=== PATIENT | male | born 1965 | race Caucasian/White ===

== ENCOUNTER 2017-05-22 14:04 | Outpatient (CLI) | payer MEDICARE, MEDICAID, SELFPAY ==
[2017-05-22 14:21] VITALS: BMI 36.4
[2017-05-22 14:40] VITALS: BP 86/49; PULSE 68; RESP 20; TEMP 36.6; O2SAT 98
[2017-05-22 14:51] LABS: Anion Gap 11.1 mEq/L (5-15); Blood Urea Nitrogen 20 mg/dL (7-18); Carbon Dioxide 30 mmol/L (21.0-32.0); Chloride 103 mmol/L (98-107); Creatinine Clearance Estimated 127 mL/min (0-300); Creatinine,Serum 1.11 mg/dL (0.70-1.30); Estimated Glomerular Filt Rate 70 ml/min (>60); GFR (African American) 84 ML/MIN (>60); Glucose 220 mg/dL (74-106); Potassium 4.1 mmoL/L (3.5-5.1); Sodium 140 mmol/L (136-145)
[2017-05-22 15:05] VITALS: BP 86/49; PULSE 68; RESP 20; TEMP 36.6; O2SAT 98
== END 2017-05-22 15:00 | disposition home or self-care (01) ==
LOC: INF 14:04
PROVIDERS: Visit Provider Urology
DX: N39.0 Urinary tract infection, site not specified (principal)
CPT/HCPCS: 80048; 96372; J1335

== ENCOUNTER 2017-05-23 14:42 | Outpatient (CLI) | payer MEDICARE, MEDICAID, SELFPAY ==
[2017-05-23 15:08] VITALS: BP 86/50; PULSE 71; RESP 20; TEMP 36.8; O2SAT 97
[2017-05-23 15:59] LABS: Basophils % 0.4 % (0.1-2.0); Eosinophils # 0.2 K/mm3 (0.0-0.4); Eosinophils % 4.1 % (0.1-12.0); Hematocrit 47.7 % (42.0-52.0); Hemoglobin 14.8 g/dL (14.1-18.0); Lymphocytes # 1.4 K/mm3 (0.7-4.5); Lymphocytes % 26.3 K/mm3 (10-50); Mean Corpuscular HGB Conc 31.1 g/dL (31.8-35.4); Mean Corpuscular Hemoglobin 29.2 pg (27.0-31.2); Mean Corpuscular Volume 93.9 fl (80-94); Monocytes # 0.4 K/mm3 (0.1-1.0); Monocytes % 7.7 % (1.7-9.3); Neutrophils # 3.2 K/mm3 (1.8-7.8); Neutrophils % 61.5 % (37.0-80.0); Platelet Count 205 K/mm3 (142-424); Red Blood Count 5.08 M/mm3 (4.60-6.20); Red Cell Distribution Width 14.5 % (11.5-17.5); White Blood Count 5.2 K/mm3 (4.8-10.8)
[2017-05-23 19:31] LABS: Alanine Aminotransferase 32 U/L (12-78); Albumin Level 3.2 gm/dL (3.4-5.0); Alkaline Phosphatase 86 U/L (46-116); Anion Gap 13.1 mEq/L (5-15); Aspartate Amino Transferase 8 U/L (15-37); Bilirubin,Total 0.2 mg/dL (0.2-1.0); Blood Urea Nitrogen 18 mg/dL (7-18); Calcium 8.4 mg/dL (8.5-10.1); Carbon Dioxide 29 mmol/L (21.0-32.0); Chloride 102 mmol/L (98-107); Creatinine,Serum 0.99 mg/dL (0.70-1.30); Estimated Glomerular Filt Rate 79 ml/min (>60); GFR (African American) 96 ML/MIN (>60); Globulin 3.3 gm/dl (1.3-3.2); Glucose 237 mg/dL (74-106); Magnesium 1.5 mg/dL (1.4-2.2); Potassium 4.1 mmoL/L (3.5-5.1); Sodium 140 mmol/L (136-145); Total Protein,Serum 6.5 gm/dL (6.4-8.2)
[2017-05-25 19:23] LABS: Vitamin B12 426 pg/mL (232-1245)
== END 2017-05-23 15:20 | disposition home or self-care (01) ==
LOC: INF 14:42
PROVIDERS: Visit Provider Urology
DX: K59.09 Other constipation (principal); R10.11 Right upper quadrant pain; Z12.11 Encounter for screening for malignant neoplasm of colon; Z79.899 Other long term (current) drug therapy
CPT/HCPCS: 36415; 80053; 82607; 83735; 85025; 96372; J1335

== ENCOUNTER 2017-05-24 15:40 | Outpatient (CLI) | payer MEDICARE, MEDICAID, SELFPAY ==
[2017-05-24 16:10] VITALS: BP 112/67; PULSE 80; RESP 18; TEMP 36.4
== END 2017-05-24 16:25 | disposition home or self-care (01) ==
LOC: INF 15:55
PROVIDERS: Visit Provider Urology
DX: N39.0 Urinary tract infection, site not specified (principal)
CPT/HCPCS: 96372; J1335

== ENCOUNTER 2017-05-25 13:35 | Outpatient (CLI) | payer MEDICARE, MEDICAID, SELFPAY ==
[2017-05-25 14:05] VITALS: BP 105/66; PULSE 77; RESP 18; TEMP 36.9
== END 2017-05-25 14:20 | disposition home or self-care (01) ==
LOC: INF 13:42
PROVIDERS: Visit Provider Urology
DX: N39.0 Urinary tract infection, site not specified (principal)
CPT/HCPCS: 96372; J1335

== ENCOUNTER → 2017-05-26 13:56 | Outpatient (CLI) | payer MEDICARE, MEDICAID, SELFPAY ==
[2017-05-26 13:56] VITALS: BP 107/59; PULSE 70; RESP 20; TEMP 36.8; O2SAT 96
[2017-05-26 14:19] VITALS: BP 107/59; PULSE 70; RESP 20; TEMP 36.8; O2SAT 98; BMI 80.6
== END ==
PROVIDERS: Visit Provider Urology
DX: N39.0 Urinary tract infection, site not specified (principal)
CPT/HCPCS: 96372; G0463; J1335

== ENCOUNTER → 2017-05-27 13:06 | Outpatient (CLI) | payer MEDICARE, MEDICAID, SELFPAY ==
[2017-05-27 13:06] VITALS: BP 98/62; PULSE 78; RESP 18; TEMP 36.9; O2SAT 97
[2017-05-27 13:25] VITALS: BP 90/61; PULSE 77; RESP 18; TEMP 36.7; O2SAT 98; BMI 36.6
== END ==
PROVIDERS: Visit Provider Urology
DX: N39.0 Urinary tract infection, site not specified (principal)
CPT/HCPCS: 96372; G0463; J1335

== ENCOUNTER 2017-05-28 13:50 | Outpatient (CLI) | payer MEDICARE, MEDICAID, SELFPAY ==
[2017-05-28 13:45] VITALS: BP 118/70; PULSE 68; RESP 20; TEMP 37.1; O2SAT 96
[2017-05-28 14:10] VITALS: BP 118/70; PULSE 68; RESP 20; TEMP 37.1; O2SAT 96
== END 2017-05-28 14:10 | disposition home or self-care (01) ==
LOC: INF 13:53
PROVIDERS: Visit Provider Urology
DX: N39.0 Urinary tract infection, site not specified (principal)
CPT/HCPCS: 96372; J1335

== ENCOUNTER 2017-05-29 13:45 | Outpatient (CLI) | payer MEDICARE, MEDICAID, SELFPAY ==
[2017-05-29 13:35] VITALS: BP 135/90; PULSE 68; RESP 20; TEMP 36.6; O2SAT 96
[2017-05-29 14:30] VITALS: BP 135/90; PULSE 68; RESP 20; TEMP 36.6; O2SAT 96
== END 2017-05-29 14:30 | disposition home or self-care (01) ==
LOC: INF 13:48
PROVIDERS: Visit Provider Urology
DX: N39.0 Urinary tract infection, site not specified (principal)
CPT/HCPCS: 96372; J1335

== ENCOUNTER 2017-05-30 13:30 | Outpatient (CLI) | payer MEDICARE, MEDICAID, SELFPAY ==
[2017-05-30 13:48] VITALS: BP 91/52; PULSE 74; RESP 18; TEMP 36.6; O2SAT 95
== END 2017-05-30 14:00 | disposition home or self-care (01) ==
LOC: INF 13:45
PROVIDERS: Visit Provider Urology
DX: N39.0 Urinary tract infection, site not specified (principal)
CPT/HCPCS: 96372; J1335

== ENCOUNTER 2017-05-31 14:40 | Outpatient (CLI) | payer MEDICARE, MEDICAID, SELFPAY ==
[2017-05-31 15:10] VITALS: BP 127/82; PULSE 67; RESP 18; TEMP 36.1; O2SAT 94
== END 2017-05-31 15:25 | disposition home or self-care (01) ==
LOC: INF 14:45
PROVIDERS: Visit Provider Urology
DX: N39.0 Urinary tract infection, site not specified (principal)
CPT/HCPCS: 96372; J1335

== ENCOUNTER → 2017-07-18 20:53 | Outpatient (CLI) | payer MEDICARE, MEDICAID, SELFPAY | PROVIDERS: PCP Family Medicine; Visit Provider Specialist | DX: G47.33 Obstructive sleep apnea (adult) (pediatric) (principal) | CPT/HCPCS: 95811 ==

== ENCOUNTER 2017-10-09 14:07 | Outpatient (CLI) | payer MEDICARE, MEDICAID, SELFPAY ==
[2017-10-09 14:30] VITALS: BP 110/65; PULSE 59; RESP 20; TEMP 36.7; O2SAT 97
[2017-10-09 14:49] LABS: Anion Gap 14.1 mEq/L (5-15); Blood Urea Nitrogen 20 mg/dL (7-18); Calcium 8.8 mg/dL (8.5-10.1); Carbon Dioxide 28 mmol/L (21.0-32.0); Chloride 105 mmol/L (98-107); Creatinine,Serum 1.06 mg/dL (0.70-1.30); Estimated Glomerular Filt Rate 73 ml/min (>60); GFR (African American) 89 ML/MIN (>60); Glucose 227 mg/dL (74-106); Potassium 4.1 mmoL/L (3.5-5.1); Sodium 143 mmol/L (136-145)
== END 2017-10-09 14:40 | disposition home or self-care (01) ==
LOC: INF 14:07
PROVIDERS: PCP Family Medicine; Visit Provider Urology
DX: N39.0 Urinary tract infection, site not specified (principal)
CPT/HCPCS: 80048; 96372; J1335

== ENCOUNTER 2017-10-10 14:00 | Outpatient (CLI) | payer MEDICARE, MEDICAID, SELFPAY ==
[2017-10-10 14:15] VITALS: BP 129/84; PULSE 66; RESP 18
== END 2017-10-10 14:15 | disposition home or self-care (01) ==
LOC: INF 14:14
PROVIDERS: PCP Family Medicine; Visit Provider Urology
DX: N39.0 Urinary tract infection, site not specified (principal)
CPT/HCPCS: 96372; J1335

== ENCOUNTER 2017-10-11 13:49 | Outpatient (CLI) | payer MEDICARE, MEDICAID, SELFPAY ==
[2017-10-11 14:00] VITALS: BP 86/53; PULSE 73; RESP 18; TEMP 36.6; O2SAT 93
== END 2017-10-11 14:00 | disposition home or self-care (01) ==
LOC: INF 13:49
PROVIDERS: PCP Family Medicine; Visit Provider Urology
DX: N39.0 Urinary tract infection, site not specified (principal)
CPT/HCPCS: 96372; J1335

== ENCOUNTER 2017-10-12 14:00 | Outpatient (CLI) | payer MEDICARE, MEDICAID, SELFPAY ==
[2017-10-12 14:35] VITALS: BP 84/59; PULSE 80; RESP 18; TEMP 36.4; O2SAT 94
== END 2017-10-12 14:35 | disposition home or self-care (01) ==
LOC: INF 14:20
PROVIDERS: PCP Family Medicine; Visit Provider Urology
DX: N39.0 Urinary tract infection, site not specified (principal)
CPT/HCPCS: 96372; J1335

== ENCOUNTER → 2017-10-13 15:33 | Outpatient (CLI) | payer MEDICARE, MEDICAID, SELFPAY ==
[2017-10-13 15:51] VITALS: BP 111/66; PULSE 76; RESP 18; TEMP 37.2; O2SAT 95; BMI 36.0
[2017-10-13 15:55] VITALS: BP 111/66; PULSE 76; RESP 18; TEMP 37.2; O2SAT 95
== END ==
PROVIDERS: PCP Family Medicine; Visit Provider Urology
DX: N39.0 Urinary tract infection, site not specified (principal)
CPT/HCPCS: 96372; G0463; J1335

== ENCOUNTER → 2017-10-14 14:35 | Outpatient (CLI) | payer MEDICARE, MEDICAID, SELFPAY ==
[2017-10-14 14:35] VITALS: BP 110/46; PULSE 77; RESP 18; TEMP 36.6; O2SAT 97
[2017-10-14 14:47] VITALS: BP 107/48; PULSE 77; RESP 18; TEMP 36.6; O2SAT 95; BMI 36.0
== END ==
PROVIDERS: PCP Family Medicine; Visit Provider Urology
DX: N39.0 Urinary tract infection, site not specified (principal)
CPT/HCPCS: 96372; G0463; J1335

== ENCOUNTER 2017-10-15 14:58 | Outpatient (CLI) | payer MEDICARE, MEDICAID, SELFPAY ==
[2017-10-15 15:10] VITALS: BP 103/63; PULSE 69; RESP 18; O2SAT 97
== END 2017-10-15 15:10 | disposition home or self-care (01) ==
LOC: INF 14:59
PROVIDERS: PCP Family Medicine; Visit Provider Urology
DX: N39.0 Urinary tract infection, site not specified (principal)
CPT/HCPCS: 96372; J1335

== ENCOUNTER 2017-10-16 14:24 | Outpatient (CLI) | payer MEDICARE, MEDICAID, SELFPAY ==
[2017-10-16 14:22] VITALS: BP 88/64; PULSE 74; RESP 18; TEMP 36.7; O2SAT 95
== END 2017-10-16 14:35 | disposition home or self-care (01) ==
LOC: INF 14:24
PROVIDERS: PCP Family Medicine; Visit Provider Urology
DX: N39.0 Urinary tract infection, site not specified (principal)
CPT/HCPCS: 96372; J1335

== ENCOUNTER 2017-10-17 14:05 | Outpatient (CLI) | payer MEDICARE, MEDICAID, SELFPAY ==
[2017-10-17 14:30] VITALS: BP 86/58; PULSE 71; RESP 18; TEMP 36.6; O2SAT 95
== END 2017-10-17 14:38 | disposition home or self-care (01) ==
LOC: INF 14:20
PROVIDERS: PCP Family Medicine; Visit Provider Urology
DX: N39.0 Urinary tract infection, site not specified (principal)
CPT/HCPCS: 96372; J1335

== ENCOUNTER 2017-10-18 15:27 | Outpatient (CLI) | payer MEDICARE, MEDICAID, SELFPAY ==
[2017-10-18 15:32] VITALS: BP 99/60; PULSE 74; RESP 18; O2SAT 95
== END 2017-10-18 15:46 | disposition home or self-care (01) ==
LOC: INF 15:27
PROVIDERS: PCP Family Medicine; Visit Provider Urology
DX: N39.0 Urinary tract infection, site not specified (principal)
CPT/HCPCS: 96372; J1335

== ENCOUNTER → 2018-03-06 09:14 | Outpatient (CLI) | payer MEDICARE, MEDICAID, SELFPAY | PROVIDERS: PCP Family Medicine; Visit Provider Internal Medicine | DX: E11.8 Type 2 diabetes mellitus with unspecified complications (principal); G47.33 Obstructive sleep apnea (adult) (pediatric); I25.10 Atherosclerotic heart disease of native coronary artery without angina pectoris; R94.31 Abnormal electrocardiogram [ECG] [EKG] | CPT/HCPCS: 93306 ==

== ENCOUNTER → 2018-03-25 08:41 | Outpatient (CLI) | payer MEDICARE, MEDICAID, SELFPAY ==
[2018-03-25 11:10] LABS: Alanine Aminotransferase 35 U/L (12-78); Albumin Level 3.1 gm/dL (3.4-5.0); Albumin/Globulin Ratio 0.8 (1.1-1.8); Alkaline Phosphatase 85 U/L (46-116); Aspartate Amino Transferase 18 U/L (15-37); Bilirubin,Total 0.3 mg/dL (0.2-1.0); Blood Urea Nitrogen 16 mg/dL (7-18); Calcium 8.7 mg/dL (8.5-10.1); Carbon Dioxide 31 mmol/L (21.0-32.0); Chloride 101 mmol/L (98-107); Chol/HDL Ratio 4.2 (1-3.5); Cholesterol 137 mg/dL (140-200); Estimated Glomerular Filt Rate 118 ml/min (>60); GFR (African American) 143 ML/MIN (>60); Globulin 3.8 gm/dl (1.3-3.2); Glucose 158 mg/dL (74-106); HDL Cholesterol 33 mg/dL (27-67); LDL Cholesterol 46 mg/dL (0-130); Sodium 142 mmol/L (136-145); Thyroid Stimulating Hormone 1.95 uIU/ml (0.358-3.740); Total Protein,Serum 6.9 gm/dL (6.4-8.2); Triglycerides 289 mg/dL (30-200); VLDL Cholesterol 58 mg/dL (0-40)
== END ==
PROVIDERS: Visit Provider Physician Assistant
DX: E11.22 Type 2 diabetes mellitus with diabetic chronic kidney disease (principal); I10 Essential (primary) hypertension; Z13.220 Encounter for screening for lipoid disorders
CPT/HCPCS: 36415; 80053; 80061; 84443

== ENCOUNTER → 2018-04-01 14:20 | Outpatient (CLI) | payer MEDICARE, MEDICAID, SELFPAY ==
--- NOTE | 2018-04-01 14:27 | US_ITS ---
US Arterial Ankle Brachial Ind History: Skin color changes with edema, diabetes and hypertension ORDERING PHYSICIAN: Joann Marmolejo DPM PATIENT AGE: 53 years TECHNIQUE: Segmental pressures obtained of both right and left leg. These are compared to brachial blood pressure to yield index at each level sampled including summary TAMMY. The data sheets from the procedure are available in PACS FINDINGS Rest study only performed today No prior studies available for comparison. Blood pressures reported are in millimeters mercury. Bilateral ABIs are noncompressible consistent with hardening/calcification of the arteries. The right TBI is 0.90 left TAMMY 0.8 within normal limits. IMPRESSION: Noncompressible vessels of the lower extremities consistent with hardening/calcification of the arteries. ABIs not able to be calculated
== END ==
PROVIDERS: PCP Family Medicine; Visit Provider Podiatrist
DX: R09.89 Other specified symptoms and signs involving the circulatory and respiratory systems (principal)
CPT/HCPCS: 93922

== ENCOUNTER → 2018-04-12 15:31 | Outpatient (CLI) | payer MEDICARE, MEDICAID, SELFPAY ==
[2018-04-12 17:10] LABS: Anion Gap 15.2 mEq/L (5-15); Blood Urea Nitrogen 24 mg/dL (7-18); Calcium 9.5 mg/dL (8.5-10.1); Carbon Dioxide 29 mmol/L (21.0-32.0); Chloride 101 mmol/L (98-107); Estimated Glomerular Filt Rate 88 ml/min (>60); GFR (African American) 107 ML/MIN (>60); Glucose 247 mg/dL (74-106); Potassium 4.2 mmoL/L (3.5-5.1); Sodium 141 mmol/L (136-145)
== END ==
PROVIDERS: Urology; PCP Family Medicine; Visit Provider Internal Medicine
DX: I25.10 Atherosclerotic heart disease of native coronary artery without angina pectoris (principal); I51.9 Heart disease, unspecified
CPT/HCPCS: 36415; 80048

== ENCOUNTER 2018-06-25 15:00 | Outpatient (RCR) | payer MEDICARE, MEDICAID, SELFPAY ==
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
== END 2018-06-25 15:05 | disposition home or self-care (01) ==
LOC: PT 15:00
PROVIDERS: Visit Provider Podiatrist
DX: I89.0 Lymphedema, not elsewhere classified (principal); R09.89 Other specified symptoms and signs involving the circulatory and respiratory systems
CPT/HCPCS: 97140; 97162; 97760

== ENCOUNTER 2018-06-28 14:49 | Outpatient (CLI) | payer MEDICARE, MEDICAID, SELFPAY ==
[2018-06-28 15:10] VITALS: BP 125/75; PULSE 84; RESP 18; O2SAT 97
== END 2018-06-28 15:25 | disposition home or self-care (01) ==
LOC: INF 14:49
PROVIDERS: Visit Provider Urology
DX: N39.0 Urinary tract infection, site not specified (principal)
CPT/HCPCS: 96372; J1335

== ENCOUNTER 2018-06-29 18:37 | Outpatient (CLI) | payer MEDICARE, MEDICAID, SELFPAY ==
[2018-06-29 18:58] VITALS: BP 93/51; PULSE 96; RESP 16; O2SAT 98
[2018-06-29 19:11] VITALS: BP 93/51; PULSE 95; RESP 16; O2SAT 97
== END 2018-06-29 19:11 | disposition home or self-care (01) ==
LOC: INF 18:38
PROVIDERS: PCP Family Medicine; Visit Provider Urology
DX: N39.0 Urinary tract infection, site not specified (principal)
CPT/HCPCS: 96372; J1335

== ENCOUNTER 2018-06-30 14:03 | Outpatient (CLI) | payer MEDICARE, MEDICAID, SELFPAY ==
[2018-06-30 14:32] VITALS: BP 80/53; PULSE 99; RESP 16
[2018-06-30 14:34] VITALS: BP 80/53; PULSE 99; RESP 16; O2SAT 100
== END 2018-06-30 14:34 | disposition home or self-care (01) ==
LOC: INF 14:04
PROVIDERS: PCP Family Medicine; Visit Provider Urology
DX: N39.0 Urinary tract infection, site not specified (principal)
CPT/HCPCS: 96372; J1335

== ENCOUNTER 2018-07-01 13:55 | Outpatient (CLI) | payer MEDICARE, MEDICAID, SELFPAY ==
[2018-07-01 13:55] VITALS: BP 102/46; PULSE 40; RESP 18; TEMP 37.1; O2SAT 95; O2SAT 96
== END 2018-07-01 14:05 | disposition home or self-care (01) ==
LOC: INF 14:12
PROVIDERS: Visit Provider Urology
DX: N39.0 Urinary tract infection, site not specified (principal)
CPT/HCPCS: 96372; J1335

== ENCOUNTER 2018-07-02 14:18 | Outpatient (CLI) | payer MEDICARE, MEDICAID, SELFPAY ==
[2018-07-02 14:29] VITALS: BP 89/65; PULSE 62; RESP 18; TEMP 36.5; O2SAT 95
--- NOTE | 2018-07-02 14:35 | PC.NURSE ---
1429 Invanz 500mg IM given per R thigh. Pt maki well. No prob noted at site.
== END 2018-07-02 14:39 | disposition home or self-care (01) ==
LOC: INF 14:18
PROVIDERS: Visit Provider Urology
DX: N39.0 Urinary tract infection, site not specified (principal)
CPT/HCPCS: 96372; J1335

== ENCOUNTER 2018-07-02 15:00 | Outpatient (RCR) | payer MEDICARE, MEDICAID, SELFPAY | END 2018-07-02 15:05 | disposition home or self-care (01) | LOC: PT 15:00 | PROVIDERS: Visit Provider Physical Medicine & Rehabilitation | DX: G82.50 Quadriplegia, unspecified (principal) | CPT/HCPCS: 97110; 97112; 97140; 97163; 97530 ==

== ENCOUNTER 2018-07-03 14:03 | Outpatient (CLI) | payer MEDICARE, MEDICAID, SELFPAY ==
--- NOTE | 2018-07-03 14:06 | PC.NURSE ---
1406 Invanz 500mg IM L thigh given. Pt maki well.
== END 2018-07-03 14:15 | disposition home or self-care (01) ==
LOC: INF 14:03
PROVIDERS: Visit Provider Urology
DX: N39.0 Urinary tract infection, site not specified (principal)
CPT/HCPCS: 96372; J1335

== ENCOUNTER 2018-07-04 12:30 | Outpatient (CLI) | payer MEDICARE, MEDICAID, SELFPAY ==
[2018-07-04 12:45] VITALS: BP 73/57; PULSE 91; RESP 18; O2SAT 94
== END 2018-07-04 13:00 | disposition home or self-care (01) ==
LOC: INF 12:37
PROVIDERS: Visit Provider Urology
DX: N39.0 Urinary tract infection, site not specified (principal)
CPT/HCPCS: 96372; J1335

== ENCOUNTER 2018-07-05 15:40 | Outpatient (CLI) | payer MEDICARE, MEDICAID, SELFPAY ==
[2018-07-05 15:45] VITALS: BP 89/48; PULSE 68; RESP 20; TEMP 36.9
== END 2018-07-05 16:00 | disposition home or self-care (01) ==
LOC: INF 15:40
PROVIDERS: Visit Provider Urology
DX: N39.0 Urinary tract infection, site not specified (principal)
CPT/HCPCS: 96372; J1335

== ENCOUNTER → 2018-07-06 08:58 | Outpatient (CLI) | payer MEDICARE, MEDICAID, SELFPAY ==
[2018-07-06 09:37] LABS: Creatinine,Urine Random 23 mg/dL (20-320)
[2018-07-06 10:32] LABS: Magnesium 1.6 mg/dL (1.4-2.2)
[2018-07-06 12:43] LABS: Alanine Aminotransferase 40 U/L (12-78); Albumin Level 3.3 gm/dL (3.4-5.0); Albumin/Globulin Ratio 0.9 (1.1-1.8); Alkaline Phosphatase 80 U/L (46-116); Aspartate Amino Transferase 13 U/L (15-37); Bilirubin,Total 0.6 mg/dL (0.2-1.0); Blood Urea Nitrogen 26 mg/dL (7-18); Calcium 9.6 mg/dL (8.5-10.1); Carbon Dioxide 27 mmol/L (21.0-32.0); Chloride 98 mmol/L (98-107); Chol/HDL Ratio 4.1 (1-3.5); Cholesterol 143 mg/dL (140-200); Creatinine,Serum 1.06 mg/dL (0.70-1.30); Estimated Glomerular Filt Rate 73 ml/min (>60); GFR (African American) 88 ML/MIN (>60); Globulin 3.5 gm/dl (1.3-3.2); Glucose 145 mg/dL (74-106); HDL Cholesterol 35 mg/dL (27-67); Sodium 138 mmol/L (136-145); Thyroid Stimulating Hormone 1.21 uIU/ml (0.358-3.740); Total Protein,Serum 6.8 gm/dL (6.4-8.2)
[2018-07-06 12:44] LABS: Triglycerides 463 mg/dL (30-200)
[2018-07-06 13:23] VITALS: BP 82/54; PULSE 90; RESP 18; TEMP 36.6; O2SAT 96; BMI 32.3
[2018-07-07 23:02] LABS: Vitamin B12 1425 pg/mL (232-1245)
[2018-07-07 23:02] LABS: Microalbumin, Urine 4.7 ug/mL (Not Estab.)
== END ==
PROVIDERS: Internal Medicine Gastroenterology; Physician Assistant; PCP Family Medicine; Visit Provider Urology
DX: N39.0 Urinary tract infection, site not specified (principal); E11.22 Type 2 diabetes mellitus with diabetic chronic kidney disease; Z79.84 Long term (current) use of oral hypoglycemic drugs; Z79.899 Other long term (current) drug therapy; E78.1 Pure hyperglyceridemia; Z13.29 Encounter for screening for other suspected endocrine disorder
CPT/HCPCS: 36415; 80053; 80061; 82043; 82570; 82607; 83735; 84443; 96372; J1335

== ENCOUNTER → 2018-07-07 20:07 | Outpatient (CLI) | payer MEDICARE, MEDICAID, SELFPAY ==
[2018-07-07 20:20] VITALS: BMI 33.6
== END ==
PROVIDERS: PCP Family Medicine; Visit Provider Urology
DX: N39.0 Urinary tract infection, site not specified (principal)
CPT/HCPCS: 96372; G0463; J1335

== ENCOUNTER → 2018-07-22 13:40 | Outpatient (CLI) | payer MEDICARE, MEDICAID, SELFPAY ==
--- NOTE | 2018-07-22 13:49 | XR_ITS ---
XR DEXA axial skeleton HISTORY: ITS.REASON: SPASTIC TETRAPLEGIA,PRLONGED IMMOBILIZATION,OSTEOPOROSIS SCR ORDERING PHYSICIAN: BILLY Izquierdo PATIENT AGE: 53 years COMPARISON: None FINDINGS: The BMD measured at the Femur Total Right is 0.543 g/cm squared with a T score of -3.9. The age matched Z score of the hips is -3.0. IMPRESSION: High fracture risk with markedly low bone density. Treatment is advised. Suggest follow-up exam July 2019
== END ==
PROVIDERS: PCP Family Medicine; Visit Provider Physician Assistant
DX: G82.50 Quadriplegia, unspecified; Z74.09 Other reduced mobility; Z13.820 Encounter for screening for osteoporosis; M85.89 Other specified disorders of bone density and structure, multiple sites
CPT/HCPCS: 77080

== ENCOUNTER → 2018-07-24 14:46 | Outpatient (CLI) | payer MEDICARE, MEDICAID, SELFPAY ==
--- NOTE | 2018-07-24 14:51 | XR_ITS ---
XR chest 2V HISTORY: ITS.REASON: COUGH ORDERING PHYSICIAN: BILLY Izquierdo PATIENT AGE: 53 years COMPARISON: 11/27/2016 FINDINGS: Unremarkable cardiovascular structures. There is mild thoracic curvature convex right. There are multiple old left rib fractures with pleural thickening on the left. No acute bony findings are evident. There are postsurgical changes of the cervical spine. There is a granuloma in the left midlung. IMPRESSION: No acute finding Old left-sided rib fractures with pleural thickening
== END ==
PROVIDERS: PCP Physician Assistant; Visit Provider Physician Assistant
DX: R05 Cough (principal)
CPT/HCPCS: 71046

== ENCOUNTER 2018-07-31 14:00 | Outpatient (RCR) | payer MEDICARE, MEDICAID, SELFPAY | END 2018-07-31 14:05 | disposition home or self-care (01) | LOC: OT 14:00 | PROVIDERS: Visit Provider Physical Medicine & Rehabilitation | DX: G82.20 Paraplegia, unspecified (principal) | CPT/HCPCS: 97110; 97140; 97166 ==

== ENCOUNTER 2018-08-26 13:05 | Outpatient (CLI) | payer MEDICARE, MEDICAID, SELFPAY ==
[2018-08-26 14:15] VITALS: BMI 32.3
--- NOTE | 2018-08-26 14:17 | XR_ITS ---
XR chest portable 2:19 PM HISTORY: ITS.REASON: PICC placement ORDERING PHYSICIAN: Dat Arevalo PATIENT AGE: 53 years COMPARISON: 07/24/2018 FINDINGS: Left upper extremity PICC line has been inserted. The tip is near the region of the superior vena cava and could be pulled back 1 to 2 cm. Lungs are clear. There are old left-sided rib fractures. IMPRESSION: PICC line tip near the cavoatrial junction. Could be pulled back 1 to 2 cm. Significant findings called to Monie on 08/26/2018 2:38 PM.
[2018-08-26 15:10] VITALS: BP 101/70; PULSE 87; RESP 18; TEMP 36.9; O2SAT 97
[2018-08-26 15:39] LABS: Basophils # 0.1 K/mm3 (0-0.2); Basophils % 0.8 % (0.1-2.0); Eosinophils # 0.2 K/mm3 (0.0-0.4); Eosinophils % 2.9 % (0.1-12.0); Hematocrit 39.6 % (42.0-52.0); Hemoglobin 12.8 g/dL (14.1-18.0); Lymphocytes # 1.7 K/mm3 (0.7-4.5); Lymphocytes % 20.8 % (10-50); Mean Corpuscular HGB Conc 32.3 g/dL (31.8-35.4); Mean Corpuscular Hemoglobin 29.5 pg (27.0-31.2); Mean Corpuscular Volume 91.3 fl (80-94); Mean Platelet Volume 6.6 fl (7.4-10.4); Monocytes # 0.6 K/mm3 (0.1-1.0); Monocytes % 7.3 % (1.7-9.3); Neutrophils # 5.6 K/mm3 (1.8-7.8); Neutrophils % 68.1 % (37.0-80.0); Platelet Count 300 K/mm3 (142-424); Red Blood Count 4.34 M/mm3 (4.60-6.20); Red Cell Distribution Width 14.4 % (11.5-17.5); White Blood Count 8.3 K/mm3 (4.8-10.8)
[2018-08-26 15:52] LABS: C-Reactive Protein 4.3 mg/L (0.0-0.9)
[2018-08-26 16:06] LABS: Alanine Aminotransferase 37 U/L (12-78); Albumin/Globulin Ratio 0.7 (1.1-1.8); Alkaline Phosphatase 80 U/L (46-116); Anion Gap 12.5 mEq/L (5-15); Aspartate Amino Transferase 18 U/L (15-37); Bilirubin,Total 0.4 mg/dL (0.2-1.0); Blood Urea Nitrogen 18 mg/dL (7-18); Calcium 9.3 mg/dL (8.5-10.1); Carbon Dioxide 32 mmol/L (21.0-32.0); Chloride 101 mmol/L (98-107); Creatine Kinase 22 U/L (39-308); Creatinine Clearance Estimated 164 mL/min (50-200); Creatinine,Serum 0.75 mg/dL (0.70-1.30); Estimated Glomerular Filt Rate 109 ml/min (>60); GFR (African American) 132 ML/MIN (>60); Globulin 4.1 gm/dl (1.3-3.2); Glucose 207 mg/dL (74-106); Potassium 4.5 mmoL/L (3.5-5.1); Sodium 141 mmol/L (136-145); Total Protein,Serum 7.1 gm/dL (6.4-8.2)
[2018-08-26 16:09] VITALS: BP 102/66; PULSE 80; RESP 18; TEMP 36.9; O2SAT 97
--- NOTE | 2018-08-26 16:30 | SW/DCPLANNER ---
Addendum entered by Genie Hernandes 08/27/18 10:00: I have spoke with Sandy from [facility]: medication will be delivered at 1:30 today. I have spoke with Louise from [facility] and infusion will begin at home through their agency today at 2PM. I have notified patients and she is fine with this plan. Patient will begin home health services today. Addendum entered by Genie Hernandes 08/26/18 16:46: Sandy from [facility] has called and stated that patient is 100% covered and will not owe any money. I have informed patients and she is fine with plan....I will fax patient information to [facility] follow up with them in the AM. Original Note: Received notification from Joselyn in infusions regarding patient wanting to receive IV antibiotics at home. Patient did have a PICC line placed today. I did make contact with patients doctors office in [place] for clinicals for IV antibiotics. Patient order for IV Invanz and Cublain have been faxed to Sandy at [facility]. Sandy has confirmed that patient information has been received. I however have not heard back from Sandy regarding an out of pocket expense at this time. I have notified patients to inform her that I will follow up with her first thing in the AM. I will notify Sandy at [facility], patients , and home health in the AM. has chose for patient to receive care under [facility]. will be home everyday after 2PM to assist with infusion.
[2018-08-26 16:39] VITALS: BP 100/67; PULSE 81; RESP 18; O2SAT 97
--- NOTE | 2018-08-26 16:45 | PC.NURSE ---
Genie Hernandes checking into setting up home health services for patient. Wound care evaluation order from Dr. Arevalo faxed to care management/ wound care/PT dept notified of need for eval/ per Brandon, they will proceed based upon whether or not pt approved for home health. Care handed off/report given to JONY Crump at this time.
[2018-08-26 16:46] LABS: Erythrocyte Sedimentation Rate 90 mm/hr (0-20)
[2018-08-26 16:50] VITALS: BP 97/62; PULSE 82; RESP 18; O2SAT 96
== END 2018-08-26 16:50 | disposition home or self-care (01) ==
LOC: INF 13:05
PROVIDERS: Visit Provider Internal Medicine Infectious Disease
DX: N49.2 Inflammatory disorders of scrotum (principal); L89.309 Pressure ulcer of unspecified buttock, unspecified stage; A49.02 Methicillin resistant Staphylococcus aureus infection, unspecified site; G82.50 Quadriplegia, unspecified
CPT/HCPCS: 36569; 71045; 80053; 82550; 85025; 85651; 86140; 96365; 96367; C1751; J0878; J1335

== ENCOUNTER → 2018-10-07 08:58 | Outpatient (CLI) | payer MEDICARE, MEDICAID, SELFPAY ==
[2018-10-07 10:10] LABS: Chol/HDL Ratio 3.7 (1-3.5); Cholesterol 121 mg/dL (140-200); HDL Cholesterol 33 mg/dL (27-67); LDL Cholesterol 27 mg/dL (0-130); Triglycerides 305 mg/dL (30-200); VLDL Cholesterol 61 mg/dL (0-40)
[2018-10-07 10:15] LABS: Hemoglobin A1C 7.4 % (0.0-7.0)
== END ==
PROVIDERS: Visit Provider Family Medicine
DX: E11.22 Type 2 diabetes mellitus with diabetic chronic kidney disease (principal); E78.1 Pure hyperglyceridemia; Z79.84 Long term (current) use of oral hypoglycemic drugs
CPT/HCPCS: 36415; 80061; 83036

== ENCOUNTER 2018-10-30 02:18 | Inpatient (IN) ==
--- NOTE | 2018-10-30 02:37 | Emergency Department Note ---
ED Disposition Clinical Impression: Severe sepsis, Septic shock, Enterocolitis, Elevated erythrocyte sedimentation rate, MEHREEN (acute kidney injury), Hyponatremia, Hyperkalemia Cholelithiasis Qualifiers: Cholelithiasis location: gallbladder Cholecystitis presence: without cholecystitis Biliary obstruction: without biliary obstruction Qualified Code(s): K80.20 - Calculus of gallbladder without cholecystitis without ob struction Diabetes mellitus Qualifiers: Diabetes mellitus type: type 2 Diabetes mellitus analytical sciences director insulin use: with analytical sciences director use Diabetes mellitus complication status: with other specified complication Qualified Code(s): E11.69 - Type 2 diabetes mellitus with other specified complication; Z79.4 - meter tester primary (current) use of insulin Disposition: Admitted As Inpatient Condition on Discharge: Serious Instructions: DI for Diarrhea and Traveler's Diarrhea -- Adult, DI for Diarrhea and Traveler's Diarrhea -- Child, DI for Nausea -- Adult, DI for Nausea -- Child Referrals: Carlos Hale MD [Primary Care Provider] - - Critical Care Critical Care Time: No Attestation: On 10/30/18, the high probability of a clinically significant, sudden or life threatening deterioration of the following system(s) required my full and direct attention, intervention and personal management. The time I documented below is in addition to time spent performing reported procedures but includes the following listed in this critical care notation. Medical Decision Making - Medical Records Medical records reviewed: Yes: I reviewed the patient's medical records. - Ric Inquiry Pt receiving controlled substance: No Vital Signs: 10/30/18 02:19 10/30/18 04:01 10/30/18 04:25 Temperature 95.2 F L 94.7 F L Temperature Source Rectal Rectal Pulse Rate [Right] 65 74 76 Respiratory Rate 18 18 18 Blood Pressure [Right Arm] 84/44 L 72/48 L 74/43 L Blood Pressure Mean [Right Arm] 57 56 53 Blood Pressure Source [Right Arm] Manual Cuff/ Auscultation Blood Pressure Position [Right Arm] Supine Supine 02 Sat by Pulse Oximetry 99 99 94 L Oxygen Delivery Method Room Air Room Air Room Air 10/30/18 04:44 Temperature Temperature Source Pulse Rate [Right] 82 Respiratory Rate 18 Blood Pressure [Right Arm] 70/43 L Blood Pressure Mean [Right Arm] 52 Blood Pressure Source [Right Arm] Blood Pressure Position [Right Arm] 02 Sat by Pulse Oximetry 94 L Oxygen Delivery Method Room Air - Lab Data Lab results reviewed: Yes: I reviewed the patient's lab results. Lab Results 10/30/18 02:24: WBC 9.3, RBC 4.14 L, Hgb 12.1 L, Hct 38.3 L, MCV 92.5, MCH 29.2, MCHC 31.5 L, RDW 15.6, Plt Count 249, MPV 7.3 L, Neut % (Auto) 76.4, Lymph % (Auto) 13.6, Nicol[place] % (Auto) 5.7, Eos % (Auto) 3.7, Baso % (Auto) 0.6, Neut # (Auto) 7.1, Lymph # (Auto) 1.3, [place] # (Auto) 0.5, Eos # (Auto) 0.4, Baso # (Auto) 0.1, ESR 87 H 10/30/18 02:24: Sodium 121 L, Potassium 6.0 H, Chloride 91 L, Carbon Dioxide 21, Anion Gap 15.0, BUN 52 H, Creatinine 1.44 H, Estimated Creat Clear 77, Estimated GFR 51 L, Est GFR ( Amer) 62, Glucose 135 H, Calcium 8.8, Total Bilirubin 0.2, AST 9 L, ALT 10 L, Alkaline Phosphatase 62, C-Reactive Protein 0.7, Total Protein 6.7, Albumin 2.3 L, Globulin 4.4 H, Albumin/Globulin Ratio 0.5 L, Amylase 37, Lipase 218 10/30/18 02:24: Lactate 2.3 H 10/30/18 02:24: Urine Color Yellow, Urine Appearance Clear, Urine pH 5.5, Ur Specific [place] 1.020, Urine Protein 1+, Urine Glucose (UA) 1+, Urine Ketones Negative, Urine Blood 1+, Urine Nitrate Negative, Urine Bilirubin Negative, Urine Urobilinogen 0.2, Ur Leukocyte Esterase Trace, Urine RBC 5-10, Urine WBC 3-5, Ur Squamous Epith Cells 5-10, Amorphous Sediment 2+, Urine Bacteria 1+, Fine Granular Casts 3-5, Urine Mucus 1+ Result diagrams: 10/30/18 02:24 10/30/18 02:24 Orders (Tests/Meds): ED MEDICATIONS Generic Name Dose Route Start Last Admin Trade Name Freq PRN Reason Stop Dose Admin Sodium Chloride 1,000 mls @ 999 mls/hr 10/30/18 02:45 10/30/18 03:04 Sod Chlor 0.9% 1000ml Bag IV 10/30/18 03:45 999 mls/hr .Q1H1M SHELIA Administration Sodium Chloride 2,750 mls @ 1,375 mls/hr 10/30/18 04:04 10/30/18 04:06 Sod Chlor 0.9% 1000ml Bag 30 ml/kg infuse over 2 hr (2750 ml) 10/30/18 06:03 1,375 mls/hr IV Administration .Q2H ONE Discontinued Medications Generic Name Dose Route Start Last Admin Trade Name Freq PRN Reason Stop Dose Admin Ioversol 70 ml 10/30/18 03:57 10/30/18 03:59 Rad-Optiray 350 100ml Vial IV 10/30/18 03:58 70 ml ONCE ONE Administration Protocol Ondansetron HCl 4 mg 10/30/18 02:33 10/30/18 03:04 Zofran 4mg/2ml Vial IV 10/30/18 02:34 4 mg ONCE ONE Administration Sodium Chloride 10 ml 10/30/18 03:57 10/30/18 03:59 Rad-Saline Flush 10ml Syringe IV 10/30/18 03:58 10 ml ONCE ONE Administration ORDERS Category Date Time Status CT abdomen pelvis w con Stat Cat Scan 10/30/18 02:33 Taken Diarrhea 6-11 Panel, Cdiff PCR Stat Lab 10/30/18 04:00 Received Blood Culture Stat Micro 10/30/18 02:24 Received Blood Culture Stat Micro 10/30/18 04:47 Ordered - CT Data CT Scan: Abdomen, Pelvis Time Received: 03:[address] Reviewed: Yes: I have viewed the radiologist's interpretation Preliminary Findings: Abnormal (enterocolitis ) - Physician Consults Physician Consulted: mily Reason -: Admission Nausea/Vomiting/Diarrhea HPI - General Chief complaint: Nausea/Vomiting/Diarrhea Stated complaint: Nausea Time Seen by Provider: 10/30/18 02:25 Mode of Arrival: EMS Source of Information: Patient, Relative, EMS, Medical Record Limitations: Physical Limitations Description of Symptoms (Recalled from ER Triage Doc. by RN): Pt here via EMS f or nausea and not feeling well - History of Present Illness HPI Narrative: this pt has complex case of being on abx from [place] for osteo from buttock wds - he is at [facility] and sent for low bp - no vomiting - pt has diabetes - pt has abn electrolytes and was admitted for ivf and continued abx as he meets sepsis criteria with septic shock MD complaint: nausea Onset (ago): hour(s) Associated Abdominal Pain: Yes Location of pain: diffuse Severity: moderate Context: recent antibiotic use Associated symptoms: denies other symptoms - Related Data Home Medications Medication Instructions Recorded Confirmed Aspirin [Aspirin 81mg EC Tab] 81 mg PO DAILY 05/22/17 10/30/18 Metformin HCl [Fortamet] 1,000 mg PO BID 05/22/17 10/30/18 Simvastatin 40 mg PO DAILY 05/22/17 10/30/18 Ascorbic Acid [Vitamin C] 1,000 mg PO DAILY 05/24/17 10/30/18 Lactobacillus Acidophilus 1 each PO DAILY 05/24/17 10/30/18 [Probiotic] Omeprazole [Omeprazole 20mg Tab] 20 mg PO BID 05/24/17 10/30/18 Oxybutynin Chloride [Oxybutynin 5 mg PO DAILY 05/24/17 10/30/18 Chloride ER] gabapentin 300 mg capsule 300 mg PO BID 30 Days #60 cap 02/12/18 10/30/18 linaclotide 145 mcg capsule 145 mcg PO DAILY 90 Days cap 03/21/18 10/30/18 liraglutide 0.6 mg/0.1 mL (18 mg/3 1.8 mg SQ DAILY 04/02/18 10/30/18 mL) subcutaneous pen injector lisinopril 5 mg tablet 2.5 mg PO DAILY tab 08/06/18 10/30/18 Acetaminophen [Tylenol 500mg 1,000 mg PO Q6 PRN 10/30/18 10/30/18 tablet] Bisacodyl [Dulcolax 10mg Supp] 10 mg RC DAILYP PRN 10/30/18 10/30/18 Cefepime HCl in Dextrose 5 % 2 gm IV TID 10/30/18 10/30/18 [Cefepime-Dextrose 2 gm/50 ml] Cyanocobalamin (Vitamin B-12) 100 mcg PO DAILY 10/30/18 10/30/18 [Vitamin B-12] Dantrolene Sodium 50 mg PO TID 10/30/18 10/30/18 Empagliflozin [Jardiance] 25 mg PO DAILY 10/30/18 10/30/18 Furosemide [Furosemide 20mg Tab] 20 mg PO DAILY 10/30/18 10/30/18 Icosapent Ethyl [Vascepa] 0.5 gm PO BID 10/30/18 10/30/18 Imipenem/Cilastatin Sodium 250 mg IV TID 10/30/18 10/30/18 [Imipenem-Cilastatin 250 mg Vl] Trazodone HCl 50 mg PO HS 10/30/18 10/30/18 Zinc Sulfate [Zinc Sulfate 220mg 220 mg PO DAILY 10/30/18 10/30/18 capsule] metroNIDAZOLE [metroNIDAZOLE 500mg 500 mg PO TID 10/30/18 10/30/18 Tablet] Previous Rx's Medication Instructions Recorded spironolactone 25 mg tablet 25 mg PO DAILY #30 tab 09/26/18 Allergies Allergy/AdvReac Type Severity Reaction Status Date / Time nitrofurantoin Allergy Intermediate I-RASH Verified 08/26/18 15:52 [NITROFURANTOIN] gentamicin [Gentamicin] Allergy Unknown Verified 08/26/18 15:52 oxycodone [OXYCODONE] Allergy Unknown NA-NAUSEA Verified 08/26/18 15:52 Penicillins [PENICILLINS] Allergy Unknown I-RASH Verified 08/26/18 15:52 tizanidine [TIZANIDINE] Allergy Unknown Verified 08/26/18 15:52 oxytetracycline Allergy Verified 08/26/18 15:52 [From Terramycin] sulfamethoxazole Allergy Verified 08/26/18 15:52 [facility] History - Hepatitis A Screen Drug use history?: No High risk sexual behaviors?: No History of sexually transmitted infection?: No Currently employed?: No Childcare worker?: No Do you have indoor plumbing?: Yes Do you have electricity?: Yes Attestation statement:: This patient has been screened for Hepatitis A risk factors. I have reviewed the patient's past medical history: Yes Medical History: Reports:: Coronary Artery Disease, Diabetes Mellitus Type 2, Hyperlipidemia, Hypertension, Renal Disease Other Medical History: Reports: Arthritis Comment: HONG Laterality Cases: Bilateral: Arthroscopy Shoulder Other Surgeries: Yes: Cardiac Surgery, Colonoscopy, EGD Comment: rotator cuff, c4/c5 diffuse, decompression c2-c7 - Social History Smoking Status: Never smoker Alcohol Intake: never Alcohol Intake Frequency:: other Substance Use Type: denies use Occupational Status: disabled Housing: custodial Household Members: family Family Hx:: Hypertension ROS Obtained: Yes All systems reviewed & no additional complaints - Constitutional Constitutional: Denies fever(s) - Eyes Eyes: Denies change in vision - ENT Ears, Nose, Mouth, and Throat: Denies sore throat - Cardiovascular Cardiovascular: Denies chest pain - Respiratory Respiratory: No cough - Gastrointestinal Gastrointestingal: Reports: abdominal pain - Genitourinary Male Genitourinary: Denies hematuria - Musculoskeletal Musculoskeletal: Denies joint swelling - Integumentary/Breasts Skin/Breast: Denies rash - Neurologic Neurologic: Denies seizure-like activity Physical Exam - General General appearance: alert, in no apparent distress - Head Head exam: normocephalic - Eye Eye exam: Present: PERRL, EOMI. Absent: scleral icterus - ENT ENT exam: Present: mucous membranes dry - Neck Neck exam: Present: trachea midline. Absent: meningismus - Respiratory Respiratory exam: Present: other (dec bs bilat ) - Cardiovascular Cardiovascular exam: Present: regular rate, systolic murmur - Abdominal Exam Abdominal exam: Present: soft - Extremities Exam Extremities exam: Present: other (wraps bilat lower ext ) - Neurological Exam Neurological exam: Present: alert, CN II-XII intact - Psychiatric Psychiatric exam: Present: flat affect - Skin Skin exam: Absent: rash
[2018-10-30 02:41] LABS: Microscopic, Urine URINE MICROSCOPIC (MICROSCOPIC)
[2018-10-30 02:43] LABS: Basophils # 0.1 K/mm3 (0-0.2); Basophils % 0.6 % (0.1-2.0); Eosinophils # 0.4 K/mm3 (0.0-0.4); Eosinophils % 3.7 % (0.1-12.0); Hematocrit 38.3 % (42.0-52.0); Hemoglobin 12.1 g/dL (14.1-18.0); Lymphocytes # 1.3 K/mm3 (0.7-4.5); Lymphocytes % 13.6 % (10-50); Mean Corpuscular HGB Conc 31.5 g/dL (31.8-35.4); Mean Corpuscular Volume 92.5 fl (80-94); Mean Platelet Volume 7.3 fl (7.4-10.4); Monocytes # 0.5 K/mm3 (0.1-1.0); Monocytes % 5.7 % (1.7-9.3); Neutrophils # 7.1 K/mm3 (1.8-7.8); Neutrophils % 76.4 % (37.0-80.0); Platelet Count 249 K/mm3 (142-424); Red Blood Count 4.14 M/mm3 (4.60-6.20); Red Cell Distribution Width 15.6 % (11.5-17.5); White Blood Count 9.3 K/mm3 (4.8-10.8)
[2018-10-30 02:49] LABS: Appearance,Urine CLEAR (Clear); Bilirubin,Urine Negative (Negative); Blood, Urine 1+ (Negative); Color,Urine YELLOW (Yellow); Glucose,Urine (UA) 1+ (Negative); Ketones,Urine Negative (Negative); Leukocyte Esterase,Urine TRACE (Negative); PH,Urine 5.5 (5.0-8.5); Protein,Urine 1+ (Negative); Urobilinogen,Urine 0.2 EU/dl (0.2)
[2018-10-30 02:56] LABS: Amorphous Sediment,Urine 2+ /lpf; Bacteria,Urine 1+ /lpf; Mucus,Urine 1+ /lpf
[2018-10-30 02:57] LABS: Albumin Level 2.3 gm/dL (3.4-5.0); Albumin/Globulin Ratio 0.5 (1.1-1.8); Bilirubin,Total 0.2 mg/dL (0.2-1.0); C-Reactive Protein 0.7 mg/dL (0.0-0.9); Calcium 8.8 mg/dL (8.5-10.1); Globulin 4.4 gm/dl (1.3-3.2); Total Protein,Serum 6.7 gm/dL (6.4-8.2)
[2018-10-30 03:21] LABS: Erythrocyte Sedimentation Rate 87 mm/hr (0-20)
--- NOTE | 2018-10-30 05:18 | Sepsis Event Note ---
Tissue Perfusion Evaluation Sepsis Re-Evaluation Performed: Yes Date Performed: 10/30/18 Time Performed: 05:18 Sepsis Follow-Up: Yes: Respiratory exam, Cardiovascular exam, Capillary refill, Skin exam, Vital Signs Most Recent Vital Signs: Temperature 95.4 F L 10/30/18 04:53 Temperature Source Rectal 10/30/18 04:53 Pulse Rate 82 10/30/18 04:44 Respiratory Rate 18 10/30/18 04:44 Blood Pressure 70/43 L 10/30/18 04:44 Blood Pressure Mean 52 10/30/18 04:44 Blood Pressure Source Manual Cuff/Auscultation 10/30/18 02:19 Blood Pressure Position Supine 10/30/18 04:25 02 Sat by Pulse Oximetry 94 L 10/30/18 04:44 Oxygen Delivery Method 10/30/18 04:44
[2018-10-30 07:32] LABS: Anion Gap 14.5 mEq/L (5-15)
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
[2018-10-30 09:15] LABS: ABG Base Excess -12.1 mmol/L (-2.4-2.3); ABG HCO3 16.2 mmhg (22.0-26.0); ABG Oxygen Saturation 95 % (90-100); ABG PCO2 44.6 mmhg (35.0-45.0); ABG PO2 79.3 mmhg (80-100); ABG TCO2 17.6 mmhg (23-27)
[2018-10-30 09:18] LABS: Oxygen ROOM AIR %
[2018-10-30 09:20] LABS: ABG PH 7.18 mmol/L (7.35-7.45)
--- NOTE | 2018-10-30 10:13 | Pharmacy Consult Notes ---
[facility] Pharmacy VTE Monitoring - Patient Demographics Admission date: 10/30/18 Report Date: 10/30/18 Time: 10:13 Allergies/Adverse Reactions: Patient Allergies nitrofurantoin [NITROFURANTOIN] Allergy (Intermediate, Verified 10/30/18 07:03) I-RASH gentamicin [Gentamicin] Allergy (Unknown, Verified 10/30/18 07:03) oxycodone [OXYCODONE] Allergy (Unknown, Verified 10/30/18 07:03) NA-NAUSEA Penicillins [PENICILLINS] Allergy (Unknown, Verified 10/30/18 07:03) I-RASH tizanidine [TIZANIDINE] Allergy (Unknown, Verified 10/30/18 07:03) oxytetracycline [From Terramycin] Allergy (Verified 10/30/18 07:03) sulfamethoxazole Allergy (Verified 10/30/18 07:03) Height: 1.78 m Weight: 91.626 kg Patient Problems: Current Active Problems Severe sepsis (Acute) Septic shock (Acute) Enterocolitis (Acute) Cholelithiasis (Acute) Elevated erythrocyte sedimentation rate (Acute) MEHREEN (acute kidney injury) (Acute) Hyponatremia (Acute) Hyperkalemia (Acute) Diabetes mellitus (Chronic) - VTE Risk Labs: VTE Related Lab Results Hgb 12.1 g/dL (14.1-18.0) L 10/30/18 02:24 Hct 38.3 % (42.0-52.0) L 10/30/18 02:24 Plt Count 249 K/mm3 (142-424) 10/30/18 02:24 BUN 50 mg/dL (7-18) H 10/30/18 07:08 Creatinine 1.28 mg/dL (0.70-1.30) 10/30/18 07:08 Estimated Creat Clear 86 mL/min (50-200) 10/30/18 07:08 VTE Score: 8 VTE Risk Level: Moderate Risk - Prophylaxis VTE Prophylaxis Ordered?: Yes Types of VTE Prophylaxis: TEDS Knee High Location of Applied Device: Bilateral Lower Extremeties
--- NOTE | 2018-10-30 12:00 | Progress Note ---
Internal Medicine - PN: Subj *Date: 10/30/18 *Time: 11:57 Interval history: Spoke to patient's and to Dr. Joya with [facility]. He has agreed to accept patient in transfer for further treatment. Exam Vital signs and Labs for Last 24 Hours: Temp Pulse Resp BP Pulse Ox 98.5 F 107 H 20 96/46 L 98 10/30/18 11:00 10/30/18 11:00 10/30/18 11:00 10/30/18 11:00 10/30/18 11:00 Laboratory Results - last 24 hr 10/30/18 02:24: WBC 9.3, RBC 4.14 L, Hgb 12.1 L, Hct 38.3 L, MCV 92.5, MCH 29.2, MCHC 31.5 L, RDW 15.6, Plt Count 249, MPV 7.3 L, Neut % (Auto) 76.4, Lymph % (Auto) 13.6, [place] % (Auto) 5.7, Eos % (Auto) 3.7, Baso % (Auto) 0.6, Neut # (Auto) 7.1, Lymph # (Auto) 1.3, [place] # (Auto) 0.5, Eos # (Auto) 0.4, Baso # (Auto) 0.1, ESR 87 H 10/30/18 02:24: Sodium 121 L, Potassium 6.0 H, Chloride 91 L, Carbon Dioxide 21, Anion Gap 15.0, BUN 52 H, Creatinine 1.44 H, Estimated Creat Clear 77, Estimated GFR 51 L, Est GFR ( Amer) 62, Glucose 135 H, Calcium 8.8, Total Bilirubin 0.2, AST 9 L, ALT 10 L, Alkaline Phosphatase 62, C-Reactive Protein 0.7, Total Protein 6.7, Albumin 2.3 L, Globulin 4.4 H, Albumin/Globulin Ratio 0.5 L, Amylase 37, Lipase 218 10/30/18 02:24: Lactate 2.3 H 10/30/18 02:24: Urine Color Yellow, Urine Appearance Clear, Urine pH 5.5, Ur Specific [place] 1.020, Urine Protein 1+, Urine Glucose (UA) 1+, Urine Ketones Negative, Urine Blood 1+, Urine Nitrate Negative, Urine Bilirubin Negative, Urine Urobilinogen 0.2, Ur Leukocyte Esterase Trace, Urine RBC 5-10, Urine WBC 3-5, Ur Squamous Epith Cells 5-10, Amorphous Sediment 2+, Urine Bacteria 1+, Fine Granular Casts 3-5, Urine Mucus 1+ 10/30/18 04:00: Stl Aeromonas (PCR) Not detected, Stl C. cayetanensis PCR Not detected, Stool Rotavirus (PCR) Not detected, Stl Adenov F 40/41 PCR Not detected, Stool Astrovirus (PCR) Not detected, Stool Campylobacter PCR Not detected, Stl C.difficile Tox PCR Not detected, Stool Cryptosporidium PCR Not detected, Stl E.coli Shiga Tox PCR Not detected, Stool E coli O157 PCR Not detected, Stl Enterotoxigenic E PCR Not detected, Stool EPEC (PCR) Not detected, Stool EAEC (PCR) Not detected, Stl E. histolytica PCR Not detected, Stool Giardia Lamblia PCR Not detected, Stool Salmonella PCR Not detected, Stool Sapovirus (PCR) Not detected, Stl P. shigelloides PCR Not detected, Stl Shigella/EIEC PCR Not detected, St Y.enterocolitica PCR Not detected, Stool Vibrio (PCR) Not detected, Stl Vibrio cholerae PCR Not detected, Stl Norovirus GI/GII PCR Not detected 10/30/18 06:03: POC Glucose 129 H 10/30/18 07:08: Sodium 122 L, Potassium 5.5 H, Chloride 95 L, Carbon Dioxide 18 L, Anion Gap 14.5, BUN 50 H, Creatinine 1.28, Estimated Creat Clear 86, Estimated GFR 59, Est GFR ( Amer) 71, Glucose 134 H, Calcium 8.0 L 10/30/18 07:08: Lactate 0.5 10/30/18 08:28: Specimen Source L brachial, O2 % Room air, ABG pH 7.18 L*, ABG pCO2 44.6, ABG pO2 79.3 L, ABG HCO3 16.2 L, ABG Total CO2 17.6 L, ABG O2 Saturation 95, ABG Base Excess -12.1 L I & O for Last 24 hours: Intake & Output 10/27/18 10/28/18 10/29/18 10/30/18 23:59 23:59 23:59 23:59 Intake Total 2990 / 2990 Output Total 250 / 250 Balance 2740 / 2740 Weight 202 lb Assessment and Plan (1) MEHREEN (acute kidney injury) Current visit: Yes Status: Acute Category: Medical Code(s): N17.9 - Acute kidney failure, unspecified (2) Elevated erythrocyte sedimentation rate Current visit: Yes Status: Acute Category: Medical Code(s): R70.0 - Elevated erythrocyte sedimentation rate (3) Enterocolitis Current visit: Yes Status: Acute Category: Medical Code(s): K52.9 - Noninfective gastroenteritis and colitis, unspecified (4) Hyperkalemia Current visit: Yes Status: Acute Category: Medical Code(s): E87.5 - Hyperkalemia (5) Hyponatremia Current visit: Yes Status: Acute Category: Medical Code(s): E87.1 - Hypo- osmolality and hyponatremia (6) CAD (coronary artery disease) Current visit: No Status: Chronic Qualifiers: Category: Medical Code(s): I25.10 - Atherosclerotic heart disease of [place] coronary artery without angina pectoris (7) HLD (hyperlipidemia) Current visit: No Status: Chronic Qualifiers: Category: Medical Code(s): E78.5 - Hyperlipidemia, unspecified (8) HTN (hypertension) Current visit: No Status: Chronic Qualifiers: Category: Medical Code(s): I10 - Essential (primary) hypertension (9) HONG (obstructive sleep apnea) Current visit: No Status: Chronic Category: Medical Code(s): G47.33 - Obstructive sleep apnea (adult) (pediatric) (10) SIRS (systemic inflammatory response syndrome) Current visit: Yes Status: Acute Category: Medical Code(s): R65.10 - Systemic inflammatory response syndrome (SIRS) of non-infectious origin without acute organ dysfunction (11) Metabolic acidosis Current visit: Yes Status: Acute Category: Medical Code(s): E87.2 - A cidosis (12) Occluded PICC line Current visit: Yes Status: Acute Category: Medical Code(s): T82.898A - Other specified complication of vascular prosthetic devices, implants and grafts, initial encounter - Assessment and plan all Dx Assessment and Plan for all problems:: OK to transfer to once a bed is available
--- NOTE | 2018-10-30 14:19 | Electrocardiograph Report ---
APPROVED REPORT Exam: Resting ECG HR:70 bpm ECG Measurements Heart Rate 70 AXES [place] 194 P 51 QRSd 92 QRS -27 QT 402 T46 QTc 434 <Conclusion> Normal sinus rhythm Normal ECG Electronically signed by : Milton Kent, 10/30/2018 13:46:56
[2018-10-31 06:34] LABS: Basophils % 0.3 % (0.1-2.0); Eosinophils # 0.1 K/mm3 (0.0-0.4); Hematocrit 32.1 % (42.0-52.0); Hemoglobin 10.1 g/dL (14.1-18.0); Lymphocytes # 1.6 K/mm3 (0.7-4.5); Lymphocytes % 18.9 % (10-50); Mean Corpuscular HGB Conc 31.6 g/dL (31.8-35.4); Mean Corpuscular Volume 91.7 fl (80-94); Mean Platelet Volume 7.2 fl (7.4-10.4); Monocytes # 0.7 K/mm3 (0.1-1.0); Monocytes % 8.9 % (1.7-9.3); Neutrophils # 5.9 K/mm3 (1.8-7.8); Neutrophils % 70.9 % (37.0-80.0); Platelet Count 263 K/mm3 (142-424); Red Cell Distribution Width 15.6 % (11.5-17.5); White Blood Count 8.4 K/mm3 (4.8-10.8)
[2018-10-31 06:48] LABS: Anion Gap 13.9 mEq/L (5-15); Calcium 7.8 mg/dL (8.5-10.1)
--- NOTE | 2018-10-31 08:25 | Progress Note ---
<Patricia Chau - Last Filed: 10/31/18 08:21> Internal Medicine - PN: Subj *Date: 10/31/18 *Time: 08:21 Interval history: Patient is still lethargic today but is able to answer questions without falling asleep. He denies any pain. He states he feels very weak. He has been unable to eat but is drinking. He states he has had no further vomiting. Exam Vital signs and Labs for Last 24 Hours: Temp Pulse Resp BP Pulse Ox 99.1 F 88 16 89/53 L 100 10/31/18 06:00 10/31/18 06:00 10/31/18 06:00 10/31/18 06:00 10/31/18 06:00 Laboratory Results - last 24 hr 10/30/18 08:28: Specimen Source L brachial, O2 % Room air, ABG pH 7.18 L*, ABG pCO2 44.6, ABG pO2 79.3 L, ABG HCO3 16.2 L, ABG Total CO2 17.6 L, ABG O2 Saturation 95, ABG Base Excess -12.1 L 10/30/18 11:05: POC Glucose 169 H 10/30/18 16:46: POC Glucose 163 H 10/30/18 20:33: POC Glucose 168 H 10/31/18 05:09: POC Glucose 122 H 10/31/18 05:25: WBC 8.4, RBC 3.50 L, Hgb 10.1 L, Hct 32.1 L, MCV 91.7, MCH 29.0, MCHC 31.6 L, RDW 15.6, Plt Count 263, MPV 7.2 L, Neut % (Auto) 70.9, Lymph % (Auto) 18.9, Polk % (Auto) 8.9, Eos % (Auto) 1.0, Baso % (Auto) 0.3, Neut # (Auto) 5.9, Lymph # (Auto) 1.6, Polk # (Auto) 0.7, Eos # (Auto) 0.1, Baso # (Auto) 0.0 10/31/18 05:25: Sodium 118 L, Potassium 4.9, Chloride 90 L, Carbon Dioxide 19 L, Anion Gap 13.9, BUN 43 H, Creatinine 1.26, Estimated Creat Clear 88, Estimated GFR 60, Est GFR ( Amer) 72, Glucose 103 D, Calcium 7.8 L I & O for Last 24 hours: Intake & Output 10/28/18 10/29/18 10/30/18 10/31/18 11:59 11:59 11:59 11:59 Intake Total 2990 / 2990 5725 / 5725 Output Total 250 / 250 5025 / 5025 Balance 2740 / 2740 700 / 700 Weight 202 lb 202 lb Radiology Reports for the Last 24 Hours: Abd/pelvic CT The findings are consistent with enterocolitis. Cholelithiasis - Constitutional Comments: lethargic - *Routine Respiratory Exam Present: CTA bilaterally - *Routine Cardiovascular Exam Present: RRR - *Routine Abdominal Exam Present: soft, normoactive bowel sounds. Absent: tenderness - *Routine Extremities Exam Absent: cyanosis, clubbing, edema - *Routine Neurological Exam Present: oriented X3 Assessment and Plan (1) MEHREEN (acute kidney injury) Current visit: Yes Status: Acute Category: Medical Code(s): N17.9 - Acute kidney failure, unspecified (2) Elevated erythrocyte sedimentation rate Current visit: Yes Status: Acute Category: Medical Code(s): R70.0 - Elevated erythrocyte sedimentation rate (3) Enterocolitis Current visit: Yes Status: Acute Category: Medical Code(s): K52.9 - No ninfective gastroenteritis and colitis, unspecified (4) Hyperkalemia Current visit: Yes Status: Acute Category: Medical Code(s): E87.5 - Hyperkalemia (5) Hyponatremia Current visit: Yes Status: Acute Category: Medical Code(s): E87.1 - Hypo- osmolality and hyponatremia (6) CAD (coronary artery disease) Current visit: No Status: Chronic Category: Medical Code(s): I25.10 - Atherosclerotic heart disease of teller coronary artery without angina pectoris (7) HLD (hyperlipidemia) Current visit: No Status: Chronic Category: Medical Code(s): E78.5 - Hyperlipidemia, unspecified (8) HTN (hypertension) Current visit: No Status: Chronic Category: Medical Code(s): I10 - Essential (primary) hypertension (9) HONG (obstructive sleep apnea) Current visit: No Status: Chronic Category: Medical Code(s): G47.33 - Obstructive sleep apnea (adult) (pediatric) (10) SIRS (systemic inflammatory response syndrome) Current visit: Yes Status: Acute Category: Medical Code(s): R65.10 - Systemic inflammatory response syndrome (SIRS) of non-infectious origin without acute organ dysfunction (11) Metabolic acidosis Current visit: Yes Status: Acute Category: Medical Code(s): E87.2 - Acidosis (12) Occluded PICC line Current visit: Yes Status: Acute Category: Medical Code(s): T82.898A - Other specified complication of vascular prosthetic devices, implants and grafts, initial encounter - Assessment and plan all Dx Assessment and Plan for all problems:: Patient's renal function has improved slightly, however his sodium is lower today. He is awaiting a bed for transfer at . Will discuss further care with Dr. Hale. <Carlos Hale - Last Filed: 10/31/18 10:46> Internal Medicine - PN: Subj *Date: 10/31/18 *Time: 10:46 Exam Vital signs and Labs for Last 24 Hours: Temp Pulse Resp BP Pulse Ox 99.1 F 90 16 83/49 L 99 10/31/18 08:00 10/31/18 08:00 10/31/18 08:00 10/31/18 08:00 10/31/18 08:00 Laboratory Results - last 24 hr 10/30/18 11:05: POC Glucose 169 H 10/30/18 16:46: POC Glucose 163 H 10/30/18 20:33: POC Glucose 168 H 10/31/18 05:09: POC Glucose 122 H 10/31/18 05:25: WBC 8.4, RBC 3.50 L, Hgb 10.1 L, Hct 32.1 L, MCV 91.7, MCH 29.0, MCHC 31.6 L, RDW 15.6, Plt Count 263, MPV 7.2 L, Neut % (Auto) 70.9, Lymph % (Auto) 18.9, Polk % (Auto) 8.9, Eos % (Auto) 1.0, Baso % (Auto) 0.3, Neut # (Auto) 5.9, Lymph # (Auto) 1.6, Polk # (Auto) 0.7, Eos # (Auto) 0.1, Baso # (Auto) 0.0 10/31/18 05:25: Sodium 118 L, Potassium 4.9, Chloride 90 L, Carbon Dioxide 19 L, Anion Gap 13.9, BUN 43 H, Creatinine 1.26, Estimated Creat Clear 88, Estimated GFR 60, Est GFR ( Amer) 72, Glucose 103 D, Calcium 7.8 L I & O for Last 24 hours: Intake & Output 10/28/18 10/29/18 10/30/18 10/31/18 23:59 23:59 23:59 23:59 Intake Total 6081 / 6081 2874 / 2874 Output Total 2975 / 2975 2300 / 2300 Balance 3106 / 3106 574 / 574 Weight 202 lb 202 lb Assessment and Plan (1) MEHREEN (acute kidney injury) Current visit: Yes Status: Acute Category: Medical Code(s): N17.9 - Acute kidney failure, unspecified (2) Elevated erythrocyte sedimentation rate Current visit: Yes Status: Acute Category: Medical Code(s): R70.0 - Elevated erythrocyte sedimentation rate (3) Enterocolitis Current visit: Yes Status: Acute Category: Medical Code(s): K52.9 - Noninfective gastroenteritis and colitis, unspecified (4) Hyperkalemia Current visit: Yes Status: Acute Category: Medical Code(s): E87.5 - Hyperkalemia (5) Hyponatremia Current visit: Yes Status: Acute Category: Medical Code(s): E87.1 - Hypo- osmolality and hyponatremia (6) CAD (coronary artery disease) Current visit: No Status: Chronic Qualifiers: Category: Medical Code(s): I25.10 - Atherosclerotic heart disease of teller coronary artery without angina pectoris (7) HLD (hyperlipidemia) Current visit: No Status: Chronic Qualifiers: Category: Medical Code(s): E78.5 - Hyperlipidemia, unspecified (8) HTN (hypertension) Current visit: No Status: Chronic Qualifiers: Category: Medical Code(s): I10 - Essential (primary) hypertension (9) HONG (obstructive sleep apnea) Current visit: No Status: Chronic Category: Medical Code(s): G47.33 - Obstructive sleep apnea (adult) (pediatric) (10) SIRS (systemic inflammatory response syndrome) Current visit: Yes Status: Acute Category: Medical Code(s): R65.10 - Systemic inflammatory response syndrome (SIRS) of non-infectious origin without acute organ dysfunction (11) Metabolic acidosis Current visit: Yes Status: Acute Category: Medical Code(s): E87.2 - Acidosis (12) Occluded PICC line Current visit: Yes Status: Acute Category: Medical Code(s): T82.898A - Other specified complication of vascular prosthetic devices, implants and grafts, initial encounter - Assessment and plan all Dx Assessment and Plan for all problems:: Saw patient, agree with above note. Will give some 3% saline today
--- NOTE | 2018-10-31 10:56 | Progress Note ---
Internal Medicine - PN: Subj *Date: 10/31/18 *Time: 10:54 Exam Vital signs and Labs for Last 24 Hours: Temp Pulse Resp BP Pulse Ox 99.1 F 90 16 83/49 L 99 10/31/18 08:00 10/31/18 08:00 10/31/18 08:00 10/31/18 08:00 10/31/18 08:00 Laboratory Results - last 24 hr 10/30/18 11:05: POC Glucose 169 H 10/30/18 16:46: POC Glucose 163 H 10/30/18 20:33: POC Glucose 168 H 10/31/18 05:09: POC Glucose 122 H 10/31/18 05:25: WBC 8.4, RBC 3.50 L, Hgb 10.1 L, Hct 32.1 L, MCV 91.7, MCH 29.0, MCHC 31.6 L, RDW 15.6, Plt Count 263, MPV 7.2 L, Neut % (Auto) 70.9, Lymph % (Auto) 18.9, O'Brien % (Auto) 8.9, Eos % (Auto) 1.0, Baso % (Auto) 0.3, Neut # (Auto) 5.9, Lymph # (Auto) 1.6, O'Brien # (Auto) 0.7, Eos # (Auto) 0.1, Baso # (Auto) 0.0 10/31/18 05:25: Sodium 118 L, Potassium 4.9, Chloride 90 L, Carbon Dioxide 19 L, Anion Gap 13.9, BUN 43 H, Creatinine 1.26, Estimated Creat Clear 88, Estimated GFR 60, Est GFR ( Amer) 72, Glucose 103 D, Calcium 7.8 L I & O for Last 24 hours: Intake & Output 10/28/18 10/29/18 10/30/18 10/31/18 23:59 23:59 23:59 23:59 Intake Total 6081 / 6081 2874 / 2874 Output Total 2975 / 2975 2300 / 2300 Balance 3106 / 3106 574 / 574 Weight 202 lb 202 lb Assessment and Plan (1) MEHREEN (acute kidney injury) Current visit: Yes Status: Acute Category: Medical Code(s): N17.9 - Acute kidney failure, unspecified (2) Elevated erythrocyte sedimentation rate Current visit: Yes Status: Acute Category: Medical Code(s): R70.0 - Elevated erythrocyte sedimentation rate (3) Enterocolitis Current visit: Yes Status: Acute Category: Medical Code(s): K52.9 - Noninfective gastroenteritis and colitis, unspecified (4) Hyperkalemia Current visit: Yes Status: Acute Category: Medical Code(s): E87.5 - Hyperkalemia (5) Hyponatremia Current visit: Yes Status: Acute Category: Medical Code(s): E87.1 - Hypo- osmolality and hyponatremia (6) CAD (coronary artery disease) Current visit: No Status: Chronic Qualifiers: Category: Medical Code(s): I25.10 - Atherosclerotic heart disease of lummi coronary artery without angina pectoris (7) HLD (hyperlipidemia) Current visit: No Status: Chronic Qualifiers: Category: Medical Code(s): E78.5 - Hyperlipidemia, unspecified (8) HTN (hypertension) Current visit: No Status: Chronic Qualifiers: Category: Medical Code(s): I10 - Essential (primary) hypertension (9) HONG (obstructive sleep apnea) Current visit: No Status: Chronic Category: Medical Code(s): G47.33 - Obstructive sleep apnea (adult) (pediatric) (10) SIRS (systemic inflammatory response syndrome) Current visit: Yes Status: Acute Category: Medical Code(s): R65.10 - Systemic inflammatory response syndrome (SIRS) of non-infectious origin without acute organ dysfunction (11) Metabolic acidosis Current visit: Yes Status: Acute Category: Medical Code(s): E87.2 - Acidosis (12) Occluded PICC line Current visit: Yes Status: Acute Category: Medical Code(s): T82.898A - Other specified complication of vascular prosthetic devices, implants and grafts, initial encounter (13) Severe sepsis Current visit: Yes Status: Acute Category: Medical Code(s): A41.9 - Sepsis, unspecified organism; R65.20 - Severe sepsis without septic shock - Assessment and plan all Dx Assessment and Plan for all problems:: Pt still awaiting bed at
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
== END 2018-10-31 16:05 | disposition short-term general hospital (02) | DRG 871 ==
LOC: ER 02:18 → 2ND 04:46
PROVIDERS: ADMIT Family Medicine; ATTEND Family Medicine
CPT/HCPCS: 36415; 74177; 80048; 80053; 81001; 82150; 82803; 82962; 83605; 83690; 85025; 85651; 86140; 87040; 87506; 93005; 96365; 96366; 96375; 99285; J2185; J2405; Q9967

== ENCOUNTER → 2019-02-05 11:45 | Outpatient (CLI) | payer MEDICARE, MEDICAID, SELFPAY ==
[2019-02-05 12:31] LABS: Basophils # 0.1 K/mm3 (0-0.2); Basophils % 0.8 % (0.1-2.0); Eosinophils # 0.6 K/mm3 (0.0-0.4); Eosinophils % 7.2 % (0.1-12.0); Hematocrit 36.7 % (42.0-52.0); Hemoglobin 11.6 g/dL (14.1-18.0); Lymphocytes % 24.4 % (10-50); Mean Corpuscular HGB Conc 31.5 g/dL (31.8-35.4); Mean Corpuscular Hemoglobin 29.6 pg (27.0-31.2); Mean Corpuscular Volume 93.9 fl (80-94); Mean Platelet Volume 7.9 fl (7.4-10.4); Monocytes # 0.4 K/mm3 (0.1-1.0); Monocytes % 5.3 % (1.7-9.3); Neutrophils % 62.4 % (37.0-80.0); Platelet Count 330 K/mm3 (142-424); Red Cell Distribution Width 16.5 % (11.5-17.5)
[2019-02-05 12:41] LABS: Alanine Aminotransferase 64 U/L (12-78); Albumin Level 2.6 gm/dL (3.4-5.0); Albumin/Globulin Ratio 0.6 (1.1-1.8); Alkaline Phosphatase 241 U/L (46-116); Anion Gap 10.7 mEq/L (5-15); Aspartate Amino Transferase 38 U/L (15-37); Bilirubin,Total 0.3 mg/dL (0.2-1.0); Blood Urea Nitrogen 17 mg/dL (7-18); Calcium 10.7 mg/dL (8.5-10.1); Carbon Dioxide 28 mmol/L (21.0-32.0); Chloride 106 mmol/L (98-107); Creatinine,Serum 0.86 mg/dL (0.70-1.30); Estimated Glomerular Filt Rate 93 ml/min (>60); GFR (African American) 112 ML/MIN (>60); Globulin 4.5 gm/dl (1.3-3.2); Glucose 165 mg/dL (74-106); Potassium 3.7 mmoL/L (3.5-5.1); Sodium 141 mmol/L (136-145); Total Protein,Serum 7.1 gm/dL (6.4-8.2)
[2019-02-05 14:30] LABS: Microscopic, Urine URINE MICROSCOPIC (MICROSCOPIC)
[2019-02-05 15:41] LABS: Appearance,Urine CLEAR (Clear); Bilirubin,Urine Negative (Negative); Blood, Urine 1+ (Negative); Color,Urine YELLOW (Yellow); Glucose,Urine (UA) Negative (Negative); Ketones,Urine Negative (Negative); Leukocyte Esterase,Urine 2+ (Negative); Nitrate,Urine Negative (Negative); Protein,Urine 1+ (Negative); Urobilinogen,Urine 0.2 EU/dl (0.2)
[2019-02-05 16:11] LABS: Bacteria,Urine Trace /lpf
[2019-02-18 16:27] LABS: Baclofen (Lioresal) <20 ng/mL (100 - 400)
== END ==
PROVIDERS: Internal Medicine Infectious Disease; Visit Provider Family Medicine
DX: L89.314 Pressure ulcer of right buttock, stage 4 (principal); L89.324 Pressure ulcer of left buttock, stage 4; G82.52 Quadriplegia, C1-C4 incomplete; I25.10 Atherosclerotic heart disease of native coronary artery without angina pectoris; N31.9 Neuromuscular dysfunction of bladder, unspecified; E11.622 Type 2 diabetes mellitus with other skin ulcer; Z79.84 Long term (current) use of oral hypoglycemic drugs; Z93.0 Tracheostomy status; Z95.5 Presence of coronary angioplasty implant and graft; Z46.6 Encounter for fitting and adjustment of urinary device
CPT/HCPCS: 80053; 81001; 85025; 87040; 87086

== ENCOUNTER → 2019-03-31 16:21 | Outpatient (CLI) | payer MEDICARE, MEDICAID, SELFPAY ==
[2019-03-31 16:35] LABS: Basophils % 0.5 % (0.1-2.0); Eosinophils # 0.2 K/mm3 (0.0-0.4); Eosinophils % 4.2 % (0.1-12.0); Hemoglobin 8.6 g/dL (14.1-18.0); Lymphocytes # 0.9 K/mm3 (0.7-4.5); Lymphocytes % 16.7 % (10-50); Mean Corpuscular HGB Conc 29.9 g/dL (31.8-35.4); Mean Corpuscular Hemoglobin 27.1 pg (27.0-31.2); Mean Corpuscular Volume 90.7 fl (80-94); Mean Platelet Volume 8.5 fl (7.4-10.4); Monocytes # 0.2 K/mm3 (0.1-1.0); Monocytes % 4.4 % (1.7-9.3); Neutrophils # 3.8 K/mm3 (1.8-7.8); Neutrophils % 74.2 % (37.0-80.0); Platelet Count 106 K/mm3 (142-424); Red Blood Count 3.16 M/mm3 (4.60-6.20); Red Cell Distribution Width 15.4 % (11.5-17.5); White Blood Count 5.1 K/mm3 (4.8-10.8)
[2019-03-31 16:41] LABS: Hematocrit 28.9 % (42.0-52.0)
[2019-03-31 16:43] LABS: Alanine Aminotransferase 6 U/L (12-78); Albumin Level 1.9 gm/dL (3.4-5.0); Albumin/Globulin Ratio 0.5 (1.1-1.8); Alkaline Phosphatase 80 U/L (46-116); Anion Gap 11.1 mEq/L (5-15); Aspartate Amino Transferase 4 U/L (15-37); Bilirubin,Total 0.1 mg/dL (0.2-1.0); Blood Urea Nitrogen 18 mg/dL (7-18); C-Reactive Protein 1.3 mg/dL (0.0-0.9); Calcium 8.5 mg/dL (8.5-10.1); Carbon Dioxide 28 mmol/L (21.0-32.0); Chloride 105 mmol/L (98-107); Creatinine,Serum 0.78 mg/dL (0.70-1.30); Estimated Glomerular Filt Rate 104 ml/min (>60); GFR (African American) 126 ML/MIN (>60); Globulin 3.7 gm/dl (1.3-3.2); Glucose 217 mg/dL (74-106); Potassium 4.1 mmoL/L (3.5-5.1); Sodium 140 mmol/L (136-145); Total Protein,Serum 5.6 gm/dL (6.4-8.2)
== END ==
PROVIDERS: Visit Provider Internal Medicine Infectious Disease
DX: L89.310 Pressure ulcer of right buttock, unstageable (principal); L89.320 Pressure ulcer of left buttock, unstageable; B96.1 Klebsiella pneumoniae [K. pneumoniae] as the cause of diseases classified elsewhere; N31.9 Neuromuscular dysfunction of bladder, unspecified; Z46.6 Encounter for fitting and adjustment of urinary device
CPT/HCPCS: 80053; 85025; 86140

== ENCOUNTER → 2019-04-03 17:03 | Outpatient (CLI) | payer MEDICARE, MEDICAID, SELFPAY ==
[2019-04-03 17:10] LABS: Eosinophils # 0.2 K/mm3 (0.0-0.4); Mean Corpuscular Hemoglobin 27.7 pg (27.0-31.2); Red Cell Distribution Width 15.4 % (11.5-17.5)
[2019-04-03 17:23] LABS: Basophils % 0.6 % (0.1-2.0); Eosinophils % 2.5 % (0.1-12.0); Hematocrit 30.1 % (42.0-52.0); Hemoglobin 9.2 g/dL (14.1-18.0); Mean Corpuscular HGB Conc 30.5 g/dL (31.8-35.4); Mean Corpuscular Volume 90.9 fl (80-94); Mean Platelet Volume 9.4 fl (7.4-10.4); Monocytes # 0.2 K/mm3 (0.1-1.0); Monocytes % 3.4 % (1.7-9.3); Neutrophils # 4.5 K/mm3 (1.8-7.8); Neutrophils % 76.6 % (37.0-80.0); Platelet Count 90 K/mm3 (142-424); Red Blood Count 3.31 M/mm3 (4.60-6.20); White Blood Count 5.9 K/mm3 (4.8-10.8)
== END ==
PROVIDERS: Visit Provider Internal Medicine Infectious Disease
DX: L89.310 Pressure ulcer of right buttock, unstageable (principal); B96.1 Klebsiella pneumoniae [K. pneumoniae] as the cause of diseases classified elsewhere
CPT/HCPCS: 85025

== ENCOUNTER → 2019-04-07 15:02 | Outpatient (CLI) | payer MEDICARE, MEDICAID, SELFPAY ==
[2019-04-07 15:12] LABS: Adenovirus F 40/41, stool Not Detected (NotDetected); Astrovirus Not Detected (NotDetected); Campylobacter Not Detected (NotDetected); Cryptosporidium Not Detected (NotDetected); Cyclospora Cayetanesis Not Detected (NotDetected); Entamoeba histolytica Not Detected (NotDetected); Enteroaggregative E coli Not Detected (NotDetected); Enteropathogenic E coli Not Detected (NotDetected); Enterotoxigenic E coli Not Detected (NotDetected); Giardia lamblia Not Detected (NotDetected); Norovirus Not Detected (NotDetected); Plesimonas Shigalloides, PCR Not Detected (NotDetected); Rotavirus A Not Detected (NotDetected); Salmonella, PCR Not Detected (NotDetected); Sapovirus Not Detected (NotDetected); Shiga-like toxin E coli Not Detected (NotDetected); Shigella Enterovasive E coli Not Detected (NotDetected); Vibrio Cholerae Not Detected (NotDetected); Vibrio, PCR Not Detected (NotDetected); Yersinia Entercolitica, PCR Not Detected (NotDetected)
[2019-04-07 15:25] LABS: Basophils % 0.6 % (0.1-2.0); Eosinophils # 0.2 K/mm3 (0.0-0.4); Eosinophils % 5.2 % (0.1-12.0); Hemoglobin 8.6 g/dL (14.1-18.0); Lymphocytes # 0.9 K/mm3 (0.7-4.5); Lymphocytes % 24.4 % (10-50); Mean Corpuscular HGB Conc 30.7 g/dL (31.8-35.4); Mean Corpuscular Hemoglobin 27.6 pg (27.0-31.2); Mean Corpuscular Volume 90.1 fl (80-94); Mean Platelet Volume 10.3 fl (7.4-10.4); Monocytes # 0.1 K/mm3 (0.1-1.0); Monocytes % 3.1 % (1.7-9.3); Neutrophils # 2.6 K/mm3 (1.8-7.8); Neutrophils % 66.7 % (37.0-80.0); Platelet Count 65 K/mm3 (142-424); Red Blood Count 3.11 M/mm3 (4.60-6.20); Red Cell Distribution Width 15.4 % (11.5-17.5); White Blood Count 3.9 K/mm3 (4.8-10.8)
[2019-04-07 15:31] LABS: Alanine Aminotransferase 5 U/L (12-78); Albumin Level 2.1 gm/dL (3.4-5.0); Albumin/Globulin Ratio 0.6 (1.1-1.8); Alkaline Phosphatase 70 U/L (46-116); Aspartate Amino Transferase 6 U/L (15-37); Bilirubin,Total 0.1 mg/dL (0.2-1.0); Blood Urea Nitrogen 21 mg/dL (7-18); C-Reactive Protein 1.7 mg/dL (0.0-0.9); Calcium 8.9 mg/dL (8.5-10.1); Carbon Dioxide 25 mmol/L (21.0-32.0); Chloride 106 mmol/L (98-107); Creatinine,Serum 0.81 mg/dL (0.70-1.30); Estimated Glomerular Filt Rate 99 ml/min (>60); GFR (African American) 120 ML/MIN (>60); Globulin 3.7 gm/dl (1.3-3.2); Glucose 160 mg/dL (74-106); Sodium 141 mmol/L (136-145); Total Protein,Serum 5.8 gm/dL (6.4-8.2)
[2019-04-07 19:31] LABS: Clostridium Difficile A/B, PCR Detected (NotDetected)
== END ==
PROVIDERS: Visit Provider Internal Medicine Infectious Disease
DX: L89.320 Pressure ulcer of left buttock, unstageable (principal); L89.310 Pressure ulcer of right buttock, unstageable; M86.18 Other acute osteomyelitis, other site; B96.1 Klebsiella pneumoniae [K. pneumoniae] as the cause of diseases classified elsewhere; A04.72 Enterocolitis due to Clostridium difficile, not specified as recurrent
CPT/HCPCS: 80053; 85025; 86140; 87506

== ENCOUNTER → 2019-04-10 17:10 | Outpatient (CLI) | payer MEDICARE, MEDICAID, SELFPAY ==
[2019-04-10 17:32] LABS: Alanine Aminotransferase 4 U/L (12-78); Albumin Level 2.3 gm/dL (3.4-5.0); Albumin/Globulin Ratio 0.6 (1.1-1.8); Alkaline Phosphatase 73 U/L (46-116); Anion Gap 15.2 mEq/L (5-15); Aspartate Amino Transferase 9 U/L (15-37); Bilirubin,Total 0.2 mg/dL (0.2-1.0); Blood Urea Nitrogen 24 mg/dL (7-18); C-Reactive Protein 1.1 mg/dL (0.0-0.9); Calcium 8.6 mg/dL (8.5-10.1); Carbon Dioxide 24 mmol/L (21.0-32.0); Chloride 107 mmol/L (98-107); Creatine Kinase 6 U/L (39-308); Creatinine,Serum 0.96 mg/dL (0.70-1.30); Estimated Glomerular Filt Rate 82 ml/min (>60); GFR (African American) 99 ML/MIN (>60); Globulin 3.6 gm/dl (1.3-3.2); Glucose 204 mg/dL (74-106); Potassium 4.2 mmoL/L (3.5-5.1); Sodium 142 mmol/L (136-145); Total Protein,Serum 5.9 gm/dL (6.4-8.2)
[2019-04-10 17:42] LABS: Basophils % 0.4 % (0.1-2.0); Eosinophils # 0.1 K/mm3 (0.0-0.4); Eosinophils % 3.8 % (0.1-12.0); Lymphocytes # 0.7 K/mm3 (0.7-4.5); Lymphocytes % 21.4 % (10-50); Mean Corpuscular HGB Conc 30.2 g/dL (31.8-35.4); Mean Corpuscular Hemoglobin 27.2 pg (27.0-31.2); Mean Corpuscular Volume 89.9 fl (80-94); Mean Platelet Volume 10.4 fl (7.4-10.4); Monocytes # 0.1 K/mm3 (0.1-1.0); Monocytes % 3.4 % (1.7-9.3); Neutrophils # 2.3 K/mm3 (1.8-7.8); Platelet Count 52 K/mm3 (142-424); Red Blood Count 3.06 M/mm3 (4.60-6.20); Red Cell Distribution Width 15.2 % (11.5-17.5); White Blood Count 3.3 K/mm3 (4.8-10.8)
[2019-04-10 17:51] LABS: Hematocrit 27.5 % (42.0-52.0); Hemoglobin 8.4 g/dL (14.1-18.0)
== END ==
PROVIDERS: Visit Provider Internal Medicine Infectious Disease
DX: M86.18 Other acute osteomyelitis, other site (principal); B96.1 Klebsiella pneumoniae [K. pneumoniae] as the cause of diseases classified elsewhere
CPT/HCPCS: 80053; 82550; 85025; 86140

== ENCOUNTER → 2019-04-14 14:20 | Outpatient (CLI) | payer MEDICARE, MEDICAID, SELFPAY ==
[2019-04-14 14:45] LABS: Basophils % 0.6 % (0.1-2.0); Eosinophils # 0.2 K/mm3 (0.0-0.4); Eosinophils % 3.5 % (0.1-12.0); Hematocrit 26.4 % (42.0-52.0); Lymphocytes # 1.4 K/mm3 (0.7-4.5); Lymphocytes % 28.9 % (10-50); Mean Corpuscular HGB Conc 30.5 g/dL (31.8-35.4); Mean Corpuscular Hemoglobin 27.5 pg (27.0-31.2); Mean Corpuscular Volume 90.2 fl (80-94); Mean Platelet Volume 11.8 fl (7.4-10.4); Monocytes # 0.4 K/mm3 (0.1-1.0); Monocytes % 7.8 % (1.7-9.3); Neutrophils # 2.8 K/mm3 (1.8-7.8); Neutrophils % 59.1 % (37.0-80.0); Platelet Count 60 K/mm3 (142-424); Red Blood Count 2.92 M/mm3 (4.60-6.20); Red Cell Distribution Width 15.3 % (11.5-17.5); White Blood Count 4.7 K/mm3 (4.8-10.8)
[2019-04-14 14:51] LABS: Anion Gap 15.8 mEq/L (5-15); Blood Urea Nitrogen 17 mg/dL (7-18); C-Reactive Protein 0.8 mg/dL (0.0-0.9); Calcium 7.8 mg/dL (8.5-10.1); Carbon Dioxide 21 mmol/L (21.0-32.0); Chloride 111 mmol/L (98-107); Creatine Kinase 24 U/L (39-308); Creatinine,Serum 0.67 mg/dL (0.70-1.30); Estimated Glomerular Filt Rate 124 ml/min (>60); GFR (African American) 150 ML/MIN (>60); Glucose 219 mg/dL (74-106); Potassium 3.8 mmoL/L (3.5-5.1); Sodium 144 mmol/L (136-145)
== END ==
PROVIDERS: Visit Provider Internal Medicine Infectious Disease
DX: M86.18 Other acute osteomyelitis, other site (principal); B96.1 Klebsiella pneumoniae [K. pneumoniae] as the cause of diseases classified elsewhere
CPT/HCPCS: 80048; 82550; 85025; 86140

== ENCOUNTER → 2019-04-16 14:29 | Outpatient (CLI) | payer MEDICARE, MEDICAID, SELFPAY ==
[2019-04-16 14:54] LABS: Basophils # 0.1 K/mm3 (0-0.2); Basophils % 0.9 % (0.1-2.0); Eosinophils # 0.3 K/mm3 (0.0-0.4); Eosinophils % 3.7 % (0.1-12.0); Hematocrit 29.8 % (42.0-52.0); Hemoglobin 9.3 g/dL (14.1-18.0); Lymphocytes # 1.7 K/mm3 (0.7-4.5); Lymphocytes % 19.3 % (10-50); Mean Corpuscular HGB Conc 31.1 g/dL (31.8-35.4); Mean Corpuscular Hemoglobin 26.9 pg (27.0-31.2); Mean Corpuscular Volume 86.5 fl (80-94); Monocytes # 0.7 K/mm3 (0.1-1.0); Monocytes % 7.9 % (1.7-9.3); Neutrophils # 6.1 K/mm3 (1.8-7.8); Neutrophils % 68.2 % (37.0-80.0); Platelet Count 171 K/mm3 (142-424); Red Blood Count 3.44 M/mm3 (4.60-6.20); Red Cell Distribution Width 15.7 % (11.5-17.5)
== END ==
PROVIDERS: Visit Provider Internal Medicine Infectious Disease
DX: M86.18 Other acute osteomyelitis, other site (principal); B96.1 Klebsiella pneumoniae [K. pneumoniae] as the cause of diseases classified elsewhere; L89.310 Pressure ulcer of right buttock, unstageable; L89.320 Pressure ulcer of left buttock, unstageable
CPT/HCPCS: 85025

== ENCOUNTER → 2019-04-18 16:52 | Outpatient (CLI) | payer MEDICARE, MEDICAID, SELFPAY ==
[2019-04-18 17:24] LABS: Basophils % 0.5 % (0.1-2.0); Eosinophils # 0.2 K/mm3 (0.0-0.4); Hematocrit 27.2 % (42.0-52.0); Hemoglobin 8.4 g/dL (14.1-18.0); Lymphocytes # 0.8 K/mm3 (0.7-4.5); Lymphocytes % 20.1 % (10-50); Mean Corpuscular HGB Conc 30.9 g/dL (31.8-35.4); Mean Corpuscular Hemoglobin 27.4 pg (27.0-31.2); Mean Corpuscular Volume 88.6 fl (80-94); Mean Platelet Volume 8.4 fl (7.4-10.4); Monocytes # 0.3 K/mm3 (0.1-1.0); Monocytes % 8.3 % (1.7-9.3); Neutrophils # 2.7 K/mm3 (1.8-7.8); Neutrophils % 67.1 % (37.0-80.0); Platelet Count 185 K/mm3 (142-424); Red Blood Count 3.07 M/mm3 (4.60-6.20); Red Cell Distribution Width 17.8 % (11.5-17.5)
[2019-04-18 17:40] LABS: Alanine Aminotransferase 10 U/L (12-78); Albumin Level 2.4 gm/dL (3.4-5.0); Albumin/Globulin Ratio 0.7 (1.1-1.8); Alkaline Phosphatase 88 U/L (46-116); Aspartate Amino Transferase 11 U/L (15-37); Bilirubin,Total 0.2 mg/dL (0.2-1.0); Blood Urea Nitrogen 13 mg/dL (7-18); C-Reactive Protein 1.3 mg/dL (0.0-0.9); Carbon Dioxide 28 mmol/L (21.0-32.0); Chloride 108 mmol/L (98-107); Creatine Kinase 7 U/L (39-308); Creatinine,Serum 0.79 mg/dL (0.70-1.30); Estimated Glomerular Filt Rate 102 ml/min (>60); GFR (African American) 124 ML/MIN (>60); Globulin 3.4 gm/dl (1.3-3.2); Glucose 138 mg/dL (74-106); Sodium 145 mmol/L (136-145); Total Protein,Serum 5.8 gm/dL (6.4-8.2)
== END ==
PROVIDERS: Visit Provider Internal Medicine Infectious Disease
DX: L89.310 Pressure ulcer of right buttock, unstageable (principal); L89.320 Pressure ulcer of left buttock, unstageable; B96.1 Klebsiella pneumoniae [K. pneumoniae] as the cause of diseases classified elsewhere
CPT/HCPCS: 80053; 82550; 85025; 86140

== ENCOUNTER → 2019-04-28 13:39 | Outpatient (CLI) | payer MEDICARE, MEDICAID, SELFPAY ==
[2019-04-28 14:18] LABS: Alanine Aminotransferase 12 U/L (12-78); Albumin Level 2.1 g/dL (3.4-5.0); Albumin/Globulin Ratio 0.6 (1.1-1.8); Alkaline Phosphatase 67 U/L (46-116); Anion Gap 12.8 mEq/L (5-15); Aspartate Amino Transferase 12 U/L (15-37); Bilirubin,Direct 0.1 mg/dL (0.0-0.2); Bilirubin,Total 0.2 mg/dL (0.2-1.0); Blood Urea Nitrogen 12 mg/dL (7-18); C-Reactive Protein 0.8 mg/dL (0.0-0.9); Calcium 8.5 mg/dL (8.5-10.1); Carbon Dioxide 28 mmol/L (21.0-32.0); Chloride 112 mmol/L (98-107); Creatine Kinase 10 U/L (39-308); Creatinine,Serum 0.76 mg/dL (0.70-1.30); Estimated Glomerular Filt Rate 107 ml/min (>60); GFR (African American) 129 ML/MIN (>60); Globulin 3.5 gm/dl (1.3-3.2); Glucose 148 mg/dL (74-106); Potassium 3.8 mmoL/L (3.5-5.1); Sodium 149 mmol/L (137-145); Total Protein,Serum 5.6 g/dL (6.4-8.2)
[2019-04-28 14:41] LABS: Basophils % 0.2 % (0.1-2.0); Eosinophils # 0.2 K/mm3 (0.0-0.4); Eosinophils % 3.8 % (0.1-12.0); Hematocrit 31.8 % (42.0-52.0); Hemoglobin 9.5 g/dL (14.1-18.0); Lymphocytes # 0.9 K/mm3 (0.7-4.5); Lymphocytes % 19.5 % (10-50); Mean Corpuscular HGB Conc 29.8 g/dL (31.8-35.4); Mean Corpuscular Hemoglobin 26.9 pg (27.0-31.2); Mean Corpuscular Volume 90.1 fl (80-94); Mean Platelet Volume 7.8 fl (7.4-10.4); Monocytes # 0.3 K/mm3 (0.1-1.0); Monocytes % 5.8 % (1.7-9.3); Neutrophils # 3.4 K/mm3 (1.8-7.8); Neutrophils % 70.6 % (37.0-80.0); Platelet Count 224 K/mm3 (142-424); Red Blood Count 3.53 M/mm3 (4.60-6.20); Red Cell Distribution Width 18.9 % (11.5-17.5); White Blood Count 4.8 K/mm3 (4.8-10.8)
== END ==
PROVIDERS: Visit Provider Internal Medicine Infectious Disease
DX: M86.18 Other acute osteomyelitis, other site (principal); L89.320 Pressure ulcer of left buttock, unstageable; L89.310 Pressure ulcer of right buttock, unstageable
CPT/HCPCS: 80053; 82248; 82550; 85025; 86140

== ENCOUNTER → 2019-07-23 17:13 | Outpatient (CLI) | payer MEDICARE, MEDICAID, SELFPAY ==
[2019-07-23 17:19] LABS: Microscopic, Urine URINE MICROSCOPIC (MICROSCOPIC)
[2019-07-23 19:53] LABS: Appearance,Urine CLEAR (Clear); Bilirubin,Urine Negative (Negative); Blood, Urine 1+ (Negative); Color,Urine YELLOW (Yellow); Glucose,Urine (UA) Negative (Negative); Ketones,Urine Negative (Negative); Leukocyte Esterase,Urine 2+ (Negative); Nitrate,Urine Negative (Negative); PH,Urine 7.5 (5.0-8.5); Protein,Urine 1+ (Negative); Urobilinogen,Urine 0.2 EU/dl (0.2)
[2019-07-23 20:48] LABS: RBC,Urine Occasional #/hpf (0-3); Squamous Epithelial Cell,Urine Occasional #/hpf (0-5)
[2019-07-23 20:49] LABS: Bacteria,Urine Trace /lpf; Hyaline Casts,Urine Occasional #/lpf (0)
== END ==
PROVIDERS: Visit Provider Family Medicine
DX: L89.314 Pressure ulcer of right buttock, stage 4 (principal); L89.324 Pressure ulcer of left buttock, stage 4; R82.90 Unspecified abnormal findings in urine
CPT/HCPCS: 81001; 87070; 87077; 87086; 87088; 87186; 87205

== ENCOUNTER → 2019-08-01 09:14 | Outpatient (CLI) | payer MEDICARE, MEDICAID, SELFPAY ==
[2019-08-01 10:36] LABS: Blood Urea Nitrogen 29 mg/dl (9-20); Estimated Glomerular Filt Rate 88 ml/min (>60); GFR (African American) 106 ML/MIN (>60)
== END ==
PROVIDERS: Visit Provider Physician Assistant
DX: R19.02 Left upper quadrant abdominal swelling, mass and lump (principal)
CPT/HCPCS: 36415; 82565; 84520

== ENCOUNTER → 2019-08-05 09:27 | Outpatient (CLI) | payer MEDICARE, MEDICAID, SELFPAY ==
--- NOTE | 2019-08-05 09:30 | CT_ITS ---
PROCEDURE: CT ABDOMEN PELVIS W CON CLINICAL INDICATION: ABD MASS Left-sided abdominal mass, fluid collection COMPARISON: CT ABDOMEN PELVIS W CON from 10/30/2018 TECHNIQUE: IV Contrast: 75ML OPTIRAY 350 Oral Contrast none Axial images obtained with sagittal and coronal reformats. All CT scans at the facility use one or more dose reduction, viz: automated exposure control, ma/kV adjustment per patient size (including targeted exams where dose is matched to indication, i.e. head), or iterative reconstruction technique. FINDINGS: LOWER THORAX: There are small bilateral pleural effusions right slightly larger than left with bibasilar atelectatic changes. Coronary artery calcifications are present. ABDOMEN & PELVIS: There are multiple posterior layering gallstones. The liver, spleen, adrenal glands, and pancreas have an unremarkable appearance. There is a small right peripancreatic lymph node at 1.5 cm anterior to the portal vein an additional small periportal lymph node posterior to the portal vein is noted measuring 1.7 cm with an additional 3.6 x 1.8 cm node posterior to the portal vein not significantly changed. There are nonobstructing right renal calculi measuring up to 8 mm in the lower pole. No hydronephrosis. No intestinal obstruction or free air. No evidence of appendicitis. The appendix is retrocecal. There is a small amount of fluid in the right pericolic gutter. There is a mild amount of retained colonic feces. A no evidence of diverticulitis. There is a Valverde catheter present. No pelvic mass or abnormal fluid collection. There is mild thickening of the urinary bladder. There is mild diffuse subcutaneous edema. An epidural stimulator device is present in the right lateral flank entering the thecal sac at the T12-L1 level. A BB is placed at the area of palpable concern. There is diffuse stranding of the subcutaneous fat at this region but no discrete mass or fluid collection. Cellulitis is a consideration. There are degenerative changes in the thoracic and lumbar spine with no acute bony anomaly evident. IMPRESSION: 1. Bilateral pleural effusions with bibasilar atelectasis 2. Cholelithiasis 3. Periportal adenopathy nonspecific 4. Constipation 5. There is mild diffuse stranding of the pelvic fat on both sides but is more prominent in the left lower lateral abdominal and lateral pelvic region corresponding to the area of palpable concern suggestive cellulitis. No focal fluid collection or mass is evident. 6. Right nephrolithiasis with possible cystitis Dictated by: Danilo Young MD 08/05/2019 17:05 Electronically signed by Danilo Young MD in [place] 08/05/2019 17:05
== END ==
PROVIDERS: PCP Family Medicine; Visit Provider Physician Assistant
DX: R19.02 Left upper quadrant abdominal swelling, mass and lump (principal)
CPT/HCPCS: 74177; Q9967

== ENCOUNTER → 2019-08-27 17:17 | Outpatient (CLI) | payer MEDICARE, MEDICAID, SELFPAY ==
[2019-08-27 17:21] LABS: Microscopic, Urine URINE MICROSCOPIC (MICROSCOPIC)
[2019-08-27 17:48] LABS: Basophils % 0.3 % (0.1-2.0); Eosinophils # 0.2 K/mm3 (0.0-0.4); Eosinophils % 1.5 % (0.1-12.0); Hematocrit 32.7 % (42.0-52.0); Hemoglobin 10.4 g/dL (14.1-18.0); Lymphocytes # 1.2 K/mm3 (0.7-4.5); Lymphocytes % 8.3 % (10-50); Mean Corpuscular HGB Conc 31.8 g/dL (31.8-35.4); Mean Corpuscular Hemoglobin 28.4 pg (27.0-31.2); Mean Corpuscular Volume 89.4 fl (80-94); Mean Platelet Volume 7.5 fl (7.4-10.4); Monocytes # 0.6 K/mm3 (0.1-1.0); Monocytes % 4.4 % (1.7-9.3); Neutrophils # 12.5 K/mm3 (1.8-7.8); Neutrophils % 85.6 % (37.0-80.0); Platelet Count 330 K/mm3 (142-424); Red Blood Count 3.66 M/mm3 (4.60-6.20); Red Cell Distribution Width 15.6 % (11.5-17.5); White Blood Count 14.6 K/mm3 (4.8-10.8)
[2019-08-27 17:57] LABS: MANUAL DIFFERENTIAL MANUAL DIFFERENTIAL (MANUAL DIFF)
[2019-08-27 17:58] LABS: Prothrombin Time 11.2 seconds (9.4-11.8)
[2019-08-27 17:59] LABS: Activated Partial Thrombo Time 24.9 seconds (23.6-34.0)
[2019-08-27 18:13] LABS: Appearance,Urine CLEAR (Clear); Bilirubin,Urine Negative (Negative); Blood, Urine 2+ (Negative); Color,Urine YELLOW (Yellow); Glucose,Urine (UA) Negative (Negative); Ketones,Urine Negative (Negative); Leukocyte Esterase,Urine 3+ (Negative); Nitrate,Urine Negative (Negative); PH,Urine 5.5 (5.0-8.5); Protein,Urine 2+ (Negative); Urobilinogen,Urine 0.2 EU/dl (0.2)
[2019-08-27 19:00] LABS: WBC,Urine TNTC #/hpf (0-3)
[2019-08-27 19:01] LABS: Bacteria,Urine Trace /lpf; RBC,Urine 20-50 #/hpf (0-3)
[2019-08-27 20:43] LABS: Eosinophils % 1 % (0-3); Lymphocytes % 8 % (10-50); Monocytes % 2 % (2-9); Neutrophils % 89 % (42-76); Total Cells Counted 100
[2019-08-27 20:44] LABS: Platelet Estimate Normal; Stomatocytes 1+
[2019-08-27 20:59] LABS: Chloride 102 mmol/L (98-107); Potassium 5.3 mmoL/L (3.5-5.1); Sodium 139 mmol/L (136-145)
[2019-08-27 21:02] LABS: Anion Gap 12.3 mEq/L (5-15); Blood Urea Nitrogen 33 mg/dl (9-20); Carbon Dioxide 30 mmol/L (22.0-30.0); Estimated Glomerular Filt Rate 70 ml/min (>60); GFR (African American) 84 ML/MIN (>60)
[2019-08-27 21:03] LABS: Calcium 9.1 mg/dl (8.4-10.2); Glucose 292 mg/dl (74-100)
== END ==
PROVIDERS: Visit Provider Family Medicine
DX: L89.314 Pressure ulcer of right buttock, stage 4 (principal); Z46.6 Encounter for fitting and adjustment of urinary device; Z79.899 Other long term (current) drug therapy; Z51.81 Encounter for therapeutic drug level monitoring
CPT/HCPCS: 80048; 81001; 85007; 85025; 85610; 85730; 87086; 87088; 87186

== ENCOUNTER → 2019-09-15 12:42 | Outpatient (CLI) | payer MEDICARE, MEDICAID, SELFPAY | PROVIDERS: PCP Family Medicine; Visit Provider Nurse Practitioner Family | DX: G47.33 Obstructive sleep apnea (adult) (pediatric) (principal); Z93.0 Tracheostomy status | CPT/HCPCS: 94762 ==

== ENCOUNTER → 2019-09-24 14:03 | Outpatient (CLI) | payer MEDICARE, MEDICAID, SELFPAY ==
--- NOTE | 2019-09-24 14:12 | XR_ITS ---
PROCEDURE: XR SHOULDER LT MIN 2V CLINICAL INDICATION: L ANTERIOR SHOULDER PAIN The COMPARISON: None FINDINGS: There are osteoarthritic changes of the acromioclavicular joint. There is severe subacromial stenosis. Supraspinatus tendon tear is suspected with this degree of subacromial stenosis. No fracture or dislocation. There are old left-sided rib fractures. IMPRESSION: Osteoarthritic change of the AC joint with severe subacromial stenosis and high-riding humeral head suggesting supraspinatus tendon tear which could be confirmed with MRI if clinically desired Dictated by: Danilo Young MD 09/24/2019 15:21 Electronically signed by Danilo Young MD in [facility] 09/24/2019 15:21
== END ==
PROVIDERS: PCP Family Medicine; Visit Provider Physician Assistant
DX: M25.512 Pain in left shoulder (principal)
CPT/HCPCS: 73030

== ENCOUNTER → 2019-09-27 11:38 | Outpatient (CLI) | payer MEDICARE, MEDICAID, SELFPAY ==
[2019-09-27 11:41] LABS: Microscopic, Urine URINE MICROSCOPIC (MICROSCOPIC)
[2019-09-27 12:03] LABS: Appearance,Urine CLOUDY (Clear); Bilirubin,Urine Negative (Negative); Blood, Urine 1+ (Negative); Color,Urine YELLOW (Yellow); Glucose,Urine (UA) 3+ (Negative); Ketones,Urine Negative (Negative); Leukocyte Esterase,Urine 2+ (Negative); Nitrate,Urine Negative (Negative); Protein,Urine Negative (Negative); Specific Gravity, Urine 1.015 (1.005-1.030); Urobilinogen,Urine 0.2 EU/dl (0.2)
[2019-09-27 12:11] LABS: Bacteria,Urine 1+ /lpf; WBC,Urine 20-50 #/hpf (0-3)
[2019-09-27 12:12] LABS: Yeast,Urine 3+ /lpf
== END ==
PROVIDERS: Visit Provider Family Medicine
DX: N31.9 Neuromuscular dysfunction of bladder, unspecified (principal); Z46.6 Encounter for fitting and adjustment of urinary device; R82.90 Unspecified abnormal findings in urine
CPT/HCPCS: 81001; 87086

== ENCOUNTER → 2019-11-05 13:23 | Outpatient (CLI) | payer MEDICARE, MEDICAID, SELFPAY | DX: L89.314 Pressure ulcer of right buttock, stage 4 (principal); L89.324 Pressure ulcer of left buttock, stage 4 | CPT/HCPCS: 87070; 87077; 87186; 87205 ==

== ENCOUNTER → 2019-11-13 11:01 | Outpatient (CLI) | payer MEDICARE, MEDICAID, SELFPAY ==
--- NOTE | 2019-11-13 11:06 | XR_ITS ---
PROCEDURE: XR HIP RT 2-3V W/PELVIS CLINICAL INDICATION: RT HIP PAIN COMPARISON: No exams were available for comparison FINDINGS: No fracture or dislocation. No lytic or blastic change. No significant arthritic changes. There is generalized osteopenia. There is also generalized vascular calcification. IMPRESSION: Generalized osteopenia, no acute finding Dictated by: Danilo Young MD 11/13/2019 13:15 Danilo Young MD in [facility] 11/13/2019 13:15
== END ==
PROVIDERS: PCP Physician Assistant; Visit Provider Physician Assistant
DX: M25.551 Pain in right hip (principal)
CPT/HCPCS: 73502

== ENCOUNTER → 2020-03-22 10:31 | Outpatient (CLI) | payer MEDICARE, MEDICAID, SELFPAY ==
--- NOTE | 2020-03-22 10:36 | XR_ITS ---
PROCEDURE: XR SHOULDER RT MIN 2V CLINICAL INDICATION: RIGHT SHOULDER PAIN COMPARISON: CR XR SHOULDER LT MIN 2V from 09/24/2019 FINDINGS: Moderate osteoarthritic changes are present at the glenohumeral joint with high-riding humeral head which may be seen with rotator cuff tear. There is mild osteoarthritis of the acromioclavicular joint. Tracheostomy tube is present. Bony hardware noted in the lower cervical spine. Other findings:None. IMPRESSION: Severe osteoarthritis of the right shoulder Dictated by: Danilo Young MD 03/22/2020 16:35 Danilo Young MD in [facility] 03/22/2020 16:35
== END ==
PROVIDERS: PCP Physician Assistant; Visit Provider Physician Assistant
DX: M25.511 Pain in right shoulder (principal)
CPT/HCPCS: 73030

== ENCOUNTER → 2020-05-10 10:39 | Outpatient (CLI) | payer MEDICARE, MEDICAID, SELFPAY ==
[2020-05-10 10:44] LABS: Microscopic, Urine URINE MICROSCOPIC (MICROSCOPIC)
[2020-05-10 11:40] LABS: Appearance,Urine CLEAR (Clear); Bilirubin,Urine Negative (Negative); Blood, Urine 2+ (Negative); Color,Urine YELLOW (Yellow); Glucose,Urine (UA) Negative (Negative); Ketones,Urine Negative (Negative); Leukocyte Esterase,Urine 2+ (Negative); Nitrate,Urine Negative (Negative); PH,Urine 6.5 (5.0-8.5); Protein,Urine 1+ (Negative); Specific Gravity, Urine 1.025 (1.005-1.030); Urobilinogen,Urine 0.2 EU/dl (0.2)
[2020-05-10 11:49] LABS: Bacteria,Urine 1+ /lpf
== END ==
PROVIDERS: Visit Provider Nurse Practitioner Family
DX: R82.90 Unspecified abnormal findings in urine (principal)
CPT/HCPCS: 81001; 87086; 87088; 87186

== ENCOUNTER → 2020-06-23 15:08 | Outpatient (CLI) | payer MEDICARE, MEDICAID, SELFPAY ==
[2020-06-23 15:12] LABS: Microscopic, Urine URINE MICROSCOPIC (MICROSCOPIC)
[2020-06-23 15:31] LABS: Appearance,Urine CLOUDY (Clear); Bilirubin,Urine Negative (Negative); Blood, Urine 3+ (Negative); Color,Urine YELLOW (Yellow); Glucose,Urine (UA) Negative (Negative); Ketones,Urine Negative (Negative); Leukocyte Esterase,Urine 2+ (Negative); Nitrate,Urine Negative (Negative); Protein,Urine 1+ (Negative); Urobilinogen,Urine 0.2 EU/dl (0.2)
[2020-06-23 15:39] LABS: Bacteria,Urine 2+ /lpf; Yeast,Urine 3+ /lpf
== END ==
PROVIDERS: Visit Provider Family Medicine
DX: N39.0 Urinary tract infection, site not specified (principal)
CPT/HCPCS: 81001; 87086; 87088

== ENCOUNTER → 2020-07-14 16:33 | Outpatient (CLI) | payer MEDICARE, MEDICAID, SELFPAY ==
[2020-07-14 16:37] LABS: Microscopic, Urine URINE MICROSCOPIC (MICROSCOPIC)
[2020-07-14 16:47] LABS: Appearance,Urine TURBID (Clear); Bilirubin,Urine Negative (Negative); Blood, Urine 1+ (Negative); Color,Urine YELLOW (Yellow); Glucose,Urine (UA) Negative (Negative); Ketones,Urine Negative (Negative); Leukocyte Esterase,Urine 2+ (Negative); Nitrate,Urine Negative (Negative); Protein,Urine 1+ (Negative); Specific Gravity, Urine 1.025 (1.005-1.030); Urobilinogen,Urine 0.2 EU/dl (0.2)
[2020-07-14 16:48] LABS: Basophils # 0.1 K/mm3 (0-0.2); Basophils % 1.1 % (0.1-2.0); Eosinophils # 0.4 K/mm3 (0.0-0.4); Eosinophils % 5.2 % (0.1-12.0); Hematocrit 24.3 % (42.0-52.0); Lymphocytes # 1.6 K/mm3 (0.7-4.5); Mean Corpuscular HGB Conc 31.6 g/dL (31.8-35.4); Mean Corpuscular Hemoglobin 29.2 pg (27.0-31.2); Mean Corpuscular Volume 92.4 fl (80-94); Mean Platelet Volume 7.6 fl (7.4-10.4); Monocytes # 0.6 K/mm3 (0.1-1.0); Neutrophils # 4.5 K/mm3 (1.8-7.8); Neutrophils % 63.7 % (37.0-80.0); Platelet Count 382 K/mm3 (142-424); Red Blood Count 2.63 M/mm3 (4.60-6.20); Red Cell Distribution Width 15.9 % (11.5-17.5)
[2020-07-14 16:58] LABS: Bacteria,Urine 4+ /lpf; WBC,Urine TNTC #/hpf (0-3)
[2020-07-14 16:59] LABS: Chloride 107 mmol/L (98-107); Sodium 139 mmol/L (136-145)
[2020-07-14 17:00] LABS: Potassium 5.2 mmoL/L (3.5-5.1)
[2020-07-14 17:02] LABS: Alanine Aminotransferase 78 U/L (12-78); Alkaline Phosphatase 160 U/L (38-126); Anion Gap 16.2 mEq/L (5-15); Aspartate Amino Transferase 60 U/L (17-59); Bilirubin,Total 0.3 mg/dl (0.2-1.3); Blood Urea Nitrogen 46 mg/dl (9-20); Carbon Dioxide 21 mmol/L (22.0-30.0); Estimated Glomerular Filt Rate 42 ml/min (>60); GFR (African American) 51 ML/MIN (>60); Hemoglobin 7.7 g/dL (14.1-18.0)
[2020-07-14 17:03] LABS: Albumin Level 3.5 g/dl (3.5-5.0); Globulin 3.4 g/dL (1.3-3.2); Glucose 200 mg/dl (74-100); Total Protein,Serum 6.9 g/dl (6.3-8.2)
[2020-07-14 17:16] LABS: Calcium 12.1 mg/dl (8.4-10.2)
== END ==
PROVIDERS: Visit Provider Family Medicine
DX: N39.0 Urinary tract infection, site not specified (principal); B96.1 Klebsiella pneumoniae [K. pneumoniae] as the cause of diseases classified elsewhere
CPT/HCPCS: 80053; 81001; 85025; 87086; 87088; 87186

== ENCOUNTER → 2020-07-21 15:47 | Outpatient (CLI) | payer MEDICARE, MEDICAID, SELFPAY ==
[2020-07-21 15:51] LABS: Microscopic, Urine URINE MICROSCOPIC (MICROSCOPIC)
[2020-07-21 16:12] LABS: Basophils # 0.1 K/mm3 (0-0.2); Basophils % 0.7 % (0.1-2.0); Eosinophils # 0.5 K/mm3 (0.0-0.4); Eosinophils % 7.3 % (0.1-12.0); Hematocrit 25.1 % (42.0-52.0); Lymphocytes # 1.8 K/mm3 (0.7-4.5); Lymphocytes % 24.5 % (10-50); Mean Corpuscular HGB Conc 31.5 g/dL (31.8-35.4); Mean Corpuscular Hemoglobin 28.4 pg (27.0-31.2); Mean Corpuscular Volume 90.2 fl (80-94); Mean Platelet Volume 7.5 fl (7.4-10.4); Monocytes # 0.5 K/mm3 (0.1-1.0); Monocytes % 6.2 % (1.7-9.3); Neutrophils # 4.5 K/mm3 (1.8-7.8); Neutrophils % 61.3 % (37.0-80.0); Platelet Count 462 K/mm3 (142-424); Red Blood Count 2.79 M/mm3 (4.60-6.20); White Blood Count 7.3 K/mm3 (4.8-10.8)
[2020-07-21 16:18] LABS: Hemoglobin 7.9 g/dL (14.1-18.0)
[2020-07-21 16:19] LABS: Appearance,Urine CLOUDY (Clear); Bilirubin,Urine Negative (Negative); Blood, Urine 3+ (Negative); Color,Urine YELLOW (Yellow); Glucose,Urine (UA) Negative (Negative); Ketones,Urine Negative (Negative); Leukocyte Esterase,Urine 2+ (Negative); Nitrate,Urine Negative (Negative); PH,Urine 5.5 (5.0-8.5); Protein,Urine 1+ (Negative); Specific Gravity, Urine 1.025 (1.005-1.030); Urobilinogen,Urine 0.2 EU/dl (0.2)
[2020-07-21 16:36] LABS: Bacteria,Urine 3+ /lpf; WBC,Urine 50-100 #/hpf (0-3)
[2020-07-21 16:59] LABS: Anion Gap 13.1 mEq/L (5-15); Blood Urea Nitrogen 45 mg/dl (9-20); Carbon Dioxide 23 mmol/L (22.0-30.0); Chloride 112 mmol/L (98-107); Estimated Glomerular Filt Rate 37 ml/min (>60); GFR (African American) 45 ML/MIN (>60); Glucose 210 mg/dl (74-100); Potassium 5.1 mmoL/L (3.5-5.1); Sodium 143 mmol/L (136-145)
[2020-07-21 17:07] LABS: Calcium 13.2 mg/dl (8.4-10.2)
[2020-07-23 17:08] LABS: Calcium, Ionized 7.8 mg/dL (4.5-5.6)
== END ==
PROVIDERS: Visit Provider Family Medicine
DX: L89.44 Pressure ulcer of contiguous site of back, buttock and hip, stage 4 (principal); R82.90 Unspecified abnormal findings in urine
CPT/HCPCS: 80048; 80053; 81001; 82330; 85025; 87070; 87077; 87086; 87088; 87186; 87205

== ENCOUNTER → 2020-08-04 12:06 | Outpatient (CLI) | payer MEDICARE, MEDICAID, SELFPAY ==
[2020-08-04 12:20] LABS: Basophils % 0.6 % (0.1-2.0); Eosinophils # 0.5 K/mm3 (0.0-0.4); Eosinophils % 7.5 % (0.1-12.0); Hematocrit 26.4 % (42.0-52.0); Hemoglobin 8.2 g/dL (14.1-18.0); Lymphocytes # 1.7 K/mm3 (0.7-4.5); Lymphocytes % 23.9 % (10-50); Mean Corpuscular HGB Conc 31.3 g/dL (31.8-35.4); Mean Corpuscular Hemoglobin 29.1 pg (27.0-31.2); Monocytes # 0.5 K/mm3 (0.1-1.0); Monocytes % 7.1 % (1.7-9.3); Neutrophils # 4.3 K/mm3 (1.8-7.8); Neutrophils % 60.9 % (37.0-80.0); Platelet Count 282 K/mm3 (142-424); Red Blood Count 2.83 M/mm3 (4.60-6.20); White Blood Count 7.1 K/mm3 (4.8-10.8)
[2020-08-04 12:33] LABS: Chloride 112 mmol/L (98-107)
[2020-08-04 12:34] LABS: Sodium 141 mmol/L (136-145)
[2020-08-04 12:37] LABS: Blood Urea Nitrogen 59 mg/dl (9-20); Carbon Dioxide 19 mmol/L (22.0-30.0); Estimated Glomerular Filt Rate 27 ml/min (>60); GFR (African American) 33 ML/MIN (>60); Glucose 187 mg/dl (74-100)
[2020-08-04 12:44] LABS: Calcium 13.3 mg/dl (8.4-10.2)
== END ==
LOC: LAB 12:07 → LAB.DROPOF 12:08
PROVIDERS: Visit Provider Family Medicine
DX: I10 Essential (primary) hypertension (principal); E78.5 Hyperlipidemia, unspecified; E11.9 Type 2 diabetes mellitus without complications; Z79.4 Long term (current) use of insulin
CPT/HCPCS: 80048; 85025

== ENCOUNTER → 2020-08-06 13:03 | Outpatient (CLI) | payer MEDICARE, MEDICAID, SELFPAY ==
[2020-08-06 13:23] LABS: Chloride 110 mmol/L (98-107); Sodium 140 mmol/L (136-145)
[2020-08-06 13:24] LABS: Potassium 5.6 mmoL/L (3.5-5.1)
[2020-08-06 13:26] LABS: Blood Urea Nitrogen 58 mg/dl (9-20); Estimated Glomerular Filt Rate 30 ml/min (>60); GFR (African American) 36 ML/MIN (>60)
[2020-08-06 13:27] LABS: Anion Gap 14.6 mEq/L (5-15); Carbon Dioxide 21 mmol/L (22.0-30.0); Glucose 128 mg/dl (74-100)
[2020-08-06 13:34] LABS: Calcium 12.7 mg/dl (8.4-10.2)
== END ==
PROVIDERS: Visit Provider Family Medicine
DX: I25.10 Atherosclerotic heart disease of native coronary artery without angina pectoris (principal)
CPT/HCPCS: 80048

== ENCOUNTER → 2020-08-13 13:40 | Outpatient (CLI) | payer MEDICARE, MEDICAID, SELFPAY ==
[2020-08-13 14:51] LABS: Blood Urea Nitrogen 49 mg/dl (9-20); Carbon Dioxide 23 mmol/L (22.0-30.0); Chloride 111 mmol/L (98-107); Estimated Glomerular Filt Rate 37 ml/min (>60); GFR (African American) 45 ML/MIN (>60); Glucose 144 mg/dl (74-100); Sodium 142 mmol/L (136-145)
[2020-08-13 14:57] LABS: Calcium 12.7 mg/dl (8.4-10.2)
[2020-08-13 15:02] LABS: Intact Parathyroid Hormone 5.1 pg/mL (7.5-53.5)
== END ==
PROVIDERS: Visit Provider Family Medicine
DX: E83.52 Hypercalcemia (principal)
CPT/HCPCS: 80048; 83970

== ENCOUNTER → 2020-08-26 12:46 | Outpatient (CLI) | payer MEDICARE, MEDICAID, SELFPAY ==
[2020-08-26 13:00] LABS: Basophils # 0.1 K/mm3 (0-0.2); Basophils % 0.7 % (0.1-2.0); Eosinophils # 0.4 K/mm3 (0.0-0.4); Eosinophils % 5.3 % (0.1-12.0); Hematocrit 26.6 % (42.0-52.0); Hemoglobin 8.5 g/dL (14.1-18.0); Lymphocytes # 1.6 K/mm3 (0.7-4.5); Lymphocytes % 22.8 % (10-50); Mean Corpuscular HGB Conc 31.8 g/dL (31.8-35.4); Mean Corpuscular Hemoglobin 29.3 pg (27.0-31.2); Mean Platelet Volume 7.7 fl (7.4-10.4); Monocytes # 0.5 K/mm3 (0.1-1.0); Monocytes % 6.2 % (1.7-9.3); Neutrophils # 4.6 K/mm3 (1.8-7.8); Neutrophils % 64.9 % (37.0-80.0); Platelet Count 307 K/mm3 (142-424); White Blood Count 7.2 K/mm3 (4.8-10.8)
[2020-08-26 13:08] LABS: Chloride 110 mmol/L (98-107); Sodium 139 mmol/L (136-145)
[2020-08-26 13:09] LABS: Potassium 4.7 mmoL/L (3.5-5.1)
[2020-08-26 13:12] LABS: Anion Gap 13.7 mEq/L (5-15); Blood Urea Nitrogen 44 mg/dl (9-20); Calcium 11.2 mg/dl (8.4-10.2); Carbon Dioxide 20 mmol/L (22.0-30.0); Estimated Glomerular Filt Rate 42 ml/min (>60); GFR (African American) 51 ML/MIN (>60); Glucose 225 mg/dl (74-100)
== END ==
PROVIDERS: Visit Provider Family Medicine
DX: Z79.891 Long term (current) use of opiate analgesic (principal)
CPT/HCPCS: 80048; 85025

== ENCOUNTER → 2020-09-13 08:45 | Outpatient (CLI) | payer MEDICARE, MEDICAID, SELFPAY ==
[2020-09-13 09:21] LABS: Basophils # 0.1 K/mm3 (0-0.2); Basophils % 0.8 % (0.1-2.0); Eosinophils # 0.5 K/mm3 (0.0-0.4); Eosinophils % 5.8 % (0.1-12.0); Hematocrit 28.3 % (42.0-52.0); Hemoglobin 8.9 g/dL (14.1-18.0); Lymphocytes # 1.4 K/mm3 (0.7-4.5); Lymphocytes % 15.4 % (10-50); Mean Corpuscular HGB Conc 31.6 g/dL (31.8-35.4); Mean Corpuscular Hemoglobin 28.6 pg (27.0-31.2); Mean Corpuscular Volume 90.6 fl (80-94); Mean Platelet Volume 8.1 fl (7.4-10.4); Monocytes # 0.6 K/mm3 (0.1-1.0); Monocytes % 6.4 % (1.7-9.3); Neutrophils # 6.6 K/mm3 (1.8-7.8); Neutrophils % 71.5 % (37.0-80.0); Platelet Count 299 K/mm3 (142-424); Red Blood Count 3.13 M/mm3 (4.60-6.20); Red Cell Distribution Width 16.1 % (11.5-17.5); White Blood Count 9.2 K/mm3 (4.8-10.8)
[2020-09-13 10:17] LABS: Intact Parathyroid Hormone 5.7 pg/mL (7.5-53.5)
[2020-09-13 10:21] LABS: 25-OH Vitamin D, Total 57.4 ng/mL (30-100)
[2020-09-13 10:47] LABS: Albumin Level 3.7 g/dl (3.5-5.0); Anion Gap 15.9 mEq/L (5-15); Blood Urea Nitrogen 53 mg/dl (9-20); Calcium 11.9 mg/dl (8.4-10.2); Carbon Dioxide 18 mmol/L (22.0-30.0); Chloride 111 mmol/L (98-107); Estimated Glomerular Filt Rate 42 ml/min (>60); GFR (African American) 51 ML/MIN (>60); Glucose 153 mg/dl (74-100); Phosphorous 4.5 mg/dl (2.5-4.5); Potassium 4.9 mmoL/L (3.5-5.1); Sodium 140 mmol/L (136-145)
[2020-09-13 12:15] LABS: Microscopic, Urine URINE MICROSCOPIC (MICROSCOPIC)
[2020-09-13 13:40] LABS: Appearance,Urine CLEAR (Clear); Bilirubin,Urine Negative (Negative); Blood, Urine 1+ (Negative); Color,Urine YELLOW (Yellow); Glucose,Urine (UA) 1+ (Negative); Ketones,Urine Negative (Negative); Leukocyte Esterase,Urine 2+ (Negative); Nitrate,Urine Negative (Negative); PH,Urine 5.5 (5.0-8.5); Protein,Urine 1+ (Negative); Urobilinogen,Urine 0.2 EU/dl (0.2)
[2020-09-13 13:55] LABS: Creatinine,Urine Random 45 mg/dL (Not Estab.)
[2020-09-13 14:22] LABS: Bacteria,Urine 4+ /lpf; RBC,Urine TNTC #/hpf (0-3); Squamous Epithelial Cell,Urine Occasional #/hpf (0-5); WBC,Urine TNTC #/hpf (0-3)
== END ==
PROVIDERS: Visit Provider Internal Medicine Nephrology
DX: N18.4 Chronic kidney disease, stage 4 (severe) (principal); R82.90 Unspecified abnormal findings in urine
CPT/HCPCS: 36415; 80069; 81001; 82306; 82570; 83970; 84155; 85025; 87086; 87088; 87186

== ENCOUNTER → 2020-09-16 14:36 | Outpatient (POV) | payer MEDICARE, MEDICAID, SELFPAY | PROVIDERS: Visit Provider Internal Medicine Nephrology | DX: Z00.00 Encounter for general adult medical examination without abnormal findings (principal) ==

== ENCOUNTER → 2020-10-01 12:01 | Outpatient (CLI) | payer MEDICARE, MEDICAID, SELFPAY ==
[2020-10-01 12:17] LABS: Basophils # 0.1 K/mm3 (0-0.2); Basophils % 0.9 % (0.1-2.0); Eosinophils # 0.5 K/mm3 (0.0-0.4); Eosinophils % 4.7 % (0.1-12.0); Hemoglobin 8.6 g/dL (14.1-18.0); Mean Corpuscular HGB Conc 30.5 g/dL (31.8-35.4); Mean Corpuscular Hemoglobin 27.8 pg (27.0-31.2); Mean Corpuscular Volume 91.1 fl (80-94); Mean Platelet Volume 7.5 fl (7.4-10.4); Monocytes # 0.4 K/mm3 (0.1-1.0); Monocytes % 4.6 % (1.7-9.3); Neutrophils # 6.5 K/mm3 (1.8-7.8); Neutrophils % 68.8 % (37.0-80.0); Platelet Count 437 K/mm3 (142-424); Red Blood Count 3.08 M/mm3 (4.60-6.20); Red Cell Distribution Width 15.9 % (11.5-17.5); White Blood Count 9.5 K/mm3 (4.8-10.8)
[2020-10-01 12:29] LABS: Anion Gap 14.8 mEq/L (5-15); Blood Urea Nitrogen 48 mg/dl (9-20); Calcium 11.6 mg/dl (8.4-10.2); Carbon Dioxide 20 mmol/L (22.0-30.0); Chloride 111 mmol/L (98-107); Estimated Glomerular Filt Rate 42 ml/min (>60); GFR (African American) 51 ML/MIN (>60); Glucose 245 mg/dl (74-100); Potassium 4.8 mmoL/L (3.5-5.1); Sodium 141 mmol/L (136-145)
== END ==
PROVIDERS: Visit Provider Family Medicine
DX: I10 Essential (primary) hypertension (principal); E78.5 Hyperlipidemia, unspecified; E11.9 Type 2 diabetes mellitus without complications; Z79.4 Long term (current) use of insulin
CPT/HCPCS: 80048; 85025

== ENCOUNTER → 2020-10-08 11:12 | Outpatient (CLI) | payer MEDICARE, MEDICAID, SELFPAY ==
[2020-10-08 11:26] LABS: Basophils # 0.1 K/mm3 (0-0.2); Eosinophils # 0.5 K/mm3 (0.0-0.4); Eosinophils % 4.9 % (0.1-12.0); Hematocrit 29.6 % (42.0-52.0); Lymphocytes # 2.1 K/mm3 (0.7-4.5); Lymphocytes % 23.7 % (10-50); Mean Corpuscular HGB Conc 30.4 g/dL (31.8-35.4); Mean Corpuscular Hemoglobin 27.5 pg (27.0-31.2); Mean Corpuscular Volume 90.6 fl (80-94); Mean Platelet Volume 7.6 fl (7.4-10.4); Monocytes # 0.5 K/mm3 (0.1-1.0); Monocytes % 5.9 % (1.7-9.3); Neutrophils # 5.8 K/mm3 (1.8-7.8); Neutrophils % 64.5 % (37.0-80.0); Platelet Count 443 K/mm3 (142-424); Red Blood Count 3.27 M/mm3 (4.60-6.20); Red Cell Distribution Width 15.6 % (11.5-17.5)
[2020-10-08 11:37] LABS: Chloride 112 mmol/L (98-107); Potassium 4.9 mmoL/L (3.5-5.1); Sodium 145 mmol/L (136-145)
[2020-10-08 11:40] LABS: Anion Gap 14.9 mEq/L (5-15); Blood Urea Nitrogen 42 mg/dl (9-20); Calcium 11.9 mg/dl (8.4-10.2); Carbon Dioxide 23 mmol/L (22.0-30.0); Estimated Glomerular Filt Rate 42 ml/min (>60); GFR (African American) 51 ML/MIN (>60); Glucose 155 mg/dl (74-100)
== END ==
PROVIDERS: Visit Provider Family Medicine
DX: I10 Essential (primary) hypertension (principal); E78.5 Hyperlipidemia, unspecified; E11.9 Type 2 diabetes mellitus without complications; Z79.4 Long term (current) use of insulin
CPT/HCPCS: 80048; 85025

== ENCOUNTER → 2020-10-18 14:33 | Outpatient (CLI) | payer MEDICARE, MEDICAID, SELFPAY ==
[2020-10-18 14:46] LABS: Basophils # 0.2 K/mm3 (0-0.2); Basophils % 1.6 % (0.1-2.0); Eosinophils # 0.4 K/mm3 (0.0-0.4); Eosinophils % 3.7 % (0.1-12.0); Hematocrit 27.5 % (42.0-52.0); Hemoglobin 8.2 g/dL (14.1-18.0); Lymphocytes # 1.9 K/mm3 (0.7-4.5); Mean Corpuscular HGB Conc 29.8 g/dL (31.8-35.4); Mean Corpuscular Hemoglobin 27.2 pg (27.0-31.2); Mean Corpuscular Volume 91.3 fl (80-94); Monocytes # 0.7 K/mm3 (0.1-1.0); Monocytes % 6.4 % (1.7-9.3); Neutrophils % 69.2 % (37.0-80.0); Platelet Count 423 K/mm3 (142-424); Red Blood Count 3.01 M/mm3 (4.60-6.20); Red Cell Distribution Width 15.9 % (11.5-17.5); White Blood Count 10.2 K/mm3 (4.8-10.8)
[2020-10-18 14:56] LABS: Chloride 110 mmol/L (98-107); Sodium 141 mmol/L (136-145)
[2020-10-18 14:59] LABS: Blood Urea Nitrogen 50 mg/dl (9-20); Carbon Dioxide 24 mmol/L (22.0-30.0); Estimated Glomerular Filt Rate 39 ml/min (>60); GFR (African American) 48 ML/MIN (>60)
[2020-10-18 15:00] LABS: Calcium 11.3 mg/dl (8.4-10.2); Glucose 323 mg/dl (74-100)
== END ==
PROVIDERS: Visit Provider Family Medicine
DX: I10 Essential (primary) hypertension (principal)
CPT/HCPCS: 80048; 85025

== ENCOUNTER → 2020-11-05 12:52 | Outpatient (CLI) | payer MEDICARE, MEDICAID, SELFPAY ==
[2020-11-05 13:05] LABS: Basophils # 0.1 K/mm3 (0-0.2); Basophils % 0.8 % (0.1-2.0); Eosinophils # 0.4 K/mm3 (0.0-0.4); Eosinophils % 4.6 % (0.1-12.0); Hematocrit 27.9 % (42.0-52.0); Hemoglobin 8.4 g/dL (14.1-18.0); Lymphocytes # 1.6 K/mm3 (0.7-4.5); Lymphocytes % 16.6 % (10-50); Mean Corpuscular Hemoglobin 27.2 pg (27.0-31.2); Mean Corpuscular Volume 90.7 fl (80-94); Mean Platelet Volume 8.2 fl (7.4-10.4); Monocytes # 0.5 K/mm3 (0.1-1.0); Monocytes % 5.4 % (1.7-9.3); Neutrophils # 6.9 K/mm3 (1.8-7.8); Neutrophils % 72.5 % (37.0-80.0); Platelet Count 385 K/mm3 (142-424); Red Blood Count 3.07 M/mm3 (4.60-6.20); Red Cell Distribution Width 16.3 % (11.5-17.5); White Blood Count 9.5 K/mm3 (4.8-10.8)
[2020-11-05 13:59] LABS: Chloride 114 mmol/L (98-107); Potassium 5.4 mmoL/L (3.5-5.1); Sodium 142 mmol/L (136-145)
[2020-11-05 14:01] LABS: Blood Urea Nitrogen 65 mg/dl (9-20); Estimated Glomerular Filt Rate 42 ml/min (>60); GFR (African American) 51 ML/MIN (>60)
[2020-11-05 14:02] LABS: Anion Gap 17.4 mEq/L (5-15); Calcium 10.8 mg/dl (8.4-10.2); Carbon Dioxide 16 mmol/L (22.0-30.0); Glucose 172 mg/dl (74-100)
== END ==
PROVIDERS: Visit Provider Family Medicine
DX: I10 Essential (primary) hypertension (principal); E83.52 Hypercalcemia
CPT/HCPCS: 80048; 85025

== ENCOUNTER → 2020-11-10 11:51 | Outpatient (CLI) | payer MEDICARE, MEDICAID, SELFPAY ==
--- NOTE | 2020-11-10 11:55 | XR_ITS ---
PROCEDURE: XR SHOULDER LT MIN 2V CLINICAL INDICATION: PAIN IN LT SHOULDER COMPARISON: CR XR SHOULDER LT MIN 2V from 09/24/2019 CR XR SHOULDER RT MIN 2V from 03/22/2020 FINDINGS: There is severe subacromial stenosis with high-riding humeral head with loss of the acromial humeral joint space consistent with rotator cuff tear. There is diffuse demineralization No acute fracture apparent. There are multiple old left-sided rib fractures. Osteoarthritic changes are present at the AC joint Other findings:None. IMPRESSION: Severe subacromial stenosis with high-riding humeral head consistent with rotator cuff tear Dictated by: Danilo Young MD 11/10/2020 12:44 Danilo Young MD in [facility] 11/10/2020 12:44
--- NOTE | 2020-11-10 11:55 | XR_ITS ---
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 There is mottled air like density overlying the inferior pubic rami on both sides possibly due to trapped air and debris within the soft tissue/skin fold. Please correlate clinically. No acute fracture or dislocation is evident. There are mild osteoarthritic changes of the hips. There is diffuse bony demineralization of the femoral shafts. IMPRESSION: No acute fracture. Mild osteoarthritic change of the hips. Diffuse demineralization of the proximal shafts of the femurs which may be due to osteoporosis. Multiple myeloma could have a similar appearance. Mottled air density along the inferior aspect of the inferior pubic rami possibly due to artifact. Please correlate with physical exam. Dictated by: Danilo Young MD 11/10/2020 12:49 Danilo Young MD in [place] 11/10/2020 12:49
== END ==
PROVIDERS: PCP Physician Assistant; Visit Provider Physician Assistant
DX: M25.551 Pain in right hip (principal); E11.22 Type 2 diabetes mellitus with diabetic chronic kidney disease; M25.512 Pain in left shoulder; Z79.4 Long term (current) use of insulin
CPT/HCPCS: 73030; 73502

== ENCOUNTER → 2020-11-18 11:19 | Outpatient (CLI) | payer MEDICARE, MEDICAID, SELFPAY ==
[2020-11-18 11:23] LABS: Microscopic, Urine URINE MICROSCOPIC (MICROSCOPIC)
[2020-11-18 12:57] LABS: Appearance,Urine CLOUDY (Clear); Blood, Urine 3+ (Negative); Color,Urine RED (Yellow); Glucose,Urine (UA) Negative (Negative); Ketones,Urine Negative (Negative); Leukocyte Esterase,Urine 2+ (Negative); Nitrate,Urine POSITIVE (Negative); PH,Urine 5.5 (5.0-8.5); Protein,Urine 2+ (Negative); Specific Gravity, Urine 1.015 (1.005-1.030)
[2020-11-18 12:58] LABS: Bilirubin,Urine 1+ (Negative)
[2020-11-18 13:06] LABS: Bacteria,Urine 1+ /lpf; RBC,Urine TNTC #/hpf (0-3)
== END ==
PROVIDERS: Visit Provider Family Medicine
DX: R31.9 Hematuria, unspecified (principal)
CPT/HCPCS: 81001; 87086; 87088; 87186

== ENCOUNTER → 2020-11-19 16:04 | Outpatient (CLI) | payer MEDICARE, MEDICAID, SELFPAY ==
[2020-11-19 16:19] LABS: Basophils # 0.1 K/mm3 (0-0.2); Basophils % 0.7 % (0.1-2.0); Eosinophils # 0.4 K/mm3 (0.0-0.4); Eosinophils % 4.4 % (0.1-12.0); Hematocrit 28.2 % (42.0-52.0); Lymphocytes # 1.7 K/mm3 (0.7-4.5); Lymphocytes % 19.8 % (10-50); Mean Corpuscular HGB Conc 28.5 g/dL (31.8-35.4); Mean Corpuscular Hemoglobin 27.7 pg (27.0-31.2); Mean Corpuscular Volume 97.4 fl (80-94); Mean Platelet Volume 7.6 fl (7.4-10.4); Monocytes # 0.5 K/mm3 (0.1-1.0); Monocytes % 5.5 % (1.7-9.3); Neutrophils # 6.1 K/mm3 (1.8-7.8); Neutrophils % 69.6 % (37.0-80.0); Platelet Count 346 K/mm3 (142-424); Red Cell Distribution Width 17.2 % (11.5-17.5); White Blood Count 8.8 K/mm3 (4.8-10.8)
[2020-11-19 17:03] LABS: Anion Gap 17.9 mEq/L (5-15); Blood Urea Nitrogen 61 mg/dl (9-20); Calcium 10.7 mg/dl (8.4-10.2); Carbon Dioxide 18 mmol/L (22.0-30.0); Chloride 112 mmol/L (98-107); Estimated Glomerular Filt Rate 31 ml/min (>60); GFR (African American) 38 ML/MIN (>60); Glucose 242 mg/dl (74-100); Sodium 141 mmol/L (136-145)
[2020-11-19 17:17] LABS: Potassium 6.9 mmoL/L (3.5-5.1)
== END ==
PROVIDERS: Visit Provider Family Medicine
DX: I25.10 Atherosclerotic heart disease of native coronary artery without angina pectoris (principal)
CPT/HCPCS: 36415; 80048; 85025

== ENCOUNTER → 2020-11-24 12:14 | Outpatient (CLI) | payer MEDICARE, MEDICAID, SELFPAY ==
[2020-11-24 12:19] LABS: Microscopic, Urine URINE MICROSCOPIC (MICROSCOPIC)
[2020-11-24 12:33] LABS: Appearance,Urine TURBID (Clear); Bilirubin,Urine Negative (Negative); Blood, Urine 3+ (Negative); Color,Urine BROWN (Yellow); Glucose,Urine (UA) Negative (Negative); Ketones,Urine Negative (Negative); Leukocyte Esterase,Urine 3+ (Negative); Nitrate,Urine POSITIVE (Negative); PH,Urine 5.5 (5.0-8.5); Protein,Urine 2+ (Negative); Specific Gravity, Urine 1.015 (1.005-1.030); Urobilinogen,Urine 0.2 EU/dl (0.2)
[2020-11-24 12:36] LABS: Basophils % 0.7 % (0.1-2.0); Chloride 115 mmol/L (98-107); Eosinophils # 0.3 K/mm3 (0.0-0.4); Eosinophils % 5.3 % (0.1-12.0); Hematocrit 26.3 % (42.0-52.0); Hemoglobin 7.6 g/dL (14.1-18.0); Lymphocytes # 1.7 K/mm3 (0.7-4.5); Lymphocytes % 25.5 % (10-50); Mean Corpuscular HGB Conc 28.8 g/dL (31.8-35.4); Mean Corpuscular Hemoglobin 28.5 pg (27.0-31.2); Mean Corpuscular Volume 98.9 fl (80-94); Mean Platelet Volume 8.1 fl (7.4-10.4); Monocytes # 0.4 K/mm3 (0.1-1.0); Monocytes % 6.4 % (1.7-9.3); Neutrophils # 4.1 K/mm3 (1.8-7.8); Neutrophils % 62.2 % (37.0-80.0); Platelet Count 318 K/mm3 (142-424); Red Blood Count 2.66 M/mm3 (4.60-6.20); Red Cell Distribution Width 17.4 % (11.5-17.5); Sodium 142 mmol/L (136-145); White Blood Count 6.5 K/mm3 (4.8-10.8)
[2020-11-24 12:37] LABS: Potassium 5.2 mmoL/L (3.5-5.1)
[2020-11-24 12:39] LABS: Blood Urea Nitrogen 58 mg/dl (9-20); Estimated Glomerular Filt Rate 37 ml/min (>60); GFR (African American) 45 ML/MIN (>60)
[2020-11-24 12:40] LABS: Anion Gap 15.2 mEq/L (5-15); Calcium 10.4 mg/dl (8.4-10.2); Carbon Dioxide 17 mmol/L (22.0-30.0); Glucose 165 mg/dl (74-100)
[2020-11-24 12:46] LABS: Bacteria,Urine 3+ /lpf; RBC,Urine 20-50 #/hpf (0-3)
== END ==
PROVIDERS: Visit Provider Family Medicine
DX: E11.9 Type 2 diabetes mellitus without complications (principal); Z79.4 Long term (current) use of insulin; R82.90 Unspecified abnormal findings in urine
CPT/HCPCS: 80048; 81001; 85025; 87086; 87088; 87186

== ENCOUNTER → 2020-12-03 12:06 | Outpatient (CLI) | payer MEDICARE, MEDICAID, SELFPAY ==
[2020-12-03 13:26] LABS: Basophils # 0.1 K/mm3 (0-0.2); Basophils % 0.7 % (0.1-2.0); Eosinophils # 0.4 K/mm3 (0.0-0.4); Eosinophils % 5.5 % (0.1-12.0); Hematocrit 29.2 % (42.0-52.0); Hemoglobin 8.3 g/dL (14.1-18.0); Lymphocytes # 1.7 K/mm3 (0.7-4.5); Lymphocytes % 21.4 % (10-50); Mean Corpuscular HGB Conc 28.5 g/dL (31.8-35.4); Mean Corpuscular Hemoglobin 26.9 pg (27.0-31.2); Mean Corpuscular Volume 94.1 fl (80-94); Mean Platelet Volume 6.8 fl (7.4-10.4); Monocytes # 0.5 K/mm3 (0.1-1.0); Monocytes % 6.7 % (1.7-9.3); Neutrophils # 5.1 K/mm3 (1.8-7.8); Neutrophils % 65.7 % (37.0-80.0); Platelet Count 360 K/mm3 (142-424); Red Blood Count 3.11 M/mm3 (4.60-6.20); Red Cell Distribution Width 15.9 % (11.5-17.5); White Blood Count 7.8 K/mm3 (4.8-10.8)
[2020-12-03 14:19] LABS: Chloride 111 mmol/L (98-107)
[2020-12-03 14:20] LABS: Potassium 4.8 mmoL/L (3.5-5.1); Sodium 143 mmol/L (136-145)
[2020-12-03 14:23] LABS: Anion Gap 14.8 mEq/L (5-15); Blood Urea Nitrogen 41 mg/dl (9-20); Calcium 10.8 mg/dl (8.4-10.2); Carbon Dioxide 22 mmol/L (22.0-30.0); Estimated Glomerular Filt Rate 57 ml/min (>60); GFR (African American) 69 ML/MIN (>60); Glucose 147 mg/dl (74-100)
== END ==
PROVIDERS: Visit Provider Family Medicine
DX: N18.4 Chronic kidney disease, stage 4 (severe) (principal)
CPT/HCPCS: 36415; 80048; 85025

== ENCOUNTER → 2020-12-14 09:03 | Outpatient (CLI) | payer MEDICARE, MEDICAID, SELFPAY ==
[2020-12-14 09:16] LABS: Microscopic, Urine URINE MICROSCOPIC (MICROSCOPIC)
[2020-12-14 09:22] LABS: Appearance,Urine SL CLOUDY (Clear); Bilirubin,Urine Negative (Negative); Blood, Urine 1+ (Negative); Color,Urine YELLOW (Yellow); Glucose,Urine (UA) 1+ (Negative); Ketones,Urine Negative (Negative); Leukocyte Esterase,Urine 3+ (Negative); Nitrate,Urine POSITIVE (Negative); Protein,Urine TRACE (Negative); Urobilinogen,Urine 0.2 EU/dl (0.2)
[2020-12-14 09:47] LABS: Bacteria,Urine 1+ /lpf; WBC,Urine 20-50 #/hpf (0-3)
[2020-12-14 10:01] LABS: Hematocrit 27.8 % (42.0-52.0); Hemoglobin 8.2 g/dL (14.1-18.0); Mean Corpuscular HGB Conc 29.5 g/dL (31.8-35.4); Mean Corpuscular Hemoglobin 27.5 pg (27.0-31.2); Mean Corpuscular Volume 93.3 fl (80-94); Platelet Count 475 K/mm3 (142-424); Red Blood Count 2.98 M/mm3 (4.60-6.20); Red Cell Distribution Width 16.1 % (11.5-17.5); White Blood Count 10.5 K/mm3 (4.8-10.8)
[2020-12-14 10:30] LABS: Creatinine,Urine Random 28 mg/dL (Not Estab.)
[2020-12-14 10:31] LABS: Collection Time,Urine 24 hours; Creatinine 24 Hour,Urine 504 mg/24hr (630-2500); Total Protein 24 Hour,Urine 630 mg/24 hr (40-90); Total Volume,Urine 1800 mL (800-1800)
[2020-12-14 10:35] LABS: Albumin Level 3.2 g/dl (3.5-5.0); Blood Urea Nitrogen 56 mg/dl (9-20); Calcium 9.9 mg/dl (8.4-10.2); Carbon Dioxide 17 mmol/L (22.0-30.0); Chloride 113 mmol/L (98-107); Estimated Glomerular Filt Rate 57 ml/min (>60); GFR (African American) 69 ML/MIN (>60); Glucose 216 mg/dl (74-100); Phosphorous 4.3 mg/dl (2.5-4.5); Sodium 142 mmol/L (136-145)
[2020-12-14 10:46] LABS: Intact Parathyroid Hormone 11.2 pg/mL (7.5-53.5)
[2020-12-14 10:53] LABS: 25-OH Vitamin D, Total 45.9 ng/mL (30-100)
[2020-12-15 10:12] LABS: Calcium, Urine 5.7 mg/dL (Not Estab.); Calcium, Urine 24hr 97 mg/24 hr (0-320)
[2020-12-15 12:15] LABS: Albumin 2.8 g/dL (2.9-4.4); Alpha-1-Globulin 0.3 g/dL (0.0-0.4); Alpha-2-Globulin 1.1 g/dL (0.4-1.0); Gamma Globulin 1.6 g/dL (0.4-1.8); Protein, Total 7.2 g/dL (6.0-8.5)
[2021-03-16 04:15] LABS: Free Kappa Lt Chains 147.4; Free Lambda Lt Chains 94.1
== END ==
PROVIDERS: Visit Provider Internal Medicine Nephrology
DX: N18.32 Chronic kidney disease, stage 3b (principal); E83.52 Hypercalcemia; R82.90 Unspecified abnormal findings in urine
CPT/HCPCS: 36415; 80069; 81001; 82306; 82340; 82570; 83883; 83970; 84155; 84165; 85014; 85018; 85048; 85049; 87086; 87186

== ENCOUNTER → 2020-12-17 15:27 | Outpatient (CLI) | payer MEDICARE, MEDICAID, SELFPAY ==
[2020-12-17 15:39] LABS: Basophils # 0.1 K/mm3 (0-0.2); Basophils % 0.7 % (0.1-2.0); Eosinophils # 0.3 K/mm3 (0.0-0.4); Eosinophils % 2.7 % (0.1-12.0); Hemoglobin 8.3 g/dL (14.1-18.0); Lymphocytes # 1.6 K/mm3 (0.7-4.5); Lymphocytes % 17.4 % (10-50); Mean Corpuscular HGB Conc 28.8 g/dL (31.8-35.4); Mean Corpuscular Volume 93.6 fl (80-94); Mean Platelet Volume 6.6 fl (7.4-10.4); Monocytes # 0.5 K/mm3 (0.1-1.0); Monocytes % 5.7 % (1.7-9.3); Neutrophils # 6.9 K/mm3 (1.8-7.8); Neutrophils % 73.4 % (37.0-80.0); Platelet Count 382 K/mm3 (142-424); Red Blood Count 3.07 M/mm3 (4.60-6.20); Red Cell Distribution Width 15.5 % (11.5-17.5); White Blood Count 9.4 K/mm3 (4.8-10.8)
[2020-12-17 15:43] LABS: Hematocrit 28.8 % (42.0-52.0)
[2020-12-17 16:35] LABS: Chloride 114 mmol/L (98-107); Sodium 143 mmol/L (136-145)
[2020-12-17 16:36] LABS: Potassium 5.7 mmoL/L (3.5-5.1)
[2020-12-17 16:38] LABS: Blood Urea Nitrogen 51 mg/dl (9-20); Estimated Glomerular Filt Rate 63 ml/min (>60); GFR (African American) 76 ML/MIN (>60); Iron 36 ug/dL (49-181)
[2020-12-17 16:39] LABS: Anion Gap 14.7 mEq/L (5-15); Calcium 9.3 mg/dl (8.4-10.2); Carbon Dioxide 20 mmol/L (22.0-30.0); Glucose 288 mg/dl (74-100)
== END ==
PROVIDERS: Visit Provider Family Medicine
DX: I10 Essential (primary) hypertension (principal); D50.9 Iron deficiency anemia, unspecified; E87.5 Hyperkalemia
CPT/HCPCS: 80048; 83540; 85025

== ENCOUNTER 2020-12-27 09:30 | Outpatient (CLI) | payer MEDICARE, MEDICAID, SELFPAY ==
[2020-12-27 10:05] VITALS: BP 112/68; PULSE 84; RESP 14; TEMP 36.3; O2SAT 99
[2020-12-27 10:50] VITALS: BP 114/70; PULSE 78; RESP 16; TEMP 36.3; O2SAT 97
== END 2020-12-27 10:50 | disposition home or self-care (01) ==
LOC: INF 09:32
PROVIDERS: PCP Family Medicine; Visit Provider Family Medicine
DX: D50.9 Iron deficiency anemia, unspecified (principal)
CPT/HCPCS: 96365; J1439

== ENCOUNTER → 2020-12-31 13:07 | Outpatient (CLI) | payer MEDICARE, MEDICAID, SELFPAY ==
[2020-12-31 13:34] LABS: Basophils # 0.1 K/mm3 (0-0.2); Basophils % 0.8 % (0.1-2.0); Eosinophils # 0.3 K/mm3 (0.0-0.4); Eosinophils % 3.7 % (0.1-12.0); Hematocrit 28.5 % (42.0-52.0); Hemoglobin 8.4 g/dL (14.1-18.0); Lymphocytes # 1.9 K/mm3 (0.7-4.5); Lymphocytes % 23.6 % (10-50); Mean Corpuscular HGB Conc 29.5 g/dL (31.8-35.4); Mean Corpuscular Hemoglobin 27.3 pg (27.0-31.2); Mean Corpuscular Volume 92.8 fl (80-94); Mean Platelet Volume 8.2 fl (7.4-10.4); Monocytes # 0.6 K/mm3 (0.1-1.0); Monocytes % 7.4 % (1.7-9.3); Neutrophils # 5.2 K/mm3 (1.8-7.8); Neutrophils % 64.6 % (37.0-80.0); Platelet Count 373 K/mm3 (142-424); Red Blood Count 3.07 M/mm3 (4.60-6.20); Red Cell Distribution Width 17.2 % (11.5-17.5); White Blood Count 8.1 K/mm3 (4.8-10.8)
[2020-12-31 13:39] LABS: Chloride 113 mmol/L (98-107); Potassium 5.2 mmoL/L (3.5-5.1); Sodium 142 mmol/L (136-145)
[2020-12-31 13:42] LABS: Blood Urea Nitrogen 45 mg/dl (9-20); Estimated Glomerular Filt Rate 63 ml/min (>60); GFR (African American) 76 ML/MIN (>60); Iron 52 ug/dL (49-181)
[2020-12-31 13:43] LABS: Anion Gap 13.2 mEq/L (5-15); Calcium 9.8 mg/dl (8.4-10.2); Carbon Dioxide 21 mmol/L (22.0-30.0); Glucose 202 mg/dl (74-100)
== END ==
PROVIDERS: Visit Provider Family Medicine
DX: I10 Essential (primary) hypertension (principal); E78.5 Hyperlipidemia, unspecified; D64.9 Anemia, unspecified
CPT/HCPCS: 36415; 80048; 83540; 85025

== ENCOUNTER 2021-01-03 09:42 | Outpatient (CLI) | payer MEDICARE, MEDICAID, SELFPAY ==
[2021-01-03 10:07] VITALS: BP 87/53; PULSE 74; RESP 18; TEMP 36.2
[2021-01-03 10:45] VITALS: BP 98/58; PULSE 74; RESP 18
== END 2021-01-03 10:45 | disposition home or self-care (01) ==
LOC: INF 09:44
PROVIDERS: PCP Family Medicine; Visit Provider Family Medicine
DX: D50.9 Iron deficiency anemia, unspecified (principal)
CPT/HCPCS: 96365; J1439

== ENCOUNTER → 2021-01-14 17:30 | Outpatient (CLI) | payer MEDICARE, MEDICAID, SELFPAY ==
[2021-01-14 17:50] LABS: Basophils # 0.1 K/mm3 (0-0.2); Basophils % 0.7 % (0.1-2.0); Eosinophils # 0.2 K/mm3 (0.0-0.4); Eosinophils % 2.3 % (0.1-12.0); Hematocrit 29.7 % (42.0-52.0); Hemoglobin 8.4 g/dL (14.1-18.0); Lymphocytes % 9.1 % (10-50); Mean Corpuscular HGB Conc 28.3 g/dL (31.8-35.4); Mean Corpuscular Hemoglobin 27.6 pg (27.0-31.2); Mean Corpuscular Volume 97.6 fl (80-94); Mean Platelet Volume 8.6 fl (7.4-10.4); Monocytes # 0.6 K/mm3 (0.1-1.0); Monocytes % 5.4 % (1.7-9.3); Neutrophils # 8.8 K/mm3 (1.8-7.8); Neutrophils % 82.6 % (37.0-80.0); Platelet Count 378 K/mm3 (142-424); Red Blood Count 3.04 M/mm3 (4.60-6.20); Red Cell Distribution Width 18.3 % (11.5-17.5); White Blood Count 10.7 K/mm3 (4.8-10.8)
[2021-01-14 18:48] LABS: Anion Gap 13.8 mEq/L (5-15); Blood Urea Nitrogen 35 mg/dl (9-20); Carbon Dioxide 22 mmol/L (22.0-30.0); Chloride 107 mmol/L (98-107); Estimated Glomerular Filt Rate 52 ml/min (>60); GFR (African American) 63 ML/MIN (>60); Glucose 287 mg/dl (74-100); Potassium 4.8 mmoL/L (3.5-5.1); Sodium 138 mmol/L (136-145)
== END ==
PROVIDERS: Visit Provider Family Medicine
DX: I10 Essential (primary) hypertension (principal); E78.5 Hyperlipidemia, unspecified; D50.9 Iron deficiency anemia, unspecified
CPT/HCPCS: 80048; 85025

== ENCOUNTER → 2021-01-20 13:12 | Outpatient (POV) | payer MEDICARE, MEDICAID, SELFPAY | PROVIDERS: Visit Provider Internal Medicine Nephrology | DX: Z00.00 Encounter for general adult medical examination without abnormal findings (principal) ==

== ENCOUNTER → 2021-02-16 15:48 | Outpatient (CLI) | payer MEDICARE, MEDICAID, SELFPAY ==
[2021-02-16 16:24] LABS: Basophils # 0.1 K/mm3 (0-0.2); Eosinophils # 0.5 K/mm3 (0.0-0.4); Eosinophils % 5.1 % (0.1-12.0); Hematocrit 26.2 % (42.0-52.0); Lymphocytes # 1.9 K/mm3 (0.7-4.5); Lymphocytes % 21.5 % (10-50); Mean Corpuscular HGB Conc 30.6 g/dL (31.8-35.4); Mean Corpuscular Hemoglobin 28.8 pg (27.0-31.2); Mean Platelet Volume 8.2 fl (7.4-10.4); Monocytes # 0.5 K/mm3 (0.1-1.0); Monocytes % 5.8 % (1.7-9.3); Neutrophils # 5.9 K/mm3 (1.8-7.8); Neutrophils % 66.6 % (37.0-80.0); Platelet Count 408 K/mm3 (142-424); Red Blood Count 2.78 M/mm3 (4.60-6.20); Red Cell Distribution Width 18.4 % (11.5-17.5); White Blood Count 8.9 K/mm3 (4.8-10.8)
[2021-02-16 16:36] LABS: Chloride 112 mmol/L (98-107); Sodium 139 mmol/L (136-145)
[2021-02-16 16:37] LABS: Potassium 5.9 mmoL/L (3.5-5.1)
[2021-02-16 16:39] LABS: Blood Urea Nitrogen 65 mg/dl (9-20); Estimated Glomerular Filt Rate 33 ml/min (>60); GFR (African American) 40 ML/MIN (>60)
[2021-02-16 16:40] LABS: Anion Gap 16.9 mEq/L (5-15); Calcium 10.7 mg/dl (8.4-10.2); Carbon Dioxide 16 mmol/L (22.0-30.0); Glucose 188 mg/dl (74-100)
== END ==
PROVIDERS: Visit Provider Family Medicine
DX: I10 Essential (primary) hypertension (principal)
CPT/HCPCS: 80048; 85025

== ENCOUNTER → 2021-02-23 15:24 | Outpatient (CLI) | payer MEDICARE, MEDICAID, SELFPAY ==
[2021-02-23 15:38] LABS: Basophils # 0.1 K/mm3 (0-0.2); Basophils % 0.7 % (0.1-2.0); Eosinophils # 0.4 K/mm3 (0.0-0.4); Eosinophils % 4.2 % (0.1-12.0); Hematocrit 27.9 % (42.0-52.0); Hemoglobin 8.3 g/dL (14.1-18.0); Lymphocytes # 1.4 K/mm3 (0.7-4.5); Lymphocytes % 16.6 % (10-50); Mean Corpuscular HGB Conc 29.7 g/dL (31.8-35.4); Mean Corpuscular Volume 97.9 fl (80-94); Monocytes # 0.6 K/mm3 (0.1-1.0); Monocytes % 7.5 % (1.7-9.3); Platelet Count 307 K/mm3 (142-424); Red Blood Count 2.85 M/mm3 (4.60-6.20); Red Cell Distribution Width 19.5 % (11.5-17.5); White Blood Count 8.4 K/mm3 (4.8-10.8)
[2021-02-23 16:15] LABS: Anion Gap 13.4 mEq/L (5-15); Blood Urea Nitrogen 48 mg/dl (9-20); Calcium 10.8 mg/dl (8.4-10.2); Carbon Dioxide 19 mmol/L (22.0-30.0); Chloride 113 mmol/L (98-107); Estimated Glomerular Filt Rate 39 ml/min (>60); GFR (African American) 47 ML/MIN (>60); Glucose 169 mg/dl (74-100); Potassium 5.4 mmoL/L (3.5-5.1); Sodium 140 mmol/L (136-145)
[2021-02-23 23:17] LABS: Iron 42 ug/dL (49-181)
== END ==
PROVIDERS: Visit Provider Family Medicine
DX: D50.9 Iron deficiency anemia, unspecified (principal)
CPT/HCPCS: 80048; 83540; 85025

== ENCOUNTER → 2021-02-25 09:14 | Outpatient (CLI) | payer MEDICARE, MEDICAID, SELFPAY ==
[2021-02-25 09:16] LABS: Microscopic, Urine URINE MICROSCOPIC (MICROSCOPIC)
[2021-02-25 09:31] LABS: Appearance,Urine CLEAR (Clear); Bilirubin,Urine Negative (Negative); Blood, Urine 2+ (Negative); Color,Urine YELLOW (Yellow); Glucose,Urine (UA) Negative (Negative); Ketones,Urine Negative (Negative); Leukocyte Esterase,Urine 3+ (Negative); Nitrate,Urine POSITIVE (Negative); Protein,Urine TRACE (Negative); Urobilinogen,Urine 0.2 EU/dl (0.2)
[2021-02-25 09:42] LABS: Creatinine,Urine Random 14 mg/dL (Not Estab.)
[2021-02-25 09:46] LABS: Bacteria,Urine 2+ /lpf
== END ==
PROVIDERS: Visit Provider Internal Medicine Nephrology
DX: N18.31 Chronic kidney disease, stage 3a (principal); B96.1 Klebsiella pneumoniae [K. pneumoniae] as the cause of diseases classified elsewhere; R82.90 Unspecified abnormal findings in urine
CPT/HCPCS: 81001; 82570; 84155; 87086; 87088; 87186

== ENCOUNTER → 2021-02-28 15:37 | Outpatient (POV) | payer MEDICARE, MEDICAID, SELFPAY | PROVIDERS: Visit Provider Internal Medicine Nephrology | DX: Z00.00 Encounter for general adult medical examination without abnormal findings (principal) ==

== ENCOUNTER → 2021-03-09 14:22 | Outpatient (CLI) | payer MEDICARE, MEDICAID, SELFPAY ==
[2021-03-09 14:32] LABS: Basophils # 0.1 K/mm3 (0-0.2); Basophils % 1.6 % (0.1-2.0); Eosinophils # 0.3 K/mm3 (0.0-0.4); Eosinophils % 4.4 % (0.1-12.0); Hematocrit 30.8 % (42.0-52.0); Hemoglobin 8.8 g/dL (14.1-18.0); Lymphocytes # 1.2 K/mm3 (0.7-4.5); Lymphocytes % 17.1 % (10-50); Mean Corpuscular HGB Conc 28.5 g/dL (31.8-35.4); Mean Corpuscular Hemoglobin 29.2 pg (27.0-31.2); Mean Corpuscular Volume 102.8 fl (80-94); Mean Platelet Volume 7.8 fl (7.4-10.4); Monocytes # 0.4 K/mm3 (0.1-1.0); Monocytes % 5.8 % (1.7-9.3); Neutrophils # 5.2 K/mm3 (1.8-7.8); Neutrophils % 71.1 % (37.0-80.0); Platelet Count 491 K/mm3 (142-424); Red Blood Count 2.99 M/mm3 (4.60-6.20); Red Cell Distribution Width 18.9 % (11.5-17.5); White Blood Count 7.3 K/mm3 (4.8-10.8)
[2021-03-09 14:59] LABS: Chloride 112 mmol/L (98-107); Potassium 4.9 mmoL/L (3.5-5.1); Sodium 142 mmol/L (136-145)
[2021-03-09 15:02] LABS: Anion Gap 14.9 mEq/L (5-15); Blood Urea Nitrogen 43 mg/dl (9-20); Carbon Dioxide 20 mmol/L (22.0-30.0); Estimated Glomerular Filt Rate 42 ml/min (>60); GFR (African American) 51 ML/MIN (>60); Glucose 188 mg/dl (74-100)
== END ==
PROVIDERS: Visit Provider Family Medicine
DX: I10 Essential (primary) hypertension (principal); E78.5 Hyperlipidemia, unspecified; E11.9 Type 2 diabetes mellitus without complications; Z79.4 Long term (current) use of insulin
CPT/HCPCS: 80048; 85025

== ENCOUNTER → 2021-03-23 12:46 | Outpatient (CLI) | payer MEDICARE, MEDICAID, SELFPAY ==
[2021-03-23 13:22] LABS: Basophils # 0.2 K/mm3 (0-0.2); Basophils % 1.4 % (0.1-2.0); Eosinophils # 0.5 K/mm3 (0.0-0.4); Eosinophils % 4.8 % (0.1-12.0); Hematocrit 30.8 % (42.0-52.0); Hemoglobin 9.2 g/dL (14.1-18.0); Lymphocytes # 1.6 K/mm3 (0.7-4.5); Mean Corpuscular Volume 96.9 fl (80-94); Mean Platelet Volume 7.5 fl (7.4-10.4); Monocytes # 0.6 K/mm3 (0.1-1.0); Monocytes % 5.5 % (1.7-9.3); Neutrophils # 7.8 K/mm3 (1.8-7.8); Neutrophils % 73.4 % (37.0-80.0); Platelet Count 407 K/mm3 (142-424); Red Blood Count 3.17 M/mm3 (4.60-6.20); Red Cell Distribution Width 18.3 % (11.5-17.5); White Blood Count 10.6 K/mm3 (4.8-10.8)
[2021-03-23 14:18] LABS: Chloride 109 mmol/L (98-107); Potassium 5.6 mmoL/L (3.5-5.1); Sodium 139 mmol/L (136-145)
[2021-03-23 14:21] LABS: Anion Gap 15.6 mEq/L (5-15); Blood Urea Nitrogen 47 mg/dl (9-20); Calcium 10.7 mg/dl (8.4-10.2); Carbon Dioxide 20 mmol/L (22.0-30.0); Estimated Glomerular Filt Rate 45 ml/min (>60); GFR (African American) 54 ML/MIN (>60); Glucose 160 mg/dl (74-100); Iron 52 ug/dL (49-181)
== END ==
PROVIDERS: Visit Provider Family Medicine
DX: R79.89 Other specified abnormal findings of blood chemistry (principal); I10 Essential (primary) hypertension; E78.5 Hyperlipidemia, unspecified; E11.9 Type 2 diabetes mellitus without complications; Z79.4 Long term (current) use of insulin
CPT/HCPCS: 80048; 83540; 85025

== ENCOUNTER → 2021-04-06 12:06 | Outpatient (CLI) | payer MEDICARE, MEDICAID, SELFPAY ==
[2021-04-06 12:54] LABS: Basophils # 0.1 K/mm3 (0-0.2); Basophils % 1.6 % (0.1-2.0); Eosinophils # 0.6 K/mm3 (0.0-0.4); Eosinophils % 8.2 % (0.1-12.0); Hematocrit 32.4 % (42.0-52.0); Hemoglobin 10.1 g/dL (14.1-18.0); Lymphocytes # 1.9 K/mm3 (0.7-4.5); Lymphocytes % 24.3 % (10-50); Mean Corpuscular HGB Conc 31.1 g/dL (31.8-35.4); Mean Corpuscular Hemoglobin 30.7 pg (27.0-31.2); Mean Corpuscular Volume 98.7 fl (80-94); Mean Platelet Volume 8.1 fl (7.4-10.4); Monocytes # 0.5 K/mm3 (0.1-1.0); Monocytes % 6.5 % (1.7-9.3); Neutrophils # 4.5 K/mm3 (1.8-7.8); Neutrophils % 59.3 % (37.0-80.0); Platelet Count 375 K/mm3 (142-424); Red Blood Count 3.28 M/mm3 (4.60-6.20); Red Cell Distribution Width 17.8 % (11.5-17.5); White Blood Count 7.6 K/mm3 (4.8-10.8)
[2021-04-06 13:10] LABS: Chloride 113 mmol/L (98-107); Potassium 4.9 mmoL/L (3.5-5.1); Sodium 138 mmol/L (136-145)
[2021-04-06 13:13] LABS: Anion Gap 12.9 mEq/L (5-15); Blood Urea Nitrogen 50 mg/dl (9-20); Calcium 10.6 mg/dl (8.4-10.2); Carbon Dioxide 17 mmol/L (22.0-30.0); Estimated Glomerular Filt Rate 42 ml/min (>60); GFR (African American) 51 ML/MIN (>60); Glucose 195 mg/dl (74-100)
== END ==
PROVIDERS: Visit Provider Family Medicine
DX: I25.10 Atherosclerotic heart disease of native coronary artery without angina pectoris (principal); I10 Essential (primary) hypertension
CPT/HCPCS: 80048; 85025

== ENCOUNTER → 2021-04-18 11:02 | Outpatient (CLI) | payer MEDICARE, MEDICAID, SELFPAY ==
[2021-04-18 11:06] LABS: Microscopic, Urine URINE MICROSCOPIC (MICROSCOPIC)
[2021-04-18 11:34] LABS: Appearance,Urine CLEAR (Clear); Bilirubin,Urine Negative (Negative); Blood, Urine 3+ (Negative); Color,Urine YELLOW (Yellow); Glucose,Urine (UA) Negative (Negative); Ketones,Urine Negative (Negative); Leukocyte Esterase,Urine 3+ (Negative); Nitrate,Urine POSITIVE (Negative); PH,Urine 5.5 (5.0-8.5); Protein,Urine TRACE (Negative); Urobilinogen,Urine 0.2 EU/dl (0.2)
[2021-04-18 11:48] LABS: Chloride 113 mmol/L (98-107); Potassium 5.2 mmoL/L (3.5-5.1); Sodium 141 mmol/L (136-145)
[2021-04-18 11:49] LABS: Albumin Level 3.4 g/dl (3.5-5.0); Creatinine,Urine Random 13 mg/dL (Not Estab.)
[2021-04-18 11:51] LABS: Anion Gap 12.2 mEq/L (5-15); Blood Urea Nitrogen 45 mg/dl (9-20); Carbon Dioxide 21 mmol/L (22.0-30.0); Estimated Glomerular Filt Rate 52 ml/min (>60); GFR (African American) 63 ML/MIN (>60)
[2021-04-18 11:52] LABS: Calcium 11.5 mg/dl (8.4-10.2); Glucose 129 mg/dl (74-100); Phosphorous 4.3 mg/dl (2.5-4.5)
[2021-04-18 12:25] LABS: Bacteria,Urine 2+ /lpf; Yeast,Urine 3+ /lpf
[2021-04-18 12:43] LABS: Basophils # 0.1 K/mm3 (0-0.2); Basophils % 1.1 % (0.1-2.0); Eosinophils # 0.4 K/mm3 (0.0-0.4); Eosinophils % 5.7 % (0.1-12.0); Hematocrit 31.8 % (42.0-52.0); Hemoglobin 9.6 g/dL (14.1-18.0); Lymphocytes # 1.5 K/mm3 (0.7-4.5); Lymphocytes % 20.2 % (10-50); Mean Corpuscular HGB Conc 30.3 g/dL (31.8-35.4); Mean Corpuscular Hemoglobin 29.5 pg (27.0-31.2); Mean Corpuscular Volume 97.4 fl (80-94); Mean Platelet Volume 8.1 fl (7.4-10.4); Monocytes # 0.5 K/mm3 (0.1-1.0); Monocytes % 7.1 % (1.7-9.3); Neutrophils # 4.7 K/mm3 (1.8-7.8); Neutrophils % 65.9 % (37.0-80.0); Platelet Count 319 K/mm3 (142-424); Red Blood Count 3.26 M/mm3 (4.60-6.20); Red Cell Distribution Width 18.2 % (11.5-17.5); White Blood Count 7.2 K/mm3 (4.8-10.8)
[2021-04-18 12:47] LABS: Chloride 113 mmol/L (98-107); Sodium 142 mmol/L (136-145)
[2021-04-18 12:50] LABS: Blood Urea Nitrogen 43 mg/dl (9-20); Carbon Dioxide 22 mmol/L (22.0-30.0); Estimated Glomerular Filt Rate 48 ml/min (>60); GFR (African American) 59 ML/MIN (>60)
[2021-04-18 12:51] LABS: Calcium 11.6 mg/dl (8.4-10.2); Glucose 158 mg/dl (74-100)
== END ==
PROVIDERS: Family Medicine; Visit Provider Internal Medicine Nephrology
DX: N18.30 Chronic kidney disease, stage 3 unspecified (principal); B96.1 Klebsiella pneumoniae [K. pneumoniae] as the cause of diseases classified elsewhere; R82.90 Unspecified abnormal findings in urine
CPT/HCPCS: 36415; 80048; 80069; 81001; 82570; 84155; 85025; 87086; 87088; 87186

== ENCOUNTER → 2021-05-16 15:49 | Outpatient (CLI) | payer MEDICARE, MEDICAID, SELFPAY ==
[2021-05-16 17:04] LABS: Creatinine,Urine Random 35 mg/dL (Not Estab.)
== END ==
PROVIDERS: Visit Provider Nurse Practitioner Family
DX: E11.65 Type 2 diabetes mellitus with hyperglycemia (principal); Z79.4 Long term (current) use of insulin
CPT/HCPCS: 82043; 82570

== ENCOUNTER → 2021-05-19 15:48 | Outpatient (POV) | payer MEDICARE, MEDICAID, SELFPAY | PROVIDERS: Visit Provider Internal Medicine Nephrology | DX: Z00.00 Encounter for general adult medical examination without abnormal findings (principal) ==

== ENCOUNTER → 2021-06-06 10:42 | Outpatient (CLI) | payer MEDICARE, MEDICAID, SELFPAY ==
[2021-06-06 11:43] LABS: Basophils # 0.1 K/mm3 (0-0.2); Basophils % 1.4 % (0.1-2.0); Eosinophils # 0.4 K/mm3 (0.0-0.4); Eosinophils % 6.8 % (0.1-12.0); Hematocrit 32.4 % (42.0-52.0); Lymphocytes # 1.5 K/mm3 (0.7-4.5); Lymphocytes % 24.2 % (10-50); Mean Corpuscular HGB Conc 30.7 g/dL (31.8-35.4); Mean Corpuscular Hemoglobin 30.1 pg (27.0-31.2); Mean Corpuscular Volume 97.9 fl (80-94); Mean Platelet Volume 7.8 fl (7.4-10.4); Monocytes # 0.5 K/mm3 (0.1-1.0); Monocytes % 7.6 % (1.7-9.3); Neutrophils # 3.7 K/mm3 (1.8-7.8); Neutrophils % 60.1 % (37.0-80.0); Platelet Count 289 K/mm3 (142-424); Red Blood Count 3.31 M/mm3 (4.60-6.20); Red Cell Distribution Width 17.9 % (11.5-17.5); White Blood Count 6.1 K/mm3 (4.8-10.8)
[2021-06-06 12:08] LABS: Anion Gap 14.5 mEq/L (5-15); Blood Urea Nitrogen 27 mg/dl (9-20); Calcium 10.3 mg/dl (8.4-10.2); Carbon Dioxide 21 mmol/L (22.0-30.0); Chloride 111 mmol/L (98-107); Estimated Glomerular Filt Rate 48 ml/min (>60); GFR (African American) 59 ML/MIN (>60); Glucose 132 mg/dl (74-100); Potassium 4.5 mmoL/L (3.5-5.1); Sodium 142 mmol/L (136-145)
[2021-06-06 13:03] LABS: Iron 69 ug/dL (49-181)
[2021-06-06 13:12] LABS: Total Iron Binding Capacity 232 ug/dL (261-462)
== END ==
PROVIDERS: Visit Provider Family Medicine
DX: N18.4 Chronic kidney disease, stage 4 (severe) (principal); D63.1 Anemia in chronic kidney disease; E11.40 Type 2 diabetes mellitus with diabetic neuropathy, unspecified; J96.11 Chronic respiratory failure with hypoxia; B96.1 Klebsiella pneumoniae [K. pneumoniae] as the cause of diseases classified elsewhere; Z79.4 Long term (current) use of insulin
CPT/HCPCS: 80048; 83540; 83550; 85025

== ENCOUNTER → 2021-06-22 13:49 | Outpatient (CLI) | payer MEDICARE, MEDICAID, SELFPAY ==
[2021-06-22 14:11] LABS: Basophils % 0.6 % (0.1-2.0); Eosinophils # 0.5 K/mm3 (0.0-0.4); Eosinophils % 8.1 % (0.1-12.0); Hematocrit 30.7 % (42.0-52.0); Hemoglobin 9.2 g/dL (14.1-18.0); Lymphocytes # 1.4 K/mm3 (0.7-4.5); Lymphocytes % 23.5 % (10-50); Mean Corpuscular Hemoglobin 29.6 pg (27.0-31.2); Mean Corpuscular Volume 98.4 fl (80-94); Mean Platelet Volume 8.2 fl (7.4-10.4); Monocytes # 0.5 K/mm3 (0.1-1.0); Monocytes % 7.7 % (1.7-9.3); Neutrophils # 3.7 K/mm3 (1.8-7.8); Neutrophils % 60.1 % (37.0-80.0); Platelet Count 294 K/mm3 (142-424); Red Blood Count 3.12 M/mm3 (4.60-6.20); Red Cell Distribution Width 18.2 % (11.5-17.5); White Blood Count 6.2 K/mm3 (4.8-10.8)
[2021-06-22 14:44] LABS: Chloride 115 mmol/L (98-107); Potassium 4.6 mmoL/L (3.5-5.1); Sodium 141 mmol/L (136-145)
[2021-06-22 14:47] LABS: Anion Gap 10.6 mEq/L (5-15); Blood Urea Nitrogen 44 mg/dl (9-20); Carbon Dioxide 20 mmol/L (22.0-30.0); Estimated Glomerular Filt Rate 39 ml/min (>60); GFR (African American) 47 ML/MIN (>60)
[2021-06-22 14:48] LABS: Glucose 120 mg/dl (74-100)
== END ==
PROVIDERS: Visit Provider Family Medicine
DX: D50.9 Iron deficiency anemia, unspecified (principal); N18.4 Chronic kidney disease, stage 4 (severe); I20.9 Angina pectoris, unspecified; B96.1 Klebsiella pneumoniae [K. pneumoniae] as the cause of diseases classified elsewhere
CPT/HCPCS: 80048; 85025

== ENCOUNTER → 2021-07-04 16:33 | Outpatient (CLI) | payer MEDICARE, MEDICAID, SELFPAY ==
[2021-07-04 18:11] LABS: Basophils # 0.1 K/mm3 (0-0.2); Basophils % 1.5 % (0.1-2.0); Eosinophils # 0.4 K/mm3 (0.0-0.4); Eosinophils % 5.3 % (0.1-12.0); Hematocrit 32.4 % (42.0-52.0); Hemoglobin 9.8 g/dL (14.1-18.0); Lymphocytes # 1.3 K/mm3 (0.7-4.5); Lymphocytes % 19.2 % (10-50); Mean Corpuscular HGB Conc 30.3 g/dL (31.8-35.4); Mean Corpuscular Hemoglobin 29.9 pg (27.0-31.2); Mean Corpuscular Volume 98.7 fl (80-94); Mean Platelet Volume 8.7 fl (7.4-10.4); Monocytes # 0.5 K/mm3 (0.1-1.0); Monocytes % 7.5 % (1.7-9.3); Neutrophils # 4.6 K/mm3 (1.8-7.8); Neutrophils % 66.6 % (37.0-80.0); Platelet Count 396 K/mm3 (142-424); Red Blood Count 3.29 M/mm3 (4.60-6.20); Red Cell Distribution Width 17.3 % (11.5-17.5)
[2021-07-04 18:34] LABS: Chloride 113 mmol/L (98-107)
[2021-07-04 18:35] LABS: Potassium 4.6 mmoL/L (3.5-5.1); Sodium 141 mmol/L (136-145)
[2021-07-04 18:37] LABS: Blood Urea Nitrogen 48 mg/dl (9-20); Estimated Glomerular Filt Rate 39 ml/min (>60); GFR (African American) 47 ML/MIN (>60)
[2021-07-04 18:38] LABS: Anion Gap 14.6 mEq/L (5-15); Calcium 10.7 mg/dl (8.4-10.2); Carbon Dioxide 18 mmol/L (22.0-30.0); Glucose 132 mg/dl (74-100); Iron 42 ug/dL (49-181)
[2021-07-04 18:47] LABS: Total Iron Binding Capacity 260 ug/dL (261-462)
== END ==
PROVIDERS: PCP Family Medicine; Visit Provider Family Medicine
DX: I12.9 Hypertensive chronic kidney disease with stage 1 through stage 4 chronic kidney disease, or unspecified chronic kidney disease (principal); D50.9 Iron deficiency anemia, unspecified
CPT/HCPCS: 80048; 83540; 83550; 85025

== ENCOUNTER 2021-07-14 09:26 | Outpatient (CLI) | payer MEDICARE, MEDICAID, SELFPAY ==
[2021-07-14 09:52] VITALS: BP 129/85; PULSE 72; RESP 16; TEMP 36.4; O2SAT 96
[2021-07-14 10:10] VITALS: BP 129/85; PULSE 72; RESP 18; TEMP 36.4; O2SAT 96
[2021-07-14 11:00] VITALS: BP 136/83; PULSE 74; O2SAT 95
[2021-07-14 12:00] VITALS: BP 128/86; PULSE 78; O2SAT 96
[2021-07-14 13:12] VITALS: BP 152/85; PULSE 68; O2SAT 95
[2021-07-14 14:12] VITALS: BP 136/84; PULSE 82; O2SAT 95
== END 2021-07-14 14:20 | disposition home or self-care (01) ==
LOC: INF 09:28
PROVIDERS: PCP Family Medicine; Visit Provider Family Medicine
DX: D50.9 Iron deficiency anemia, unspecified (principal)
CPT/HCPCS: 96365; 96366; J1756

== ENCOUNTER → 2021-07-18 15:38 | Outpatient (CLI) | payer MEDICARE, MEDICAID, SELFPAY ==
[2021-07-18 15:59] LABS: Microscopic, Urine URINE MICROSCOPIC (MICROSCOPIC)
[2021-07-18 16:57] LABS: Appearance,Urine CLOUDY (Clear); Bilirubin,Urine Negative (Negative); Blood, Urine 3+ (Negative); Color,Urine YELLOW (Yellow); Glucose,Urine (UA) Negative (Negative); Ketones,Urine Negative (Negative); Leukocyte Esterase,Urine 2+ (Negative); Nitrate,Urine Negative (Negative); Protein,Urine 1+ (Negative); Urobilinogen,Urine 0.2 EU/dl (0.2)
[2021-07-18 17:26] LABS: Creatinine,Urine Random 42 mg/dL (Not Estab.)
[2021-07-18 17:34] LABS: Chloride 103 mmol/L (98-107); Potassium 4.2 mmoL/L (3.5-5.1); Sodium 137 mmol/L (136-145)
[2021-07-18 17:37] LABS: Anion Gap 14.2 mEq/L (5-15); Blood Urea Nitrogen 38 mg/dl (9-20); Carbon Dioxide 24 mmol/L (22.0-30.0); Estimated Glomerular Filt Rate 42 ml/min (>60); GFR (African American) 51 ML/MIN (>60); Glucose 229 mg/dl (74-100)
[2021-07-18 17:57] LABS: Calcium 12.4 mg/dl (8.4-10.2)
[2021-07-18 18:04] LABS: Basophils # 0.1 K/mm3 (0-0.2); Basophils % 0.8 % (0.1-2.0); Eosinophils # 0.4 K/mm3 (0.0-0.4); Eosinophils % 2.9 % (0.1-12.0); Hematocrit 32.9 % (42.0-52.0); Hemoglobin 10.4 g/dL (14.1-18.0); Lymphocytes # 1.1 K/mm3 (0.7-4.5); Lymphocytes % 8.5 % (10-50); Mean Corpuscular HGB Conc 31.6 g/dL (31.8-35.4); Mean Corpuscular Hemoglobin 29.9 pg (27.0-31.2); Mean Corpuscular Volume 94.5 fl (80-94); Mean Platelet Volume 8.5 fl (7.4-10.4); Monocytes # 0.8 K/mm3 (0.1-1.0); Monocytes % 6.6 % (1.7-9.3); Neutrophils # 10.4 K/mm3 (1.8-7.8); Neutrophils % 81.3 % (37.0-80.0); Platelet Count 413 K/mm3 (142-424); Red Blood Count 3.48 M/mm3 (4.60-6.20); Red Cell Distribution Width 16.7 % (11.5-17.5); White Blood Count 12.8 K/mm3 (4.8-10.8)
[2021-07-18 18:44] LABS: Bacteria,Urine 3+ /lpf; RBC,Urine TNTC #/hpf (0-3); Squamous Epithelial Cell,Urine Occasional #/hpf (0-5); WBC,Urine 50-100 #/hpf (0-3)
== END ==
PROVIDERS: PCP Family Medicine; Visit Provider Internal Medicine Nephrology
DX: N18.9 Chronic kidney disease, unspecified (principal); N17.9 Acute kidney failure, unspecified; B96.1 Klebsiella pneumoniae [K. pneumoniae] as the cause of diseases classified elsewhere; R82.90 Unspecified abnormal findings in urine
CPT/HCPCS: 80048; 81001; 82570; 84155; 85025; 87086; 87088; 87186

== ENCOUNTER → 2021-07-18 17:00 | Outpatient (CLI) | payer MEDICARE, MEDICAID, SELFPAY | PROVIDERS: PCP Family Medicine; Visit Provider Internal Medicine Nephrology | DX: N18.9 Chronic kidney disease, unspecified (principal) ==

== ENCOUNTER → 2021-07-21 13:07 | Outpatient (POV) | payer MEDICARE, MEDICAID, SELFPAY | PROVIDERS: Visit Provider Internal Medicine Nephrology | DX: Z00.00 Encounter for general adult medical examination without abnormal findings (principal) ==

== ENCOUNTER 2021-07-28 09:19 | Outpatient (CLI) | payer MEDICARE, MEDICAID, SELFPAY ==
[2021-07-28 09:26] VITALS: BP 140/84; PULSE 68; TEMP 36.4; O2SAT 94
[2021-07-28 12:45] VITALS: BP 115/73; PULSE 72; O2SAT 94
[2021-07-28 13:00] VITALS: BP 142/85; PULSE 72; O2SAT 95
== END 2021-07-28 13:00 | disposition home or self-care (01) ==
LOC: INF 09:20
PROVIDERS: PCP Family Medicine; Visit Provider Family Medicine
DX: D50.9 Iron deficiency anemia, unspecified (principal)
CPT/HCPCS: 96365; 96366; J1756

== ENCOUNTER → 2021-08-01 13:36 | Outpatient (CLI) | payer MEDICARE, MEDICAID, SELFPAY ==
[2021-08-01 14:05] LABS: Basophils # 0.1 K/mm3 (0-0.2); Basophils % 1.1 % (0.1-2.0); Eosinophils # 0.3 K/mm3 (0.0-0.4); Eosinophils % 3.6 % (0.1-12.0); Hematocrit 36.6 % (42.0-52.0); Hemoglobin 11.1 g/dL (14.1-18.0); Lymphocytes # 1.6 K/mm3 (0.7-4.5); Lymphocytes % 16.7 % (10-50); Mean Corpuscular HGB Conc 30.3 g/dL (31.8-35.4); Mean Corpuscular Hemoglobin 28.5 pg (27.0-31.2); Mean Corpuscular Volume 93.9 fl (80-94); Mean Platelet Volume 7.5 fl (7.4-10.4); Monocytes # 0.7 K/mm3 (0.1-1.0); Monocytes % 7.1 % (1.7-9.3); Neutrophils # 6.8 K/mm3 (1.8-7.8); Neutrophils % 71.5 % (37.0-80.0); Platelet Count 380 K/mm3 (142-424); Red Cell Distribution Width 16.5 % (11.5-17.5); White Blood Count 9.6 K/mm3 (4.8-10.8)
[2021-08-01 14:20] LABS: Chloride 108 mmol/L (98-107)
[2021-08-01 14:21] LABS: Potassium 3.8 mmoL/L (3.5-5.1); Sodium 141 mmol/L (136-145)
[2021-08-01 14:24] LABS: Anion Gap 12.8 mEq/L (5-15); Blood Urea Nitrogen 36 mg/dl (9-20); Carbon Dioxide 24 mmol/L (22.0-30.0); Estimated Glomerular Filt Rate 42 ml/min (>60); GFR (African American) 51 ML/MIN (>60); Glucose 184 mg/dl (74-100); Iron 57 ug/dL (49-181)
[2021-08-01 14:34] LABS: Total Iron Binding Capacity 172 ug/dL (261-462)
[2021-08-01 14:41] LABS: Calcium 12.5 mg/dl (8.4-10.2)
== END ==
PROVIDERS: PCP Family Medicine; Visit Provider Family Medicine
DX: I12.9 Hypertensive chronic kidney disease with stage 1 through stage 4 chronic kidney disease, or unspecified chronic kidney disease (principal); D50.0 Iron deficiency anemia secondary to blood loss (chronic)
CPT/HCPCS: 80048; 83540; 83550; 85025

== ENCOUNTER → 2021-08-05 10:44 | Outpatient (CLI) | payer MEDICARE, MEDICAID, SELFPAY ==
[2021-08-05 11:28] LABS: Calcium 11.7 mg/dl (8.4-10.2)
[2021-08-05 11:41] LABS: Intact Parathyroid Hormone 7.8 pg/mL (7.5-53.5)
[2021-08-06 17:09] LABS: Calcium, Ionized 7.2 mg/dL (4.5-5.6)
== END ==
PROVIDERS: PCP Family Medicine; Visit Provider Family Medicine
DX: E83.52 Hypercalcemia (principal)
CPT/HCPCS: 36415; 82310; 82330; 83970

== ENCOUNTER → 2021-08-17 10:47 | Outpatient (CLI) | payer MEDICARE, MEDICAID, SELFPAY ==
[2021-08-17 11:58] LABS: Basophils # 0.1 K/mm3 (0-0.2); Basophils % 1.8 % (0.1-2.0); Eosinophils # 0.4 K/mm3 (0.0-0.4); Eosinophils % 4.9 % (0.1-12.0); Hematocrit 35.1 % (42.0-52.0); Hemoglobin 11.1 g/dL (14.1-18.0); Lymphocytes # 1.5 K/mm3 (0.7-4.5); Lymphocytes % 20.6 % (10-50); Mean Corpuscular HGB Conc 31.6 g/dL (31.8-35.4); Mean Platelet Volume 8.1 fl (7.4-10.4); Monocytes # 0.5 K/mm3 (0.1-1.0); Monocytes % 6.3 % (1.7-9.3); Neutrophils % 66.4 % (37.0-80.0); Platelet Count 248 K/mm3 (142-424); Red Cell Distribution Width 17.1 % (11.5-17.5); White Blood Count 7.5 K/mm3 (4.8-10.8)
[2021-08-17 13:20] LABS: Anion Gap 16.6 mEq/L (5-15); Blood Urea Nitrogen 36 mg/dl (9-20); Calcium 11.9 mg/dl (8.4-10.2); Carbon Dioxide 22 mmol/L (22.0-30.0); Chloride 107 mmol/L (98-107); Estimated Glomerular Filt Rate 48 ml/min (>60); GFR (African American) 59 ML/MIN (>60); Glucose 179 mg/dl (74-100); Potassium 3.6 mmoL/L (3.5-5.1); Sodium 142 mmol/L (136-145)
== END ==
PROVIDERS: PCP Family Medicine; Visit Provider Family Medicine
DX: N18.4 Chronic kidney disease, stage 4 (severe) (principal)
CPT/HCPCS: 80048; 85025

== ENCOUNTER → 2021-08-29 15:39 | Outpatient (CLI) | payer MEDICARE, MEDICAID, SELFPAY ==
[2021-08-29 16:06] LABS: Basophils # 0.1 K/mm3 (0-0.2); Basophils % 0.8 % (0.1-2.0); Eosinophils # 0.3 K/mm3 (0.0-0.4); Eosinophils % 3.7 % (0.1-12.0); Hemoglobin 11.1 g/dL (14.1-18.0); Lymphocytes # 1.3 K/mm3 (0.7-4.5); Lymphocytes % 15.8 % (10-50); Mean Corpuscular HGB Conc 31.7 g/dL (31.8-35.4); Mean Corpuscular Hemoglobin 29.5 pg (27.0-31.2); Mean Platelet Volume 7.4 fl (7.4-10.4); Monocytes # 0.8 K/mm3 (0.1-1.0); Monocytes % 9.1 % (1.7-9.3); Neutrophils # 5.9 K/mm3 (1.8-7.8); Neutrophils % 70.5 % (37.0-80.0); Platelet Count 303 K/mm3 (142-424); Red Blood Count 3.76 M/mm3 (4.60-6.20); Red Cell Distribution Width 15.9 % (11.5-17.5); White Blood Count 8.4 K/mm3 (4.8-10.8)
[2021-08-29 17:04] LABS: Chloride 105 mmol/L (98-107); Potassium 4.2 mmoL/L (3.5-5.1); Sodium 139 mmol/L (136-145)
[2021-08-29 17:07] LABS: Anion Gap 17.2 mEq/L (5-15); Blood Urea Nitrogen 29 mg/dl (9-20); Carbon Dioxide 21 mmol/L (22.0-30.0); Estimated Glomerular Filt Rate 45 ml/min (>60); GFR (African American) 54 ML/MIN (>60); Iron 65 ug/dL (49-181)
[2021-08-29 17:08] LABS: Glucose 180 mg/dl (74-100)
[2021-08-29 17:16] LABS: Total Iron Binding Capacity 165 ug/dL (261-462)
[2021-08-29 18:30] LABS: Calcium 12.7 mg/dl (8.4-10.2)
== END ==
PROVIDERS: Visit Provider Family Medicine
DX: N18.4 Chronic kidney disease, stage 4 (severe) (principal)
CPT/HCPCS: 80048; 83540; 83550; 85025

== ENCOUNTER → 2021-09-12 10:03 | Outpatient (CLI) | payer MEDICARE, MEDICAID, SELFPAY ==
[2021-09-12 10:37] LABS: Microscopic, Urine URINE MICROSCOPIC (MICROSCOPIC)
[2021-09-12 10:40] LABS: Basophils # 0.1 K/mm3 (0-0.2); Basophils % 1.3 % (0.1-2.0); Eosinophils # 0.3 K/mm3 (0.0-0.4); Eosinophils % 4.9 % (0.1-12.0); Hematocrit 36.6 % (42.0-52.0); Lymphocytes # 1.1 K/mm3 (0.7-4.5); Lymphocytes % 16.8 % (10-50); Mean Corpuscular HGB Conc 29.9 g/dL (31.8-35.4); Mean Corpuscular Hemoglobin 30.1 pg (27.0-31.2); Mean Corpuscular Volume 100.5 fl (80-94); Mean Platelet Volume 7.9 fl (7.4-10.4); Monocytes # 0.4 K/mm3 (0.1-1.0); Monocytes % 6.2 % (1.7-9.3); Neutrophils # 4.6 K/mm3 (1.8-7.8); Neutrophils % 70.8 % (37.0-80.0); Platelet Count 346 K/mm3 (142-424); Red Blood Count 3.64 M/mm3 (4.60-6.20); Red Cell Distribution Width 16.9 % (11.5-17.5); White Blood Count 6.5 K/mm3 (4.8-10.8)
[2021-09-12 10:47] LABS: Appearance,Urine TURBID (Clear); Blood, Urine 3+ (Negative); Glucose,Urine (UA) Negative (Negative); Ketones,Urine 1+ (Negative); Leukocyte Esterase,Urine 3+ (Negative); Nitrate,Urine POSITIVE (Negative); PH,Urine 6.5 (5.0-8.5); Protein,Urine 3+ (Negative); Specific Gravity, Urine 1.015 (1.005-1.030)
[2021-09-12 11:04] LABS: Bilirubin,Urine 3+ (Negative)
[2021-09-12 11:05] LABS: Color,Urine RED (Yellow)
[2021-09-12 11:06] LABS: Amorphous Sediment,Urine 3+ /lpf; Bacteria,Urine 3+ /lpf; Calcium Oxalate Crystals,Urine 1+ /lpf; RBC,Urine TNTC #/hpf (0-3); Squamous Epithelial Cell,Urine Occasional #/hpf (0-5)
[2021-09-12 11:25] LABS: Chloride 106 mmol/L (98-107); Potassium 3.9 mmoL/L (3.5-5.1); Sodium 139 mmol/L (136-145)
[2021-09-12 11:28] LABS: Anion Gap 11.9 mEq/L (5-15); Blood Urea Nitrogen 36 mg/dl (9-20); Carbon Dioxide 25 mmol/L (22.0-30.0); Estimated Glomerular Filt Rate 42 ml/min (>60); GFR (African American) 51 ML/MIN (>60); Glucose 82 mg/dl (74-100)
[2021-09-12 11:37] LABS: Calcium 13.3 mg/dl (8.4-10.2)
== END ==
PROVIDERS: Visit Provider Family Medicine
DX: N18.4 Chronic kidney disease, stage 4 (severe) (principal); B96.1 Klebsiella pneumoniae [K. pneumoniae] as the cause of diseases classified elsewhere; B96.5 Pseudomonas (aeruginosa) (mallei) (pseudomallei) as the cause of diseases classified elsewhere; R82.90 Unspecified abnormal findings in urine
CPT/HCPCS: 80048; 81001; 85025; 87086; 87088; 87186

== ENCOUNTER → 2021-11-11 10:49 | Outpatient (CLI) | payer MEDICARE, MEDICAID, SELFPAY ==
[2021-11-11 10:57] LABS: Microscopic, Urine URINE MICROSCOPIC (MICROSCOPIC)
[2021-11-11 11:33] LABS: Appearance,Urine CLOUDY (Clear); Bilirubin,Urine Negative (Negative); Blood, Urine TRACE-I (Negative); Color,Urine YELLOW (Yellow); Glucose,Urine (UA) Negative (Negative); Ketones,Urine Negative (Negative); Leukocyte Esterase,Urine 3+ (Negative); Nitrate,Urine Negative (Negative); PH,Urine 6.5 (5.0-8.5); Protein,Urine Negative (Negative); Urobilinogen,Urine 0.2 EU/dl (0.2)
[2021-11-11 11:36] LABS: Hematocrit 33.1 % (42.0-52.0); Hemoglobin 9.7 g/dL (14.1-18.0); Mean Corpuscular HGB Conc 29.4 g/dL (31.8-35.4); Mean Corpuscular Hemoglobin 31.1 pg (27.0-31.2); Platelet Count 206 K/mm3 (142-424); Red Blood Count 3.12 M/mm3 (4.60-6.20); Red Cell Distribution Width 17.3 % (11.5-17.5)
[2021-11-11 11:44] LABS: Bacteria,Urine 3+ /lpf; WBC,Urine 50-100 #/hpf (0-3)
[2021-11-11 12:00] LABS: Creatinine,Urine Random 24 mg/dL (Not Estab.)
[2021-11-11 12:15] LABS: Albumin Level 2.6 g/dl (3.5-5.0); Anion Gap 13.5 mEq/L (5-15); Blood Urea Nitrogen 35 mg/dl (9-20); Carbon Dioxide 17 mmol/L (22.0-30.0); Chloride 105 mmol/L (98-107); Estimated Glomerular Filt Rate 39 ml/min (>60); GFR (African American) 47 ML/MIN (>60); Glucose 67 mg/dl (74-100); Phosphorous 4.8 mg/dl (2.5-4.5); Potassium 5.5 mmoL/L (3.5-5.1); Sodium 130 mmol/L (136-145)
[2021-11-11 12:32] LABS: 25-OH Vitamin D, Total 70.1 ng/mL (30-100)
== END ==
PROVIDERS: Internal Medicine Nephrology; PCP Family Medicine; Visit Provider Internal Medicine Nephrology
DX: N18.30 Chronic kidney disease, stage 3 unspecified (principal); R82.90 Unspecified abnormal findings in urine
CPT/HCPCS: 36415; 80069; 81001; 82306; 82570; 83970; 84155; 85014; 85018; 85048; 85049; 87086; 87088; 87186